=== PATIENT | male | born 1950 | race Caucasian/White ===

== ENCOUNTER 2020-03-06 17:38 | Emergency (ER) | payer OTHER ==
[2020-03-06] MEDS ORDERED: LIDOCAINE 1% MPF 5 ML VIAL ONE (18:28)
[2020-03-06] MEDS ORDERED: BUPIVACAINE 0.5% PF 10 ML VIAL ONE (18:29)
[2020-03-06] MEDS ORDERED: TETANUS & DIPHTHERIA TOX,ADULT 0.5 ML VIAL ONE (18:29)
--- NOTE | 2020-03-06 19:45 | RAD REPORT ---
EXAM DESCRIPTION: RAD - Hand Right 3 View - 03/06/2020 6:17 pm CLINICAL HISTORY: PAINlaceration, table saw injury right thumb COMPARISON: No comparisonsdelete select FINDINGS: No fractures confirmed. No acute right thumb bony abnormality identified. Elsewhere, no fracture seen. There is no dislocation or periosteal reaction noted. No foreign body o r significant soft tissue abnormality. IMPRESSION: No foreign body. No acute bone abnormality.
--- NOTE | 2020-03-06 19:56 | ER ---
Nurse's Notes [facility] Name: Matteo Hernandez Age: 69 yrs Sex: Male : 1950 Arrival Date: 03/06/2020 Time: 17:40 Bed 16 Private MD: Diagnosis: Laceration without foreign body of right thumb with damage to nail Presentation: 03/06 17:56 Chief complaint: Patient states: "I cut my right thumb with a table saw". Bleeding aa5 controlled by patient at this time. 17:56 Coronavirus screen: Proceed with normal triage. Ebola Screen: Patient negative for aa5 fever greater than or equal to 101.5 degrees Fahrenheit, and additional compatible Ebola Virus Disease symptoms. Complicating Factors: There are no complicating factors for this patient. Initial Sepsis Screen: Does the patient meet any 2 criteria? No. Patient's initial sepsis screen is negative. Does the patient have a suspected source of infection? No. Patient's initial sepsis screen is negative. Risk Assessment: Do you want to hurt yourself or someone else? Patient reports no desire to harm self or others. Onset of symptoms was March 06, 2020. 17:56 Acuity: JOHNNY 3 aa5 17:56 Method Of Arrival: Ambulatory aa5 Historical: - Allergies: 17:58 No Known Allergies; aa5 - PMHx: 17:58 Hypertension; aa5 - PSHx: 17:58 heart bypass; karl hip replacement; knee sx; Hernia repair; aa5 - Immunization history:: Last tetanus immunization: unknown. - Social history:: Smoking status: Patient reports the use of cigarette tobacco products, cigars. Screenin:00 Abuse screen: Denies threats or abuse. Nutritional screening: No deficits noted. rb1 Tuberculosis screening: No symptoms or risk factors identified. Fall Risk None identified. Assessment: 18:00 Reassessment: right thumb soaked in saline and iodine solution per MICROPALEONTOLOGIST . aa5 18:00 General: Appears in no apparent distress. Behavior is calm, cooperative. Pain: rb1 Complains of pain in palmar aspect of proximal phalanx of right thumb Pain currently is 4 out of 10 on a pain scale. Pain began 30 min ago. Neuro: Level of Consciousness is awake, alert, obeys commands, Oriented to person, place, time, situation. Cardiovascular: Capillary refill < 3 seconds. Respiratory: Airway is patent Respiratory effort is even, unlabored, Respiratory pattern is regular, symmetrical. GI: No signs and/or symptoms were reported involving the gastrointestinal system. : No signs and/or symptoms were reported regarding the genitourinary system. Derm: Skin is pink, warm \\T\\ dry. Musculoskeletal: Range of motion: intact in all extremities. Injury Description: Laceration sustained to palmar aspect of proximal phalanx of right thumb is contaminated, jagged, bleeding moderately. 18:55 Reassessment: Patient appears in no apparent distress at this time. Pt. is soaking his rb1 hand. 19:34 Reassessment: Provider at bedside performing sutures to right thumb. lp1 Vital Signs: 17:56 BP 114 / 72; Pulse 69; Resp 16 S; Temp 98.7(O); Pulse Ox 97% on R/A; Weight 83.01 kg aa5 (R); Height 5 ft. 10 in. (177.80 cm) (R); Pain 5/10; 20:07 BP 133 / 75; Pulse 67; Resp 16; Pulse Ox 97% ; ds4 17:56 Body Mass Index 26.26 (83.01 kg, 177.80 cm) aa5 ED Course: 17:40 Patient arrived in ED. as 17:44 Concepcion Deleon FNP-C is PHCP. kb 17:44 Phoenix Munoz MD is Attending Physician. kb 17:56 Arm band placed on Patient placed in an exam room, on a stretcher. aa5 18:00 Patient has correct armband on for positive identification. Bed in low position. Call rb1 light in reach. Side rails up X 1. Pulse ox on. NIBP on. 18:10 Triage completed. aa5 18:17 Gissel Richard, RN is Primary Nurse. rb1 18:18 Hand Right 3 View XRAY In Process Unspecified. EDMS 20:05 Dressings: Applied antibiotic ointment over sutures, covered with gauze and ds4 self-adherent dressing. 20:28 No provider procedures requiring assistance completed. Patient did not have IV access lp1 during this emergency room visit. Administered Medications: 18:45 Drug: Lidocaine (1 %) 1 vials Volume: 5 ml; Route: Infiltration; rb1 18:45 Drug: Bupivacaine (0.5 %) 1 vials Volume: 10 ml; Route: Infiltration; rb1 18:48 Drug: Tetanus-Diphtheria Toxoid Adult 0.5 ml {Production Grip: [employer]. Exp: rb1 11/29/2021. Lot #: [id number]. } Route: IM; Site: left deltoid; 19:30 Follow up: Response: No adverse reaction lp1 Outcome: 19:55 Discharge ordered by . jhoana 20:28 Discharged to home ambulatory. lp1 20:28 Condition: good 20:28 Discharge instructions given to patient, Instructed on discharge instructions, follow up and referral plans. wound care, Demonstrated understanding of instructions, follow-up care, wound care. 20:28 Patient left the ED. lp1 Signatures: Dispatcher [employer] EDMS Concepcion Deleon, INSPECTION MANAGER-C INSPECTION MANAGER-Cyn Al Audri, RN RN aa5 Amy Murray RN RN lp1 Mason Dominique ds4 Gissel Richard, RN RN rb1
--- NOTE | 2020-03-06 19:56 | EDPHYS ---
Physician Documentation [facility] Name: Matteo Hernandez Age: 69 yrs Sex: Male : 1950 Arrival Date: 03/06/2020 Time: 17:40 Bed 16 Private MD: ED Physician Phoenix Munoz HPI: 03/06 20:04 This 69 yrs old Male presents to ER via Ambulatory with complaints of kb Laceration. 20:04 The patient has a laceration related to: doing carpentry, from a power saw, occurred at home, and there are no complicating factors. The injury was accidental. The laceration(s) is(are) located on the palmar aspect of proximal phalanx of right thumb. Onset: The symptoms/episode began/occurred just prior to arrival. Associated signs and symptoms: The patient has no apparent associated signs or symptoms. The patient has not experienced similar symptoms in the past. The patient has not recently seen a physician. Pt cut his right thumb with saw just prior to arrival. Tissue flap noted. . Historical: - Allergies: 17:58 No Known Allergies; aa5 - PMHx: 17:58 Hypertension; aa5 - PSHx: 17:58 heart bypass; karl hip replacement; knee sx; Hernia repair; aa5 - Immunization history:: Last tetanus immunization: unknown. - Social history:: Smoking status: Patient reports the use of cigarette tobacco products, cigars. ROS: 20:02 Constitutional: Negative for fever, chills, and weight loss, Neck: Negative for injury, kb pain, and swelling, Cardiovascular: Negative for chest pain, palpitations, and edema, Respiratory: Negative for shortness of breath, cough, wheezing, and pleuritic chest pain, Abdomen/GI: Negative for abdominal pain, nausea, vomiting, diarrhea, and constipation, Back: Negative for injury and pain, MS/Extremity: Negative for injury and deformity, Neuro: Negative for headache, weakness, numbness, tingling, and seizure. 20:02 Skin: Positive for laceration(s), of the palmar aspect of proximal phalanx of right thumb. Exam: 20:02 Constitutional: This is a well developed, well nourished patient who is awake, alert, kb and in no acute distress. Head/Face: Normocephalic, atraumatic. Chest/axilla: Normal chest wall appearance and motion. Nontender with no deformity. No lesions are appreciated. Cardiovascular: Regular rate and rhythm with a normal S1 and S2. No gallops, murmurs, or rubs. Normal PMI, no JVD. No pulse deficits. Respiratory: Lungs have equal breath sounds bilaterally, clear to auscultation and percussion. No rales, rhonchi or wheezes noted. No increased work of breathing, no retractions or nasal flaring. Abdomen/GI: Soft, non-tender, with normal bowel sounds. No distension or tympany. No guarding or rebound. No evidence of tenderness throughout. MS/ Extremity: Pulses equal, no cyanosis. Neurovascular intact. Full, normal range of motion. Neuro: Awake and alert, GCS 15, oriented to person, place, time, and situation. Cranial nerves II-XII grossly intact. Motor strength 5/5 in all extremities. Sensory grossly intact. Cerebellar exam normal. Normal gait. 20:02 Skin: injury, laceration(s), the wound is approximately 4 cm(s), of the palmar aspect of proximal phalanx of right thumb, that can be described as clean, no foreign body, irregular, jagged, with mild bleeding. Vital Signs: 17:56 BP 114 / 72; Pulse 69; Resp 16 S; Temp 98.7(O); Pulse Ox 97% on R/A; Weight 83.01 kg aa5 (R); Height 5 ft. 10 in. (177.80 cm) (R); Pain 5/10; 20:07 BP 133 / 75; Pulse 67; Resp 16; Pulse Ox 97% ; ds4 17:56 Body Mass Index 26.26 (83.01 kg, 177.80 cm) aa5 Procedures: 18:38 Nerve block: (digital) of palmar aspect of proximal phalanx of right thumb Medication: kb Lidocaine 1% without epinephrine Marcaine 0.5%, Amount: 6 mls were injected, Effect: the patient has resolution of the pain, Set up for procedure. Performed by Concepcion HOUSTON Patient tolerated well. Laceration: 19:54 Wound Repair of 4cm ( 1.6in ) subcutaneous laceration to palmar aspect of proximal kb phalanx of right thumb. Irregularly shaped.. Skin/tissue flap noted.. Distal neuro/vascular/tendon intact. Anesthesia: Digital block administered with 1% lidocaine. Wound prep: Extensive cleansing with hibiclenz by me, Wound irrigation with saline by me. Skin closed with 14 5-0 Prolene using simple sutures and sterile technique. Patient tolerated well. MDM: 17:58 Patient medically screened. kb 20:02 Data reviewed: vital signs, nurses notes. Data interpreted: Pulse oximetry: on room air kb is 97 %. Interpretation: normal. Counseling: I had a detailed discussion with the patient and/or guardian regarding: the historical points, exam findings, and any diagnostic results supporting the discharge/admit diagnosis, radiology results, the need for outpatient follow up, a family practitioner, to return to the emergency department if symptoms worsen or persist or if there are any questions or concerns that arise at home. 03/06 18:01 Order name: Hand Right 3 View XRAY; Complete Time: 19:54 kb 03/06 18:01 Order name: Prolene, Sutures; Complete Time: 19:37 kb 03/06 18:01 Order name: Dressing - Wound; Complete Time: 20:05 kb 03/06 18:01 Order name: Gloves, Sterile; Complete Time: 18:51 kb 03/06 18:01 Order name: Setup Suture Tray; Complete Time: 18:51 kb Administered Medications: 18:45 Drug: Lidocaine (1 %) 1 vials Volume: 5 ml; Route: Infiltration; rb1 18:45 Drug: Bupivacaine (0.5 %) 1 vials Volume: 10 ml; Route: Infiltration; rb1 18:48 Drug: Tetanus-Diphtheria Toxoid Adult 0.5 ml {Organic Preparation Technician: [employer]. Exp: rb1 11/29/2021. Lot #: [id number]. } Route: IM; Site: left deltoid; 19:30 Follow up: Response: No adverse reaction lp1 Disposition: 03/06/20 19:55 Discharged to Home. Impression: Laceration without foreign body of right thumb with damage to nail. - Condition is Stable. - Discharge Instructions: Laceration Care, Adult, [id number]. - Medication Reconciliation Form, Thank You Letter, Antibiotic Education, Prescription Opioid Use form. - Follow up: Emergency Department; When: As needed; Reason: Worsening of condition. Follow up: Private Physician; When: 2 - 3 days; Reason: Recheck today's complaints, Continuance of care, Re-evaluation by your physician. Addendum: 03/10/2020 10:14 Co-signature as Attending Physician, Phoenix Munoz MD I agree with the assessment and k dr plan of care. Signatures: Dispatcher [employer] EDVA PanchoConcepcion, ROTATING FIELD ASSEMBLER-C ROTATING FIELD ASSEMBLER-Ckb Phoenix Munoz MD MD kdr Lucinda Bird RN RN aa5 Amy Murray RN RN lp1 Gissel Richard, RN RN rb1 Corrections: (The following items were deleted from the chart) 03/06 20:28 19:55 03/06/2020 19:55 Discharged to Home. Impression: Laceration without foreign body lp1 of right thumb with damage to nail. Condition is Stable. Forms are Medication Reconciliation Form, Thank You Letter, Antibiotic Education, Prescription Opioid Use. Follow up: Emergency Department; When: As needed; Reason: Worsening of condition. Follow up: Private Physician; When: 2 - 3 days; Reason: Recheck today's complaints, Continuance of care, Re-evaluation by your physician. kb
[2020-03-06 20:34] VITALS: TEMP 98.7; O2SAT 97
[2020-03-06 20:35] VITALS: BP 133/75
== END 2020-03-06 20:28 | disposition home or self-care (01) ==
LOC: ER 17:38
PROC: 0JQJ0ZZ Repair Right Hand Subcutaneous Tissue and Fascia, Open Approach (ICD-10-PCS; principal; 2020-03-06)
DX: S61.111A Laceration without foreign body of right thumb with damage to nail, initial encounter (principal); W31.2XXA Contact with powered woodworking and forming machines, initial encounter; Y93.89 Activity, other specified; Y92.009 Unspecified place in unspecified non-institutional (private) residence as the place of occurrence of the external cause; I10 Essential (primary) hypertension; Z72.0 Tobacco use; Z95.1 Presence of aortocoronary bypass graft
CPT/HCPCS: 64450; 90471; 90714; 99283

== ENCOUNTER 2021-03-30 09:03 | Emergency (ER) | payer OTHER, MEDICARE ==
--- OUTSIDE RECORDS SUMMARY | 2021-03-30 09:12 | XMS REPORT | Continuity of Care Document ---
:1950 Author Organization [facility] t Address [address] [place] [address] Dr. Price. [address] [place] [address] Care Team Providers Name Role Phone Barber Dodson MD Primary Care Physician Nato Smiley MD Attending Clinician Rachel TAYLOR Attending Clinician Roxana Forte MD Attending Clinician Sivakumar Mullins MD Attending Clinician Chiki Barber MD Attending Clinician Amilcar Pressley MD Attending Clinician RACHEL Attending Clinician Unavailable Shaggy Tai Attending Clinician Shaggy Tai Attending Clinician Unavailable Darwin Daily Attending Clinician SHERICE Admitting Clinician Unavailable Shaggy Tai Admitting Clinician Unavailable Darwin Daily Admitting Clinician Payers Payer Name Policy Type Policy Effective Date Expiration Date Sour ce Number [facility] MEDICAREUNITED [id number] 2019 [facility] 00:00:00 [facility] [id number] [facility] - [id number] 2019 NANDO Patel - MEDICARE [facility] CAREUNITED MEDICARE [id number] -Present Problems Condition Condition Condition Status Onset Resolution Last Treating Co mments Source Name Details Category Date Date Treatment Clinician Date Nondisplac Nondisplac Disease Active Overview : Williams ed ed 04-09 Formattin Methodi fracture fracture 00:00: g of this st of distal of distal 00 note phalanx of phalanx of might be right right different thumb, thumb, from the initial initial original. encounter encounter Added for open for open automatic fracture fracture ally from request for surgery [id number] Laceration Laceration Disease Active Overview : Williams of right of right 04-09 Formattin Met hodi thumb thumb 00:00: g of this st without without 00 note foreign foreign might be body with body with different damage to damage to from the nail nail original. Added automatic ally from request for surgery [id number] Screening Screening Disease Active [place] ston for colon for colon 02-06 Meth [place] cancer cancer 00:00: st 00 HIP Diagnosis Active 2016-10-18 Mem oria ARTHRITIS 08-05 14:26:00 l HIP 00:00: Kevin ARTHRITIS 00 Active 08/05/2016 [facility] [place] INFECTED Diagnosis Active 2016-02-05 M emoria HIP - 21:59:00 l INFECTED 00:00: Ernesto n HIP 00 Active 01/22/2016 [facility] Essential Problem 2018-11-01 Me moria (primary) 05:01:37 l hypertensi Ernesto n on Essential (primary) hypertensi on 11/01/2018 [facility] Arthritis Problem Active 2021-03-28 Me moria (disorder) 00:20:45 l [place] Arthritis (disorder) Active Problem 03/28/2021 [facility] Atheroscle Problem Active 2021-03-28 M emoria rosis of 00:20:45 l coronary Kevin artery Atheroscle (disorder) rosis of coronary artery (disorder) Active Problem 03/28/2021 [facility] Essential Problem Active 2021-03-28 Me moria hypertensi 00:20:45 l on Kevin (disorder) Essential hypertensi on (disorder) Active Problem 03/28/2021 [facility] Hyperchole Problem Active 2021-03-28 M emoria sterolemia 00:20:45 l (disorder) Ernesto n Hyperchole sterolemia (disorder) Active Problem 03/28/2021 [facility] Hyperlipid Problem Active 2021-03-28 M emoria emia 00:20:45 l (disorder) Ernesto n Hyperlipid emia (disorder) Active Problem 03/28/2021 [facility] Hypertensi Problem Active 2021-03-28 M emoria ve 00:20:45 l disorder, Kevin systemic Hypertensi arterial ve (disorder) disorder, systemic arterial (disorder) Active Problem 03/28/2021 [facility] Obesity Problem Active 2021-03-28 Jose jarrett (disorder) 00:20:45 l Obesity [place] (disorder) Active Problem 03/28/2021 [facility] Restless Problem Active 2021-03-28 Mem oria legs 00:20:45 l (disorder) Restless He rmann legs (disorder) Active Problem 03/28/2021 [facility] Benign Problem Active 2021-02-28 Memor ia hypertensi 04:10:52 l ve heart Benign Ernesto n disease hypertensi without ve heart congestive disease heart without failure congestive heart failure Active Problem 02/28/2021 eCW: [facility] Impaired Problem Active 2021-02-28 Mem oria fasting 04:10:52 l glucose Impaired Nara nn fasting glucose Active Problem 02/28/2021 eCW: [facility] Restless Problem Active 2021-02-28 Mem oria legs 04:10:52 l syndrome Restless Herm danita legs syndrome Active Problem 02/28/2021 eCW: [facility] Pure Problem Active 2021-02-28 Memor ia hyperchole 04:10:52 l sterolemia Pure Ernesto n hyperchole sterolemia Active Problem 02/28/2021 eCW: [facility] BMI Problem Active 2019-10-06 Memor ia 33.0-33.9, 05:10:18 l adult BMI Kevin 33.0-33.9, adult Active Problem 10/06/2019 eCW: [facility] Low back Problem Active 2021-02-28 Mem oria pain 04:10:52 l Low back Ernesto n pain Active Problem 02/28/2021 eCW: [facility] Coronary Problem Active 2021-02-28 Mem oria atheroscle 04:10:52 l rosis of Coronary Herm danita [place] atheroscle coronary rosis of artery [place] coronary artery Active Problem 02/28/2021 eCW: [facility] Tobacco Problem Active 2021-02-28 Jose jarrett use 04:10:52 l disorder Tobacco Nara nn use disorder Active Problem 02/28/2021 eCW: [facility] Disorder Problem Active 2021-02-28 Mem oria of 04:10:52 l prostate Disorder Herm danita of prostate Active Problem 02/28/2021 eCW: [facility] Dermatitis Diagnosis Active 2019-05-29 Memoria 04:12:11 l Kevin Dermatitis Active Diagnosis 05/29/2019 eCW: [facility] Encounter Diagnosis Active 2020-02-17 Memoria for 04:10:51 l screening, Ernesto n unspecifie Encounter d for screening, unspecifie d Active Diagnosis 02/17/2020 eCW: [facility] Encounter Diagnosis Active 2019-05-29 Memoria for 04:12:11 l general Kevin adult Encounter medical for examinatio general n with adult abnormal medical findings examinatio n with abnormal findings Active Diagnosis 05/29/2019 eCW: [facility] Hx of Problem Active 2021-02-28 Memor ia colonic 04:10:52 l polyps Hx of Kevin colonic polyps Active Problem 02/28/2021 eCW: [facility] Laceration Diagnosis Active 2020-04-04 Memoria of right 04:14:40 l thumb [place] without Laceration foreign of right body with thumb damage to without nail, foreign initial body with encounter damage to nail, initial encounter Active Diagnosis 04/04/2020 eCW: [facility] BMI Diagnosis Active 2020-03-22 Mem oria 28.0-28.9, 04:15:35 l adult BMI [place] 28.0-28.9, adult Active Diagnosis 03/22/2020 eCW: [facility] BMI Diagnosis Active 2020-02-17 Mem oria 27.0-27.9, 04:10:51 l adult BMI [place] 27.0-27.9, adult Active Diagnosis 02/17/2020 eCW: [facility] Screening Diagnosis Active 2020-02-17 Memoria for skin 04:10:51 l cancer [place] Screening for skin cancer Active Diagnosis 02/17/2020 eCW: [facility] Practice Screen for Diagnosis Active 2020-02-17 Memoria colon 04:10:51 l cancer Screen [place] for colon cancer Active Diagnosis 02/17/2020 eCW: [facility] INFECTION Diagnosis Active 2016-02-05 Memoria DUE TO 21:59:00 l OTHER [place] BARIATRIC INFECTION PROCEDU DUE TO OTHER BARIATRIC PROCEDU Active [facility] OSTEOARTHR Diagnosis Active 2016-10-18 Memoria ITIS OF 14:26:00 l HIP, [place] UNSPECIFIE OSTEOARTHR D ITIS OF HIP, UNSPECIFIE D Active [facility] Angina Problem Resolve 2021-03-28 2021-03-28 Memoria (disorder) d - 00:20:45 00:20:45 l Angina 00:00: Kevin (disorder) 00 Resolved 11/14/2004 Problem 03/28/2021 [facility] Myocardial Problem Resolve 2021-03-28 2021-03-28 Memoria infarction d 11-14 00:20:45 00:20:45 l (disorder) 00:00: Ernesto n Myocardial 00 infarction (disorder) Resolved 11/14/1993 Problem 03/28/2021 [facility] Allergies, Adverse Reactions, Alerts Allergy Allergy Status Severity Reaction(s) Onset Inactive Treating Comm ents Source Name Type Date Date Clinician Tramadol Propensi Active [facility] [place] ty to Intolerance 5-27 Metho di adverse 00:00: st reaction 00 s to drug tramadol tramadol Active stomach Memor ia upset 5-08 l 00:00: Kevin 00 cholmiac cholmiac Active swelling Jose jarrett in? ear in? ear 5-08 l drops drops 00:00: Kevin 00 Family History Family Member Diagnosis Comments Start Date Stop Date Source Natural mother Cancer [facility] Social History Social Habit Start Date Stop Date Quantity Comments Source History of tobacco Cigarette Smoker Williams use [facility] Tobacco Comment 2020-04-22 2020-04-22 cigar/day [facility] - 00:[facility]:00 00:00:00 [facility] Alcohol Comment 2020-04-22 2020-04-[address] [facility] - 00:00:00 00:00:00 [facility] Cigarettes smoked 2020-04-11 2020-04-11 Williams current (pack per 00:00:00 00:00:[address] day) - Reported Tobacco use and 2020-04-11 2020-04-11 Current user Williams exposure 00:00:00 00:00:00 [facility] Alcohol intake 2020-04-11 2020-04-11 Current drinker [place] 00:00:00 00:00:00 of alcohol [facility] (finding) Social History 2018-10-31 2018-10-31 [facility] ermann 05:59:59 05:59:59 Sex [birth year] Williams 00:00:00 00:00:00 [facility] Smoking Status Start Date Stop Date Source Current every day smoker 2020-04-11 00:00:00 [facility] Baker Medications Ordered Filled Start Stop Current Ordering Indication Dosage Frequency Signature Comments Components Source Medication Medication Date Date Medication? Clinician (SIG) Name Name ramipril Yes 10 mg = 1 M emoria mg oral 5-11 cap, PO, l capsule 19:22: Daily, # Ernesto n 00 30 cap, 0 Refill(s), Pharmacy: [facility] #[id number], 177.8, cm, 01/15/20 14:55:00 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, Height, 85.455, kg, 01/15/20 14:55:00 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, Weight ramipril Yes 10 mg = 1 M emoria mg oral 5-11 cap, PO, l capsule 19:22: Daily, # Ernesto n 00 30 cap, 0 Refill(s), Pharmacy: [facility] #[id number], 177.8, cm, 01/15/20 14:55:00 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, Height, 85.455, kg, 01/15/20 14:55:00 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, Weight ramipril 10 Yes 10 mg = 1 M emoria mg oral 5-11 cap, PO, l capsule 19:22: Daily, # Ernesto n 00 30 cap, 0 Refill(s), Pharmacy: [facility] #[id number], 177.8, cm, 01/15/20 14:55:00 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, Height, 85.455, kg, 01/15/20 14:55:00 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, Weight Gabapentin 0 Yes Iveth 2 TABS M emoria 4-17 [place] l 04:10: [place] 52 Gabapentin Yes Iveth 2 TABS M emoria 4-17 [place] l 04:10: [place] 52 Gabapentin Yes Iveth 2 TABS M emoria 4-17 [place]enni l 04:10: ascorbic 2020-0 Yes Take by [facility] (VITAMIN C 09:34: Medical ORAL) 57 Center b complex 2020-0 Yes 1{capsu QD Take [address] vitamins 6-12 le} capsule by [facility] - capsule 09:34: mouth Medical 57 daily. Center ubidecareno 2019-0 Yes Take by [facility] ne (COQ-10 6-12 [facility]. [facility] - ORAL) 09:34: Medical 57 Center docosahexae 2020-0 Yes Take by [facility] noic 6-12 [facility]. [facility] - acid/epa 09:34: Medical (FISH OIL 57 Center ORAL) furosemide 2020-0 Yes 20mg Q.5D Take [address] (LASIX) 20 6-12 by mouth 2 [facility] es - MG tablet 09:34: (two) Medical 57 times Center daily. gabapentin 2020-0 Yes 100mg Q.[id number] Take [address] (NEURONTIN) 6-12 [id number] mg by L ukes - 100 MG 09:34: 3D mouth 3 Medical capsule 57 (three) Center times daily. HYDROcodone 2020-0 Yes 1{tbl} Take [address] -acetaminop 6-12 tablet by Althea es - hen (NORCO 09:34: mouth Medica l 10-325) 57 every 6 Center 10-325 mg (six) per tablet hours as needed for Pain. multivitami 2020-0 Yes 1{capsu QD Take [address] n capsule 6-12 le} capsule by Luke s - 09:34: mouth Medical 57 daily. Center aspirin 325 2020-0 Yes 325mg QD Take [address] MG tablet 6-12 mg by [facility] - 09:34: mouth Medical 57 daily. Center atorvastati 2020-0 Yes 40mg QD Take [address] n (LIPITOR) 6-12 by mouth Luke s - 40 MG 09:34: daily. Medical tablet 57 Center bisoprolol 2020-0 Yes 10mg QD Take [address] (ZEBETA) 10 6-12 by mouth Luke s - MG tablet 09:34: daily. Medica l 57 Center ramipriL 2020-0 Yes 10mg QD Take [address] (ALTACE) 10 6-12 by mouth Luke s - MG capsule 09:34: daily. Medic al 57 Center rOPINIRole 2020-0 Yes 2mg QD Take [address] (REQUIP) 2 6-12 by mouth [facility] - MG tablet 09:34: nightly. Medi nicholas 57 Center aspirin 325 2020-0 Yes 325mg QD Take 325 [place] MG tablet 5-28 mg by Methodi 15:48: mouth st 50 daily. atorvastati 2020-0 Yes 40mg QD Take 40 mg Lin n (LIPITOR) 5-28 by mouth Meth enedina 40 MG 15:48: daily. st tablet 50 bisoprolol 2020-0 Yes 10mg QD Take 10 mg [place] (ZEBETA) 10 5-28 by mouth Meth enedina MG tablet 15:48: daily. st 50 rOPINIRole 2020-0 Yes 2mg QD Take 2 mg [place] (REQUIP) 2 5-28 by mouth Metho di MG tablet 15:48: nightly. st 50 ramipriL 2020-0 Yes 10mg QD Take 10 mg [place] [facility] (ALTACE) 10 5-28 by mouth Meth enedina MG capsule 15:48: daily. st 50 gabapentin 2020-0 Yes 100mg Q.[id number] Take 100 Lin (NEURONTIN) 5-28 [id number] mg by M ethodi 100 mg 15:48: 3D mouth 3 st capsule 50 (three) times a day. coenzyme 2020-0 Yes 10mg QD Take 10 mg [place] [facility] Q10 (Co -28 by mouth Methodi Q-10) 10 mg 15:48: daily. st capsule 50 ascorbic 2020-0 Yes Take by [place] acid - mouth. Methodi (VITAMIN C 15:48: st ORAL) 50 b complex 2020-0 Yes 1{capsu QD Take 1 [place] [facility] vitamins - le} capsule by Metho di capsule 15:48: mouth st 50 daily. MULTIVITAMI 2020-0 Yes Take by [place] [facility] N ORAL - mouth. Methodi 15:48: st 50 furosemide 2020-0 Yes 20mg Q.5D Take 20 mg [place] (LASIX) 20 - by mouth 2 Met hodi mg tablet 15:48: (two) st 50 times a day. docosahexae 2020-0 Yes Take by [place] [facility] noic 04-10 mouth. Methodi acid/epa 15:48: st (FISH OIL 50 ORAL) clindamycin 2020-0 2020- No 300mg Q.[id number] Take 1 Williams (CLEOCIN) 04-09 06-10 [id number] capsule Methodi 300 MG 00:00: 23:59 3D ([address] capsule 00 :00 total) by mouth 3 (three) times a day for 14 days. aspirin 2020-0 Yes Iveth 1 tab(s) Me moria 5-09 [place] l 04:15: 35 ropinirole 2020-0 Yes Iveth 1 tab(s) Memoria 5-09 Yenni l 04:15: 35 furosemide 2020-0 Yes Iveth 1 tab(s) Memoria 5-09 [place] l 04:15: 35 atorvastati 2020-0 Yes Iveth 1 tab(s) Memoria n 5-09 [place] l 04:15: 35 Vitamin C 2020-0 Yes Iveth 1 tab(s) Memoria 5-09 [place] l 04:15: 35 Fish Oil 2020-0 Yes Iveth 1 cap(s) M emoria 5-09 [place]i l 04:15: 35 Ramipril 2020-0 Yes Iveth TAKE 1 Mem oria 5- Yenni CAPSULE BY l 04:15: MOUTH Kevin 35 EVERY DAY gabapentin 2020-0 Yes Iveth 1 cap(s) Memoria 5-09 [place]enni l 04:15: [place] 35 aspirin 2020-0 Yes Iveth 1 tab(s) Me moria 5-09 [place] l 04:15: [place] 35 ropinirole 2020-0 Yes Iveth 1 tab(s) Memoria 5-09 Yenni l 04:15: Kevin 35 furosemide 2020-0 Yes Iveth 1 tab(s) Memoria 5-09 [place] l 04:15: [place] 35 atorvastati 2020-0 Yes Iveth 1 tab(s) Memoria n 5-09 [place]i l 04:15: [place] 35 Vitamin C 2020-0 Yes Iveth 1 tab(s) Memoria 5-09 [place] l 04:15: [place] 35 Fish Oil 2020-0 Yes Iveth 1 cap(s) M emoria 5-09 [place] l 04:15: Kevin 35 Ramipril 2020-0 Yes Iveth TAKE 1 Mem oria 5-09 [place] CAPSULE BY l 04:15: MOUTH Kevin 35 EVERY DAY gabapentin 2020-0 Yes Iveth 1 cap(s) Memoria 5-09 [place]i l 04:15: Kevin 35 aspirin 2020-0 Yes Iveth 1 tab(s) Me moria 5-09 [place]i l 04:15: Kevin 35 ropinirole 2020-0 Yes Iveth 1 tab(s) Memoria 5-09 [place]i l 04:15: 35 furosemide 2020-0 Yes Iveth 1 tab(s) Memoria 5-09 [place] l 04:15: [place] 35 atorvastati 2020-0 Yes Iveth 1 tab(s) Memoria n 5-09 [place] l 04:15: Kevin 35 Vitamin C 2020-0 Yes Iveth 1 tab(s) Memoria 5-09 [place] l 04:15: [place] 35 Fish Oil 2020-0 Yes Iveth 1 cap(s) M emoria 5-09 [place] l 04:15: [place] 35 Ramipril 2020-0 Yes Iveth TAKE 1 Mem oria 5-09 [place] CAPSULE BY l 04:15: MOUTH Kevin 35 EVERY DAY gabapentin 2020-0 Yes Iveth 1 cap(s) Memoria 5-09 [place] l 04:15: Kevin 35 amoxicillin 2020-0 Yes Iveth 1 tab(s) Memoria -clavulanat 5-08 Yenni l e 00:00: Kevin 00 amoxicillin 2020-0 Yes Iveth 1 tab(s) Memoria -clavulanat 5-08 Yenni l e 00:00: Kevin 00 amoxicillin 2020-0 Yes Iveth 1 tab(s) Memoria -clavulanat 5-08 Yenni l e 00:00: [place] 00 Ramipril 2020-0 Yes Iveth 1 cap(s) M emoria 4-05 Yenni once daily l 04:10: orally 90 [place] 51 days Ropinirole 2020-0 Yes Iveth 1 TAB(S) Memoria Hydrochlori 4-05 [place] 1-2 HRS l de 04:10: BEFORE Kevin 51 BEDTIME ORALLY 30 DAYS Gabapentin 2020-0 Yes Iveth TAKE 1 M emoria 4-05 [place] CAPSULE BY l 04:10: MOUTH Kevin 51 THREE TIMES DAILY NEEDED Ropinirole 2020-0 Yes Iveth 1 TAB(S) Memoria Hydrochlori 4-05 [place] 1-2 HRS l de 04:10: BEFORE [place] 51 BEDTIME ORALLY 30 DAYS Ramipril 2020-0 Yes Iveth 1 cap(s) M emoria 4-05 Yenni once daily l 04:10: orally 90 [place] 51 days Ropinirole 2020-0 Yes Iveth 1 TAB(S) Memoria Hydrochlori 4-05 Yenni 1-2 HRS l de 04:10: BEFORE Kevin 51 BEDTIME ORALLY 30 DAYS Gabapentin 2020-0 Yes Iveth TAKE 1 M emoria 4-05 [place]enn[place] CAPSULE BY l 04:10: MOUTH Kevin 51 THREE TIMES DAILY NEEDED Ropinirole 2020-0 Yes Iveth 1 TAB(S) Memoria Hydrochlori 4-05 Yenni 1-2 HRS l de 04:10: BEFORE [place] 51 BEDTIME ORALLY 30 DAYS Ramipril 2020-0 Yes Iveth 1 cap(s) M emoria 4-05 Yenn[place] once daily l 04:10: orally 90 [place] 51 days Ropinirole 2020-0 Yes Iveth 1 TAB(S) Memoria Hydrochlori 4-05 Yenni 1-2 HRS l de 04:10: BEFORE [place] 51 BEDTIME ORALLY 30 DAYS Gabapentin 2020-0 Yes Iveth TAKE 1 M emoria 4-05 Yenni CAPSULE BY l 04:10: MOUTH [place] 51 THREE TIMES DAILY NEEDED Ropinirole 2020-0 Yes Iveth 1 TAB(S) Memoria Hydrochlori 4-05 [place] 1-2 HRS l de 04:10: BEFORE Kevin 51 BEDTIME ORALLY 30 DAYS amLODIPine 2020-0 No 5 mg = 1 Mem oria 5 mg oral 3-03 tab, PO, l tablet 21:38: Daily, 0 Kevin 00 Refill(s) amLODIPine 2020-0 No 5 mg = 1 Mem oria 5 mg oral 3-03 tab, PO, l tablet 21:38: Daily, 0 Kevin 00 Refill(s) amLODIPine 2020-0 No 5 mg = 1 Mem oria 5 mg oral 3-03 tab, PO, l tablet 21:38: Daily, 0 Kevin 00 Refill(s) gabapentin 2020-0 Yes 100 mg = 1 M emoria 100 MG Oral 3-03 cap, PO, l Capsule 20:56: TID, 0 [place] 00 Refill(s) Fish Oil 2020-0 Yes = 1 cap, Memor ia oral 3-03 PO, Daily, l capsule 20:56: # 100 cap, Herm danita 00 0 Refill(s) gabapentin 2020-0 Yes 100 mg = 1 M emoria 100 MG Oral 3-03 cap, PO, l Capsule 20:56: TID, 0 [place] 00 Refill(s) Fish Oil 2020-0 Yes = 1 cap, Memor ia oral 3-03 PO, Daily, l capsule 20:56: # 100 cap, Herm danita 00 0 Refill(s) gabapentin 2020-0 Yes 100 mg = 1 M emoria 100 MG Oral 3-03 cap, PO, l Capsule 20:56: TID, 0 [place] 00 Refill(s) Fish Oil 2020-0 Yes = 1 cap, Memor ia oral 3-03 PO, Daily, l capsule 20:56: # 100 cap, Herm danita 00 0 Refill(s) HYDROcodone 2020-0 Yes 60{tbl} Q6H Take 60 Lin -acetaminop 3-03 tablets by Me cedric marrero (NORCO) 00:00: mouth st 10-325 mg 00 every 6 per tablet (six) hours as needed. Viagra 2019- Yes Iveth 1 tab(s) Mem oria 1-21 [place]enni l 00:00: Viagra 2019 Yes Iveth 1 tab(s) Mem oria 1-21 [place]enni l 00:00: Viagra 2019 Yes Iveth 1 tab(s) Mem oria 1-21 Yenni l 00:00: Ropinirole 2019-0 Yes Ryley 1 TAB(S) Mem oria Hydrochlori 7-16 [place] 1-2 HRS l de 04:12: BEFORE BEDTIME ORALLY 30 DAYS Ropinirole 2019-0 Yes Ryley 1 TAB(S) Mem oria Hydrochlori 7-16 [place] 1-2 HRS l de 04:12: BEFORE [place] 11 BEDTIME ORALLY 30 DAYS Ropinirole 2019-0 Yes Ryley 1 TAB(S) Mem oria Hydrochlori 7-16 [place] 1-2 HRS l de 04:12: BEFORE BEDTIME ORALLY 30 DAYS clobetasol 2019-0 Yes Iveth 1 reno Me moria topical 7-12 [place] 00:00: gabapentin 2019-0 Yes Ryley 1 cap(s) Mem oria 7-12 [place] l 00:00: clobetasol 2019-0 Yes Iveth 1 reno Me moria topical 7-12 [place] 00:00: gabapentin 2019-0 Yes Ryley 1 cap(s) Mem oria 7-12 [place] l 00:00: clobetasol 2019-0 Yes Iveth 1 reno Me moria topical 7-12 Yenni l 00:00: gabapentin 2019-0 Yes Ryley 1 cap(s) Mem oria 7-12 [place] l 00:00: Furosemide 2017-11 Yes 20 mg = 1 Me moria 20 MG Oral 2-18 tab, PO, l Tablet 00:51: Daily, PRN Nara nn 33 Edema, # 90 tab, 3 Refill(s), Pharmacy: [facility] [id number] Furosemide 2017-11 Yes 20 mg = 1 Me moria 20 MG Oral 2-18 tab, PO, l Tablet 00:51: Daily, PRN Nara nn 33 Edema, # 90 tab, 3 Refill(s), Pharmacy: [facility] [place] [id number] Furosemide 2017-11 Yes 20 mg = 1 Me moria 20 MG Oral 2-18 tab, PO, l Tablet 00:51: Daily, PRN Nara nn 33 Edema, # 90 tab, 3 Refill(s), Pharmacy: [facility] [place] [id number] bisoprolol 2017-11 Yes 10 mg = 1 Me moria 10 mg oral 2-18 tab, PO, l tablet 00:51: Daily, # Kevin 31 90 tab, 3 Refill(s), Pharmacy: [facility] [place] [id number] bisoprolol 2017-11 Yes 10 mg = 1 Me moria 10 mg oral 2-18 tab, PO, l tablet 00:51: Daily, # Kevin 31 90 tab, 3 Refill(s), Pharmacy: [facility] [place] [id number] bisoprolol 2017-11 Yes 10 mg = 1 Me moria 10 mg oral 2-18 tab, PO, l tablet 00:51: Daily, # Kevin 31 90 tab, 3 Refill(s), Pharmacy: [facility] [place] [id number] atorvastati 2017-11 Yes 40 mg = 1 M emoria n 40 mg 2-18 tab, PO, l oral tablet 00:51: Bedtime, # Gilman 26 90 tab, 3 Refill(s), Pharmacy: [facility] [place] [id number] atorvastati 2017-11 Yes 40 mg = 1 M emoria n 40 mg 2-18 tab, PO, l oral tablet 00:51: Bedtime, # Kevin 26 90 tab, 3 Refill(s), Pharmacy: [facility] [place] [id number] atorvastati 2017-11 Yes 40 mg = 1 M emoria n 40 mg 2-18 tab, PO, l oral tablet 00:51: Bedtime, # Kevin 26 90 tab, 3 Refill(s), Pharmacy: [facility] [place] [id number] ramipril 10 2017-11 Yes 10 mg = 1 M emoria mg oral 2-18 cap, PO, l capsule 00:51: Daily, # Ernesto n 00 90 cap, 3 Refill(s), Pharmacy: [facility] [place] [id number] ramipril 2017-11 Yes 10 mg = 1 M emoria mg oral 2-18 cap, PO, l capsule 00:51: Daily, # Ernesto n 00 90 cap, 3 Refill(s), Pharmacy: [facility] [place] [facility] [id number] ramipril 2017-11 Yes 10 mg = 1 M emoria mg oral 2-18 cap, PO, l capsule 00:51: Daily, # Ernesto n 00 90 cap, 3 Refill(s), Pharmacy: [facility] [id number] rOPINIRole 2017-11 Yes 2 mg = 1 Mem oria 2 mg oral 2-17 tab, PO, l tablet 21:51: Daily, 0 Kevin 00 Refill(s) rOPINIRole 2017-11 Yes 2 mg = 1 Mem oria 2 mg oral 2-17 tab, PO, l tablet 21:51: Daily, 0 Kevin 00 Refill(s) rOPINIRole 2017-11 Yes 2 mg = 1 Mem oria 2 mg oral 2-17 tab, PO, l tablet 21:51: Daily, 0 [place] 00 Refill(s) atorvastati 2017-11 No 40 mg = 1 M emoria n 40 mg 1-28 tab, PO, l oral tablet 14:43: Bedtime, # Gilman 22 90 tab, 0 Refill(s), Pharmacy: [facility] [id number] atorvastati 2017-11 No 40 mg = 1 M emoria n 40 mg 1-28 tab, PO, l oral tablet 14:43: Bedtime, # Kevin 22 90 tab, 0 Refill(s), Pharmacy: [facility] [place] [id number] atorvastati 2017-11 No 40 mg = 1 M emoria n 40 mg 1-28 tab, PO, l oral tablet 14:43: Bedtime, # [place] 22 90 tab, 0 Refill(s), Pharmacy: [facility] [place] [id number] triamcinolo Yes Ryley 1 reno Memor ia ne topical 5-22 [place] l 00:00: [place] triamcinolo Yes Ryley 1 reno Memor ia ne topical 5-22 [place] l 00:00: [place] 00 triamcinolo 2018-0 Yes Ryley 1 reno Memor ia ne topical 5-22 [place] l 00:00: Kevin 00 Acetaminoph 2015-11 Yes 1-2 tab, Me moria en 325 MG / 0-14 PO, Q4-6H, l Hydrocodone 15:08: PRN Pain, H ermann Bitartrate 00 X 5 day, # 7.5 MG Oral 42 tab, 0 Tablet Refill(s) [[place] 7.5/325] senna 8.6 2015-11 Yes 17.2 mg = Mem oria mg oral 0-14 2 tab, PO, l tablet 15:08: Bedtime, Gilman 00 PRN Constipati on, AVAILABLE OVER THE COUNTER WITHOUT PRESCRIPTI ON, X 10 day, # 20 tab, 0 Refill(s) Docusate 2015-11 Yes 100 mg = 1 Mem oria Sodium 100 0-14 cap, PO, l MG Oral 15:08: BID, Gilman Capsule 00 AVAILABLE OVER THE COUNTER WITHOUT PRESCRIPTI ON, # 60 cap, 0 Refill(s) Silver 2015-11 Yes 1 appl, Memoria Sulfadiazin 0-14 TOP, BID, l e 10 MG/ML 15:08: 0 Kevin Topical 00 Refill(s) Cream [Silvadene] Aspirin 81 2015-11 Yes 81 mg = 1 Me moria MG Chewable 0-14 tab, PO, l Tablet 15:08: BID, # 42 Ernesto n 00 tab, 0 Refill(s) Acetaminoph 2015-11 Yes 1-2 tab, Me moria en 325 MG / 0-14 PO, Q4-6H, l Hydrocodone 15:08: PRN Pain, H ermann Bitartrate 00 X 5 day, # 7.5 MG Oral 42 tab, 0 Tablet Refill(s) [[place] 7.5/325] senna 8.6 2015-11 Yes 17.2 mg = Mem oria mg oral 0-14 2 tab, PO, l tablet 15:08: Bedtime, Gilman 00 PRN Constipati on, AVAILABLE OVER THE COUNTER WITHOUT PRESCRIPTI ON, X 10 day, # 20 tab, 0 Refill(s) Docusate 2015-11 Yes 100 mg = 1 Mem oria Sodium 100 0-14 cap, PO, l MG Oral 15:08: BID, Gilman Capsule 00 AVAILABLE OVER THE COUNTER WITHOUT PRESCRIPTI ON, # 60 cap, 0 Refill(s) Silver 2015-11 Yes 1 appl, Memoria Sulfadiazin 0-14 TOP, BID, l e 10 MG/ML 15:08: 0 Gilman Topical 00 Refill(s) Cream [Silvadene] Aspirin 81 2015-11 Yes 81 mg = 1 Me moria MG Chewable 0-14 tab, PO, l Tablet 15:08: BID, # 42 Ernesto n 00 tab, 0 Refill(s) Acetaminoph 2015-11 Yes 1-2 tab, Me moria en 325 MG / 0-14 PO, Q4-6H, l Hydrocodone 15:08: PRN Pain, H ermann Bitartrate 00 X 5 day, # 7.5 MG Oral 42 tab, 0 Tablet Refill(s) [[place] 7.5/325] senna 8.6 2015-11 Yes 17.2 mg = Mem oria mg oral 0-14 2 tab, PO, l tablet 15:08: Bedtime, Kevin 00 PRN Constipati on, AVAILABLE OVER THE COUNTER WITHOUT PRESCRIPTI ON, X 10 day, # 20 tab, 0 Refill(s) Docusate 2015-11 Yes 100 mg = 1 Mem oria Sodium 100 0-14 cap, PO, l MG Oral 15:08: BID, Kevin Capsule 00 AVAILABLE OVER THE COUNTER WITHOUT PRESCRIPTI ON, # 60 cap, 0 Refill(s) Silver 2015-11 Yes 1 appl, Memoria Sulfadiazin 0-14 TOP, BID, l e 10 MG/ML 15:08: 0 Kevin Topical 00 Refill(s) Cream [Silvadene] Aspirin 81 2015-11 Yes 81 mg = 1 Me moria MG Chewable 0-14 tab, PO, l Tablet 15:08: BID, # 42 Ernesto n 00 tab, 0 Refill(s) Dexamethaso 2015-11 No Notes: Memoria ne 0-14 MEDICATION l 14:30: WASTE Kevin 00 Product Size: 10 mg Product Wasted: ___ mg Dexamethaso 2015-11 No Notes: Memoria ne 0-14 MEDICATION l 14:30: WASTE Kevin 00 Product Size: 10 mg Product Wasted: ___ mg Dexamethaso 2015-11 No Notes: Memoria ne 0-14 MEDICATION l 14:30: WASTE Product Size: 10 mg Product Wasted: ___ mg Neosporin 2015-11 No Notes: Memori a 0-14 Non-Formul l 14:00: jane Drug. Kevin 00 (Same As: Neosporin) Bisoprolol 2015-11 No Notes: Memor ia Fumarate 10 0-14 Non-Formul l MG / 14:00: jane Drug Gilman Hydrochloro (Same As: thiazide Ziac) 6.25 MG Oral Tablet Ramipril 2015-11 No Notes: Memoria 0-14 (Same l 14:00: as:Altace) Kevin 00 Neosporin 2015-11 No Notes: Memori a 0-14 Non-Formul l 14:00: jane Drug. (Same As: Neosporin) Bisoprolol 2015-11 No Notes: Memor ia Fumarate 10 0-14 Non-Formul l MG / 14:00: jane Drug [place]man Hydrochloro (Same As: thiazide Ziac) 6.25 MG Oral Tablet Ramipril 2015-11 No Notes: Memoria 0-14 (Same l 14:00: as:Altace) Gilman 00 Neosporin 2015-11 No Notes: Memori a 0-14 Non-Formul l 14:00: jane Drug. (Same As: Neosporin) Bisoprolol 2015-11 No Notes: Memor ia Fumarate 10 0-14 Non-Formul l MG / 14:00: jane Drug Kevin Hydrochloro (Same As: thiazide Ziac) 6.25 MG Oral Tablet Ramipril 2015-11 No Notes: Memoria 0-14 (Same l 14:00: as:Altace) Gilman 00 celecoxib 2015-11 Yes 200 mg = 1 Me moria 200 MG Oral 0-14 cap, PO, l Capsule 13:53: BID, # 28 Nara nn [Celebrex] 00 cap, 0 Refill(s), Pharmacy: [facility] [id number] celecoxib 2015-11 Yes 200 mg = 1 Me moria 200 MG Oral 0-14 cap, PO, l Capsule 13:53: BID, # 28 Nara nn [Celebrex] 00 cap, 0 Refill(s), Pharmacy: [facility] [id number] celecoxib 2015-11 Yes 200 mg = 1 Me moria 200 MG Oral 0-14 cap, PO, l Capsule 13:53: BID, # 28 Nara nn [Celebrex] 00 cap, 0 Refill(s), Pharmacy: [email or web address] [id number] Zofran 2015-11 No Notes: Memoria 0-14 (Same as: l 05:00: Zofran Kevin 00 ODT) Zofran 2015-11 No Notes: Memoria 0-14 (Same as: l 05:00: Zofran Gilman 00 ODT) Zofran 2015-11 No Notes: Memoria 0-14 (Same as: l 05:00: Zofran Gilman 00 ODT) ropinirole 2015-11 No Notes: Memor ia 0-14 (Same as: l 03:00: Requip) ropinirole 2015-11 No Notes: Memor ia 0-14 (Same as: l 03:00: Requip) ropinirole 2015-11 No Notes: Memor ia 0-14 (Same as: l 03:00: Requip) ropinirole 2015-11 No Notes: Memor ia 0-14 (Same as: l 02:00: Requip) atorvastati 2015-11 No Notes: Jose jarrett n 0-14 (Same as: l 02:00: Lipitor) ropinirole 2015-11 No Notes: Memor ia 0-14 (Same as: l 02:00: Requip) atorvastati 2015-11 No Notes: Jose jarrett n 0-14 (Same as: l 02:00: Lipitor) ropinirole 2015-11 No Notes: Memor ia 0-14 (Same as: l 02:00: Requip) atorvastati 2015-11 No Notes: Jose jarrett n 0-14 (Same as: l 02:00: Lipitor) Docusate 2015-11 No Notes: Memoria 0-13 (Same as: l 22:00: Colace) (Do Not Crush) Aspirin 81 2015-11 No Notes: Memor ia MG Chewable 0-13 Take with l Tablet 22:00: food. Docusate 2015-11 No Notes: Memoria 0-13 (Same as: l 22:00: Colace) Gilman 00 (Do Not Crush) Aspirin 81 2015-11 No Notes: Memor ia MG Chewable 0-13 Take with l Tablet 22:00: food. Docusate 2015-11 No Notes: Memoria 0-13 (Same as: l 22:00: Colace) Kevin 00 (Do Not Crush) Aspirin 81 2015-11 No Notes: Memor ia MG Chewable 0-13 Take with l Tablet 22:00: food. Tranexamic 2015-11 No Notes: Memor ia Acid 0-13 (Same as: l 20:30: Lysteda) Non-Formul jane Tranexamic 2015-11 No Notes: Memor ia Acid 0-13 (Same as: l 20:30: Lysteda) Non-Formul jane Tranexamic 2015-11 No Notes: Memor ia Acid 0-13 (Same as: l 20:30: Lysteda) Non-Formul jane ceFAZolin 2015-11 No Notes: Memori a (SCIP) + 0-13 (Same As: l sodium 19:00: Ancef, Kevin chloride 00 Kefzol) 0.9% INJ 100 mL MEDICATION WASTE Product Size: 1000 mg Product Wasted: ___ mg ceFAZolin 2015-11 No Notes: Memori a (SCIP) + 0-13 (Same As: l sodium 19:00: Ancef, Gilman chloride 00 Kefzol) 0.9% INJ 100 mL MEDICATION WASTE Product Size: 1000 mg Product Wasted: ___ mg ceFAZolin 2015-11 No Notes: Memori a (SCIP) + 0-13 (Same As: l sodium 19:00: Ancef, Gilman chloride 00 Kefzol) 0.9% INJ 100 mL MEDICATION WASTE Product Size: 1000 mg Product Wasted: ___ mg Silver 2015-11 No Notes: Memoria Sulfadiazin 0-13 (Same as: l e 10 MG/ML 17:00: Silvadene) H ermann Topical 00 WASTE: Cream F/P - [Silvadene] Black; E - Municipal Trash Bin Silver 2015-11 No Notes: Memoria Sulfadiazin 0-13 (Same as: l e 10 MG/ML 17:00: Silvadene) H ermann Topical 00 WASTE: Cream F/P - [Silvadene] Black; E - Municipal Trash Bin Silver 2015-11 No Notes: Memoria Sulfadiazin 0-13 (Same as: l e 10 MG/ML 17:00: Silvadene) H ermann Topical 00 WASTE: Cream F/P - [Silvadene] Black; E - Municipal Trash Bin Morphine 2015-11 No Notes: Memoria 0-13 (Same l 15:05: as:MORPhin Gilman 00 e Sulfate) Flumazenil 2015-11 No Notes: Memor ia 0-13 (Same as: l 15:05: Romazicon) Kevin 00 Naloxone 2015-11 No Notes: Memoria 0-13 Same as l 15:05: Narcan Kevin 00 Promethazin 2015-11 No Notes: Do M emoria e 0-13 not give l 15:05: IV push. Gilman 00 (Same as: Phenergan) Ondansetron 2015-11 No Notes: Jose jarrett 0-13 (Same as: l 15:05: Zofran) Kevin 00 MEDICATION WASTE Product Size: 4 mg Product Wasted: ___ mg Hydromorpho 2015-11 No Notes: Jose jarrett ne 0-13 Same as l 15:05: Dilaudid Kevin 00 Morphine 2015-11 No Notes: Memoria 0-13 (Same l 15:05: as:MORPhin Gilman 00 e Sulfate) Flumazenil 2015-11 No Notes: Memor ia 0-13 (Same as: l 15:05: Romazicon) Kevin 00 Naloxone 2015-11 No Notes: Memoria 0-13 Same as l 15:05: Narcan Kevin 00 Promethazin 2015-11 No Notes: Do M emoria e 0-13 not give l 15:05: IV push. Gilman 00 (Same as: Phenergan) Ondansetron 2015-11 No Notes: Jose jarrett 0-13 (Same as: l 15:05: Zofran) Gilman 00 MEDICATION WASTE Product Size: 4 mg Product Wasted: ___ mg Hydromorpho 2015-11 No Notes: Jose jarrtet ne 0-13 Same as l 15:05: Dilaudid Kevin 00 Morphine 2015-11 No Notes: Memoria 0-13 (Same l 15:05: as:MORPhin Gilman 00 e Sulfate) Flumazenil 2015-11 No Notes: Memor ia 0-13 (Same as: l 15:05: Romazicon) Kevin 00 Naloxone 2015-11 No Notes: Memoria 0-13 Same as l 15:05: Narcan Gilman 00 Promethazin 2015-11 No Notes: Do M emoria e 0-13 not give l 15:05: IV push. Kevin (Same as: Phenergan) Ondansetron 2015-11 No Notes: Jose jarrett 0-13 (Same as: l 15:05: Zofran) Kevin 00 MEDICATION WASTE Product Size: 4 mg Product Wasted: ___ mg Hydromorpho 2015-11 No Notes: Jose jarrett ne 0-13 Same as l 15:05: Dilaudid Gilman 00 celecoxib 2015-11 No Notes: Memori a 0-13 NSAID. l 15:00: Please Gilman 00 check indication . Not for seizure. (Same As: CeleBREX) celecoxib 2015-11 No Notes: Memori a 0-13 NSAID. l 15:00: Please Gilman 00 check indication . Not for seizure. (Same As: CeleBREX) celecoxib 2015-11 No Notes: Memori a 0-13 NSAID. l 15:00: Please Kevin 00 check indication . Not for seizure. (Same As: CeleBREX) Acetaminoph 2015-11 No Notes: Do M emoria en 325 MG / 0-13 not exceed l Hydrocodone 14:30: 4gm/day of Gilman Bitartrate 00 acetaminop 10 MG Oral hen. Tablet (Same as: [place] 325/10) Oxycodone 2015-11 No Notes: Memori a Hydrochlori 0-13 (Same as: l de 5 MG 14:30: Roxicodone Herm danita Oral Tablet 00 ) Phenergan 2015-11 No Notes: Memori a 0-13 (Same as: l 14:30: Phenergan) Kevin 00 Tylenol 2015-11 No Notes: Do Memor ia 0-13 not exceed l 14:30: 4 gm/day. 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 2015-11 No Notes: Memoria hydroxide/M 0-13 (aluminum l g 14:30: hydroxide- Kevin hydroxide/s 00 magnesium imethicone hyd- 200 mg-200 simethicon mg-20 mg/5 e mL oral 400-400-40 suspension mg/5ml 30 ml ud CL) Bisacodyl 2015-11 No Notes: Memori a 0-13 (Same As: l 14:30: Dulcolax, Kevin 00 Bisco-Lax) Ondansetron 2015-11 No Notes: Jose jarrett 0-13 (Same as: l 14:30: Zofran) Gilman 00 MEDICATION WASTE Product Size: 4 mg Product Wasted: ___ mg Morphine 2015-11 No Notes: Memoria 0-13 (Same l 14:30: as:MORPhin [place]man 00 e Sulfate) POLYETHYLEN 2015-11 No Notes: Jose jarrett E GLYCOL 0-13 Dissolve l 3350 14:30: in 8 oz of Kevin 00 water or juice. (Same as: Miralax) Acetaminoph 2015-11 No Notes: Do M emoria en 325 MG / 0-13 not exceed l Hydrocodone 14:30: 4gm/day of Kevin Bitartrate 00 acetaminop 10 MG Oral hen. Tablet (Same as: [place] 325/10) Oxycodone 2015-11 No Notes: Memori a Hydrochlori 0-13 (Same as: l de 5 MG 14:30: Roxicodone Herm danita Oral Tablet 00 ) Phenergan 2015-11 No Notes: Memori a 0-13 (Same as: l 14:30: Phenergan) Kevin 00 Tylenol 2015-11 No Notes: Do Memor ia 0-13 not exceed l 14:30: 4 gm/day. 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 2015-11 No Notes: Memoria hydroxide/M 0-13 (aluminum l g 14:30: hydroxide- Gilman hydroxide/s 00 magnesium imethicone hyd- 200 mg-200 simethicon mg-20 mg/5 e mL oral 400-400-40 suspension mg/5ml 30 ml ud CL) Bisacodyl 2015-11 No Notes: Memori a 0-13 (Same As: l 14:30: Dulcolax, Gilman 00 Bisco-Lax) Ondansetron 2015-11 No Notes: Jose jarrett 0-13 (Same as: l 14:30: Zofran) Gilman 00 MEDICATION WASTE Product Size: 4 mg Product Wasted: ___ mg Morphine 2015-11 No Notes: Memoria 0-13 (Same l 14:30: as:MORPhin [place]man 00 e Sulfate) POLYETHYLEN 2015-11 No Notes: Jose jarrett E GLYCOL 0-13 Dissolve l 3350 14:30: in 8 oz of Gilman 00 water or juice. (Same as: Miralax) Acetaminoph 2015-11 No Notes: Do M emoria en 325 MG / 0-13 not exceed l Hydrocodone 14:30: 4gm/day of Gilman Bitartrate 00 acetaminop 10 MG Oral hen. Tablet (Same as: [place] 325/10) Oxycodone 2015-11 No Notes: Memori a Hydrochlori 0-13 (Same as: l de 5 MG 14:30: Roxicodone Herm danita Oral Tablet 00 ) Phenergan 2015-11 No Notes: Memori a 0-13 (Same as: l 14:30: Phenergan) Gilman 00 Tylenol 2015-11 No Notes: Do Memor ia 0-13 not exceed l 14:30: 4 gm/day. Gilman 00 (Same as: Tylenol) Famotidine 2015-11 No Notes: Memor ia 0-13 (Same as: l 14:30: Pepcid) Gilman 00 sodium 2015-11 No 1,000 mL, Memori a chloride 0-13 Rate: 85 l 0.9% 1000 14:30: ml/hr, Ernesto n ml INJ 00 Infuse 1,000 mL over: 11.8 hr, Route: IV, Dosing Weight 96.818 kg, Total Volume: 1,000, Start date: 08/26/16 9:30:00 CDT, Duration: 30 day, Stop date: 09/25/16 9:29:00 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 Al 2015-11 No Notes: Memoria hydroxide/M 0-13 (aluminum l g 14:30: hydroxide- Gilman hydroxide/s 00 magnesium imethicone hyd- 200 mg-200 simethicon mg-20 mg/5 e mL oral 400-400-40 suspension mg/5ml 30 ml ud CL) Bisacodyl 2015-11 No Notes: Memori a 0-13 (Same As: l 14:30: Dulcolax, Gilman 00 Bisco-Lax) Ondansetron 2015-11 No Notes: Jose jarrett 0-13 (Same as: l 14:30: Zofran) Gilman 00 MEDICATION WASTE Product Size: 4 mg Product Wasted: ___ mg Morphine 2015-11 No Notes: Memoria 0-13 (Same l 14:30: as:MORPhin [place]man 00 e Sulfate) POLYETHYLEN 2015-11 No Notes: Jose jarrett E GLYCOL 0-13 Dissolve l 3350 14:30: in 8 oz of Gilman 00 water or juice. (Same as: Miralax) Ancef 2015-11 No Notes: Memoria 0-13 Same as l 12:00: Ancef Kevin 00 Zofran 2015-11 No Notes: Memoria 0-13 (Same as: l 12:00: Zofran) Kevin 00 MEDICATION WASTE Product Size: 4 mg Product Wasted: ___ mg Dexamethaso 2015-11 No Notes: Memoria ne 0-13 MEDICATION l 12:00: WASTE Gilman 00 Product Size: 10 mg Product Wasted: ___ mg Celebrex 2015-11 No Notes: Memoria 0-13 NSAID. l 12:00: Please Kevin 00 check indication . Not for seizure. (Same As: CeleBREX) Tranexamic 2015-11 No Notes: Memor ia Acid 0-13 (Same as: l 12:00: Lysteda) Gilman 00 Non-Formul jane polymyxin B 2015-11 No Notes: Jose jarrett sulfate + 0-13 (Same as: l sodium 12:00: Polymyxin Ernesto n chloride 00 B Sulfate) 0.9% INJ 250 mL vancomycin 2015-11 No Notes: Memor ia + sodium 0-13 TIME l chloride 12:00: CRITICAL Nara nn 0.9% INJ 00 MEDICATION 250 mL (Same As: Vancocin) ropivacaine 2015-11 No Notes: Memoria 0-13 NOT FOR IV l 12:00: use Ropivacain e 5 mg/mL (49.25 mL) Epinephrin e 1 mg/mL (0.5 mL) Clonidine 0.1 mg/mL (0.8 mL) Ketorolac 30 mg/mL (1 mL) Normal Saline 48.45 mL Ancef 2015-11 No Notes: Memoria 0-13 Same as l 12:00: Ancef Gilman 00 Zofran 2015-11 No Notes: Memoria 0-13 (Same as: l 12:00: Zofran) MEDICATION WASTE Product Size: 4 mg Product Wasted: ___ mg Dexamethaso 2015-11 No Notes: Memoria ne 0-13 MEDICATION l 12:00: WASTE Product Size: 10 mg Product Wasted: ___ mg Celebrex 2015-11 No Notes: Memoria 0-13 NSAID. l 12:00: Please Kevin 00 check indication . Not for seizure. (Same As: CeleBREX) Tranexamic 2015-11 No Notes: Memor ia Acid 0-13 (Same as: l 12:00: Lysteda) Kevin Non-Formul jane polymyxin B 2015-11 No Notes: Jose jarrett sulfate + 0-13 (Same as: l sodium 12:00: Polymyxin Ernesto n chloride 00 B Sulfate) 0.9% INJ 250 mL vancomycin 2015-11 No Notes: Memor ia + sodium 0-13 TIME l chloride 12:00: CRITICAL Nara nn 0.9% INJ 00 MEDICATION 250 mL (Same As: Vancocin) ropivacaine 2015-11 No Notes: Memoria 0-13 NOT FOR IV l 12:00: use Gilman 00 Ropivacain e 5 mg/mL (49.25 mL) Epinephrin e 1 mg/mL (0.5 mL) Clonidine 0.1 mg/mL (0.8 mL) Ketorolac 30 mg/mL (1 mL) Normal Saline 48.45 mL Ancef 2015-11 No Notes: Memoria 0-13 Same as l 12:00: Ancef Gilman 00 Zofran 2015-11 No Notes: Memoria 0-13 (Same as: l 12:00: Zofran) Kevin 00 MEDICATION WASTE Product Size: 4 mg Product Wasted: ___ mg Dexamethaso 2015-11 No Notes: Memoria ne 0-13 MEDICATION l 12:00: WASTE Kevin 00 Product Size: 10 mg Product Wasted: ___ mg Celebrex 2015-11 No Notes: Memoria 0-13 NSAID. l 12:00: Please Kevin 00 check indication . Not for seizure. (Same As: CeleBREX) Tranexamic 2015-11 No Notes: Memor ia Acid 0-13 (Same as: l 12:00: Lysteda) Kevin 00 Non-Formul jane polymyxin B 2015-11 No Notes: Jose jarrett sulfate + 0-13 (Same as: l sodium 12:00: Polymyxin Ernesto n chloride 00 B Sulfate) 0.9% INJ 250 mL vancomycin 2016-1 No Notes: Memor ia + sodium 0-13 TIME l chloride 12:00: CRITICAL Nara nn 0.9% INJ 00 MEDICATION 250 mL (Same As: Vancocin) ropivacaine 2015-11 No Notes: Memoria 0-13 NOT FOR IV l 12:00: use Gilman 00 Ropivacain e 5 mg/mL (49.25 mL) Epinephrin e 1 mg/mL (0.5 mL) Clonidine 0.1 mg/mL (0.8 mL) Ketorolac 30 mg/mL (1 mL) Normal Saline 48.45 mL Lactated 2015-11 No 1,000 mL, Jose jarrett Ringers 0-13 Rate: 500 l 1,000 mL 11:36: ml/hr, Kevin 00 Infuse over: 2 hr, Route: IV, Dosing Weight 96.818 kg, Total Volume: 1,000, Start date: 08/26/16 6:36:00 CDT, Duration: 30 day, Stop date: 09/25/16 6:35:00 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 Lactated 2015-11 No 1,000 mL, Jose jarrett Ringers 0-13 Rate: 500 l 1,000 mL 11:36: ml/hr, Gilman 00 Infuse over: 2 hr, Route: IV, Dosing Weight 96.818 kg, Total Volume: 1,000, Start date: 08/26/16 6:36:00 CDT, Duration: 30 day, Stop date: 09/25/16 6:35:00 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 Lactated 2015-11 No 1,000 mL, Jose jarrett Ringers 0-13 Rate: 500 l 1,000 mL 11:36: ml/hr, Gilman 00 Infuse over: 2 hr, Route: IV, Dosing Weight 96.818 kg, Total Volume: 1,000, Start date: 08/26/16 6:36:00 CDT, Duration: 30 day, Stop date: 09/25/16 6:35:00 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 Co-Q10 200 2015-11 Yes 200 mg = 1 M emoria mg oral 0-04 tab, PO, l tablet 15:03: Daily, 0 Kevin 00 Refill(s) Co-Q10 200 2015-11 Yes 200 mg = 1 M emoria mg oral 0-04 tab, PO, l tablet 15:03: Daily, 0 Gilman 00 Refill(s) Co-Q10 200 2015-11 Yes 200 mg = 1 M emoria mg oral 0-04 tab, PO, l tablet 15:03: Daily, 0 Gilman 00 Refill(s) ibuprofen 2015-11 No 400 mg = 2 Me moria 200 mg oral 0-04 tab, PO, l tablet 15:02: PRN, PRN Gilman 00 Pain, # 120 tab, 0 Refill(s) ibuprofen 2015-11 No 400 mg = 2 Me moria 200 mg oral 0-04 tab, PO, l tablet 15:02: PRN, PRN Kevin 00 Pain, # 120 tab, 0 Refill(s) ibuprofen 2015-11 No 400 mg = 2 Me moria 200 mg oral 0-04 tab, PO, l tablet 15:02: PRN, PRN Kevin 00 Pain, # 120 tab, 0 Refill(s) bisoprolol- 2015-11 Yes Iveth 1 tab(s) Memoria hydrochloro 0-03 [place] l thiazide 00:00: bisoprolol- 2015-11 Yes Iveth 1 tab(s) Memoria hydrochloro 0-03 [place] l thiazide 00:00: bisoprolol- 2015-11 Yes Iveth 1 tab(s) Memoria hydrochloro 0-03 Yenni l thiazide 00:00: Kevin 00 Chantix Yes Ryley 1 tab(s) Memori a 06-22 [place] l 00:00: Ciprodex Yes Ryley 4 gtt Memoria 06-22 [place] l 00:00: Gilman 00 Chantix Yes Ryley 1 tab(s) Memori a 06-22 [place] l 00:00: Kevin 00 Ciprodex Yes Ryley 4 gtt Memoria 06-22 Vanderz[place] l 00:00: Kevin 00 Chantix Yes Ryley 1 tab(s) Memori a 8 [place] l 00:00: Gilman 00 Ciprodex Yes Ryley 4 gtt Memoria 06-22 [place] l 00:00: Stendra Yes Iveth 1 tab(s) Me moria 4-01 [place] l 00:00: Kevin 00 Stendra Yes Iveth 1 tab(s) Me moria 4- Yenni l 00:00: Stendra Yes Iveth 1 tab(s) Me moria 4- [place] l 00:00: Bisoprolol Yes 1 tab, PO, M emoria Fumarate 10 3-16 Daily, 0 l MG / 18:30: Refill(s) Hydrochloro thiazide 6.25 MG Oral Tablet Bisoprolol Yes 1 tab, PO, M emoria Fumarate 10 3-16 Daily, 0 l MG / 18:30: Refill(s) Hydrochloro thiazide 6.25 MG Oral Tablet Bisoprolol Yes 1 tab, PO, M emoria Fumarate 10 3-16 Daily, 0 l MG / 18:30: Refill(s) Hydrochloro thiazide 6.25 MG Oral Tablet Aspirin 81 No 81 mg, Memor ia MG Chewable 316 Route: PO, l Tablet 14:00: Drug form: Nara nn 00 CHEWTAB, BID, Dosing Weight 100, kg, Start date: 01/28/16 9:00:00, Duration: 30 day, Stop date: 02/26/16 17:00:00 Sulfamethox No Notes: One Memoria azole 800 3-16 DS tablet l MG / 14:00: = Kevin Trimethopri trimethopr m 160 MG im 160mg + Oral Tablet sulfametho [Bactrim] xazole 800 mg Dose based on trimethopr im component On empty stomach with a glass of water. 1 hr before meals (Same As: Bactrim DS, Septra DS) Aspirin 81 No 81 mg, Memor ia MG Chewable 3-16 Route: PO, l Tablet 14:00: Drug form: Nara nn 00 CHEWTAB, BID, Dosing Weight 100, kg, Start date: 01/28/16 9:00:00, Duration: 30 day, Stop date: 02/26/16 17:00:00 Sulfamethox 0 No Notes: One Memoria azole 800 3-16 DS tablet l MG / 14:00: = Kevin Trimethopri 00 trimethopr m 160 MG im 160mg + Oral Tablet sulfametho [Bactrim] xazole 800 mg Dose based on trimethopr im component On empty stomach with a glass of water. 1 hr before meals (Same As: Bactrim DS, Septra DS) Aspirin 81 2016- No 81 mg, Memor ia MG Chewable 3-16 Route: PO, l Tablet 14:00: Drug form: Nara nn 00 CHEWTAB, BID, Dosing Weight 100, kg, Start date: 01/28/16 9:00:00, Duration: 30 day, Stop date: 02/26/16 17:00:00 Sulfamethox 2016-0 No Notes: One Memoria azole 800 3-16 DS tablet l MG / 14:00: = Gilman Trimethopri 00 trimethopr m 160 MG im 160mg + Oral Tablet sulfametho [Bactrim] xazole 800 mg Dose based on trimethopr im component On empty stomach with a glass of water. 1 hr before meals (Same As: Bactrim DS, Septra DS) Sulfamethox 2016-0 Yes 1 tab, PO, Memoria azole 800 3-16 BID, X 30 l MG / 13:50: day, # 60 Gilman Trimethopri 00 tab, 0 m 160 MG Refill(s) Oral Tablet [Bactrim] Aspirin 81 2016 Yes 81 mg = 1 Me moria MG Chewable 3-16 tab, PO, l Tablet 13:50: BID, # 36 Ernesto n 00 tab, 0 Refill(s) Sulfamethox 2016-0 Yes 1 tab, PO, Memoria azole 800 3-16 BID, X 30 l MG / 13:50: day, # 60 Kevin Trimethopri 00 tab, 0 m 160 MG Refill(s) Oral Tablet [Bactrim] Aspirin 81 [id number] Yes 81 mg = 1 Me moria MG Chewable 3-16 tab, PO, l Tablet 13:50: BID, # 36 Ernesto n 00 tab, 0 Refill(s) Sulfamethox 2016-0 Yes 1 tab, PO, Memoria azole 800 3-16 BID, X 30 l MG / 13:50: day, # 60 Gilman Trimethopri 00 tab, 0 m 160 MG Refill(s) Oral Tablet [Bactrim] Aspirin 81 2016-0 Yes 81 mg = 1 Me moria MG Chewable 3-16 tab, PO, l Tablet 13:50: BID, # 36 Ernesto n 00 tab, 0 Refill(s) Dexamethaso No Notes: Jose jarrett ne 3-15 Concentrat l 23:58: ion: Gilman 00 4mg/ml Dexamethaso No Notes: Jose jarrett ne 3-15 Concentrat l 23:58: ion: Kevin 00 4mg/ml Dexamethaso No Notes: Jose jarrett ne 3-15 Concentrat l 23:58: ion: Gilman 00 4mg/ml Insulin No 60 Memoria regular 3-15 units) l 21:23: WASTE: F/P Gilman 00 - Black; E - Municipal Trash Bin Stable for 28 days at room temperatur e Expires in days from ____Date Dextrose No 25 gm, 50 Jose jarrett 50% Syringe 3-15 mL, Route: l 21:23: IVP, Drug Kevin 00 Form: INJ, Dosing Weight 100, kg, PRN, PRN Blood Glucose Results, Start date: 01/27/16 16:23:00, Duration: 30 day, Stop date: 02/26/16 16:22:00 Glucagon No 1 mg, Memoria 3-15 Route: IM, l 21:23: Drug form: Kevin 00 PDR/INJ, PRN, Dosing Weight 100, kg, PRN Blood Glucose Results, Start date: 01/27/16 16:23:00, Duration: 30 day, Stop date: 02/26/16 16:22:00 Insulin 0 No 60 Memoria regular 3-15 units) l 21:23: WASTE: F/P Kevin 00 - Black; E - Municipal Trash Bin Stable for 28 days at room temperatur e Expires in days from ____Date Dextrose 0 No 25 gm, 50 Jose jarrett 50% Syringe 3-15 mL, Route: l 21:23: IVP, Drug Gilman 00 Form: INJ, Dosing Weight 100, kg, PRN, PRN Blood Glucose Results, Start date: 01/27/16 16:23:00, Duration: 30 day, Stop date: 02/26/16 16:22:00 Glucagon No 1 mg, Memoria 3-15 Route: IM, l 21:23: Drug form: Kevin 00 PDR/INJ, PRN, Dosing Weight 100, kg, PRN Blood Glucose Results, Start date: 01/27/16 16:23:00, Duration: 30 day, Stop date: 02/26/16 16:22:00 Insulin No 60 Memoria regular 3-15 units) l 21:23: WASTE: F/P Gilman - Black; E - Cnekt Trash Bin Stable for 28 days at room temperatur e Expires in days from ____Date Dextrose No 25 gm, 50 Jose jarrett 50% Syringe 3-15 mL, Route: l 21:23: IVP, Drug Kevin 00 Form: INJ, Dosing Weight 100, kg, PRN, PRN Blood Glucose Results, Start date: 01/27/16 16:23:00, Duration: 30 day, Stop date: 02/26/16 16:22:00 Glucagon No 1 mg, Memoria 3-15 Route: IM, l 21:23: Drug form: Kevin 00 PDR/INJ, PRN, Dosing Weight 100, kg, PRN Blood Glucose Results, Start date: 01/27/16 16:23:00, Duration: 30 day, Stop date: 02/26/16 16:22:00 Bisoprolol No Notes: Memor ia Fumarate 10 3-15 Non-Formul l MG / 14:00: jane Drug [place] Hydrochloro 00 (Same As: thiazide Ziac) 6.25 MG Oral Tablet Docusate No Notes: Memoria 3-15 (Same as: l 14:00: Colace) Kevin 00 (Do Not Crush) Aspirin 325 No Notes: (Do Memoria MG Enteric 3-15 Not Crush) l Coated 14:00: Do not Kevin Tablet 00 crush or chew. Bisoprolol No Notes: Memor ia Fumarate 10 3-15 Non-Formul l MG / 14:00: jane Drug Kevin Hydrochloro 00 (Same As: thiazide Ziac) 6.25 MG Oral Tablet Docusate No Notes: Memoria 3-15 (Same as: l 14:00: Colace) Kevin 00 (Do Not Crush) Aspirin 325 No Notes: (Do Memoria MG Enteric 3-15 Not Crush) l Coated 14:00: Do not Gilman Tablet 00 crush or chew. Bisoprolol No Notes: Memor ia Fumarate 10 3-15 Non-Formul l MG / 14:00: jane Drug [place] Hydrochloro 00 (Same As: thiazide Ziac) 6.25 MG Oral Tablet Docusate No Notes: Memoria 3-15 (Same as: l 14:00: Colace) Gilman 00 (Do Not Crush) Aspirin 325 No Notes: (Do Memoria MG Enteric 3-15 Not Crush) l Coated 14:00: Do not Gilman Tablet 00 crush or chew. Zofran No Notes: Memoria 3-15 (Same as: l 13:00: Zofran) Gilman 00 MEDICATION WASTE Product Size: 4 mg Product Wasted: ___ mg Zofran No Notes: Memoria 3-15 (Same as: l 13:00: Zofran) Kevin 00 MEDICATION WASTE Product Size: 4 mg Product Wasted: ___ mg Zofran No Notes: Memoria 3-15 (Same as: l 13:00: Zofran) Gilman 00 MEDICATION WASTE Product Size: 4 mg Product Wasted: ___ mg Tranexamic No Notes: Memor ia Acid 3-15 (Same as: l 05:58: Lysteda) Gilman Non-Formul jane Tranexamic No Notes: Memor ia Acid 3-15 (Same as: l 05:58: Lysteda) Kevin Non-Formul jane Tranexamic No Notes: Memor ia Acid 3-15 (Same as: l 05:58: Lysteda) Kevin Non-Formul jane ceFAZolin No 1 gm, Memoria (SCIP) 3-15 Route: l 05:00: IVPB, Drug Gilman 00 form: INJ, Q6H, Dosing Weight 100, kg, Start date: 01/27/16 0:00:00, Duration: 3 doses or times, Stop date: 01/27/16 12:00:00 ceFAZolin 2015-0 No 1 gm, Memoria (SCIP) 3-15 Route: l 05:00: IVPB, Drug Gilman 00 form: INJ, Q6H, Dosing Weight 100, kg, Start date: 01/27/16 0:00:00, Duration: 3 doses or times, Stop date: 01/27/16 12:00:00 ceFAZolin 2015-0 No 1 gm, Memoria (SCIP) 3-15 Route: l 05:00: IVPB, Drug Kevin 00 form: INJ, Q6H, Dosing Weight 100, kg, Start date: 01/27/16 0:00:00, Duration: 3 doses or times, Stop date: 01/27/16 12:00:00 Aspirin No Notes: (Do Jose jarrett 3-15 Not Crush) l 04:00: Do not Gilman 00 crush or chew. Aspirin No Notes: (Do Jose jarrett 3-15 Not Crush) l 04:00: Do not Gilman 00 crush or chew. Aspirin No Notes: (Do Jose jarrett 3-15 Not Crush) l 04:00: Do not Kevin 00 crush or chew. atorvastati No Notes: Jose jarrett n 3-15 (Same as: l 02:00: Lipitor) Gilman Vancomycin No 2000 mg: Me moria 6.67 MG/ML 3-15 infuse l Injectable 02:00: over 2.5 Her nam Solution 00 hours MEDICATION WASTE Product Size: 1000 mg Product Wasted: ___ mg ropinirole No Notes: Memor ia 3-15 (Same as: l 02:00: Requip) Gilman atorvastati No Notes: Jose jarrett n 3-15 (Same as: l 02:00: Lipitor) Kevin Vancomycin No 2000 mg: Me moria 6.67 MG/ML 3-15 infuse l Injectable 02:00: over 2.5 Her nam Solution 00 hours MEDICATION WASTE Product Size: 1000 mg Product Wasted: ___ mg ropinirole No Notes: Memor ia 3-15 (Same as: l 02:00: Requip) atorvastati No Notes: Jose jarrett n 3-15 (Same as: l 02:00: Lipitor) Vancomycin No 2001 mg: Me moria 6.67 MG/ML 3-15 infuse l Injectable 02:00: over 2.5 Her nam Solution 00 hours MEDICATION WASTE Product Size: 1000 mg Product Wasted: ___ mg ropinirole No Notes: Memor ia 3-15 (Same as: l 02:00: Requip) Hydromorpho No Notes: Jose jarrett ne 3-15 Same as l 00:18: Dilaudid Morphine No Notes: Memoria 3-15 (Same l 00:18: as:MORPhin Kevin 00 e Sulfate) Flumazenil No Notes: Memor ia 3-15 (Same as: l 00:18: Romazicon) Naloxone No Notes: Memoria 3-15 Same as l 00:18: Narcan Ephedrine No Notes: Memori a 3-15 (Same as: l 00:18: ePHEDrine Sulfate) Oxycodone No Notes: Memori a 3-15 (Same as: l 00:18: Roxicodone ) Ondansetron No Notes: Jose jarrett 3-15 (Same as: l 00:18: Zofran) MEDICATION WASTE Product Size: 4 mg Product Wasted: ___ mg Hydromorpho No Notes: Jose jarrett ne 3-15 Same as l 00:18: Dilaudid Morphine No Notes: Memoria 3-15 (Same l 00:18: as:MORPhin Kevin e Sulfate) Flumazenil No Notes: Memor ia 3-15 (Same as: l 00:18: Romazicon) Gilman 00 Naloxone No Notes: Memoria 3-15 Same as l 00:18: Narcan Ephedrine No Notes: Memori a 3-15 (Same as: l 00:18: ePHEDrine Kevin 00 Sulfate) Oxycodone No Notes: Memori a 3-15 (Same as: l 00:18: Roxicodone ) Ondansetron No Notes: Jose jarrett 3-15 (Same as: l 00:18: Zofran) Kevin 00 MEDICATION WASTE Product Size: 4 mg Product Wasted: ___ mg Hydromorpho No Notes: Jose jarrett ne 3-15 Same as l 00:18: Dilaudid Morphine No Notes: Memoria 3-15 (Same l 00:18: as:MORPhin e Sulfate) Flumazenil No Notes: Memor ia 3-15 (Same as: l 00:18: Romazicon) Gilman 00 Naloxone No Notes: Memoria 3-15 Same as l 00:18: Narcan Ephedrine No Notes: Memori a 3-15 (Same as: l 00:18: ePHEDrine Sulfate) Oxycodone No Notes: Memori a 3-15 (Same as: l 00:18: Roxicodone ) Ondansetron No Notes: Jose jarrett 3-15 (Same as: l 00:18: Zofran) Gilman 00 MEDICATION WASTE Product Size: 4 mg Product Wasted: ___ mg celecoxib No Notes: Memori a 3-15 NSAID. l 00:00: Please Kevin 00 check indication . Not for seizure. (Same As: CeleBREX) celecoxib No Notes: Memori a 3-15 NSAID. l 00:00: Please Kevin 00 check indication . Not for seizure. (Same As: CeleBREX) celecoxib No Notes: Memori a 3-15 NSAID. l 00:00: Please Gilman 00 check indication . Not for seizure. (Same As: CeleBREX) Oxycodone No Notes: Memori a Hydrochlori 3-14 (Same as: l de 5 MG 23:58: Roxicodone Herm danita Oral Tablet ) Morphine No Notes: Memoria 3-14 (Same l 23:58: as:MORPhin [place]man e Sulfate) Ondansetron No Notes: Jose jarrett 3-14 (Same as: l 23:58: Zofran) MEDICATION WASTE Product Size: 4 mg Product Wasted: ___ mg Bisacodyl No Notes: Memori a 3-14 (Same As: l 23:58: Dulcolax, Kevin Bisco-Lax) POLYETHYLEN No Notes: Jose jarrett E GLYCOL 3-14 Dissolve l 3350 23:58: in 8 oz of Gilman 00 water or juice. (Same as: Miralax) Diphenhydra No Notes: Jose jarrett mine -14 (Same as: l 23:58: Benadryl) Acetaminoph No Notes: Do M emoria en 325 MG / 3-14 not exceed l Hydrocodone 23:58: 4gm/day of Kevin Bitartrate 00 acetaminop 10 MG Oral hen. Tablet (Same as: [place] 325/10) NS 1,000 mL No 1,000 mL, M emoria 3-14 Rate: 85 l 23:58: ml/hr, Infuse over: 11.8 hr, Route: IV, Dosing Weight 100 kg, Total Volume: 1,000, When PO intake adequate, okay to saline lock, Start date: 01/26/16 18:58:00, Duration: 30 day, Stop date: 02/25/16 18:57:00 Temazepam No Notes: Memori a 3-14 (Same As: l 23:58: Restoril) Famotidine No Notes: Memor ia 3-14 (Same as: l 23:58: Pepcid) zolpidem No 5 mg, Memoria 3-14 Route: PO, l 23:58: Drug form: Gilman 00 TAB, Bedtime, Dosing Weight 100, kg, PRN Insomnia, Start date: 01/26/16 18:58:00, Duration: 30 day, Stop date: 02/25/16 18:57:00 Tylenol No Notes: Do Memor ia 3-14 not exceed l 23:58: 4 gm/day. Gilman 00 (Same as: Tylenol) Phenergan No Notes: Memori a 3-14 (Same as: l 23:58: Phenergan) [place]man Oxycodone No Notes: Memori a Hydrochlori 3-14 (Same as: l de 5 MG 23:58: Roxicodone Herm danita Oral Tablet 00 ) Morphine No Notes: Memoria 3-14 (Same l 23:58: as:MORPhin [place] e Sulfate) Ondansetron No Notes: Jose jarrett 3-14 (Same as: l 23:58: Zofran) Gilman MEDICATION WASTE Product Size: 4 mg Product Wasted: ___ mg Bisacodyl No Notes: Memori a 3-14 (Same As: l 23:58: Dulcolax, Gilman 00 Bisco-Lax) POLYETHYLEN No Notes: Jose jarrett E GLYCOL 3-14 Dissolve l 3350 23:58: in 8 oz of Kevin 00 water or juice. (Same as: Miralax) Diphenhydra No Notes: Jose jarrett mine 3-14 (Same as: l 23:58: Benadryl) Kevin Acetaminoph No Notes: Do M emoria en 325 MG / 3-14 not exceed l Hydrocodone 23:58: 4gm/day of Gilman Bitartrate 00 acetaminop 10 MG Oral hen. Tablet (Same as: [place] 325/10) NS 1,000 mL No 1,000 mL, M emoria 3-14 Rate: 85 l 23:58: ml/hr, Kevin 00 Infuse over: 11.8 hr, Route: IV, Dosing Weight 100 kg, Total Volume: 1,000, When PO intake adequate, okay to saline lock, Start date: 01/26/16 18:58:00, Duration: 30 day, Stop date: 02/25/16 18:57:00 Temazepam No Notes: Memori a 3-14 (Same As: l 23:58: Restoril) Famotidine No Notes: Memor ia 3-14 (Same as: l 23:58: Pepcid) zolpidem No 5 mg, Memoria 3-14 Route: PO, l 23:58: Drug form: Gilman 00 TAB, Bedtime, Dosing Weight 100, kg, PRN Insomnia, Start date: 01/26/16 18:58:00, Duration: 30 day, Stop date: 02/25/16 18:57:00 Tylenol No Notes: Do Memor ia 3-14 not exceed l 23:58: 4 gm/day. Kevin (Same as: Tylenol) Phenergan No Notes: Memori a 3-14 (Same as: l 23:58: Phenergan) Oxycodone No Notes: Memori a Hydrochlori 3-14 (Same as: l de 5 MG 23:58: Roxicodone Herm danita Oral Tablet ) Morphine No Notes: Memoria 3-14 (Same l 23:58: as:MORPhin Kevin e Sulfate) Ondansetron No Notes: Jose jarrett 3-14 (Same as: l 23:58: Zofran) MEDICATION WASTE Product Size: 4 mg Product Wasted: ___ mg Bisacodyl No Notes: Memori a 3-14 (Same As: l 23:58: Dulcolax, Kevin Bisco-Lax) POLYETHYLEN No Notes: Jose jarrett E GLYCOL 3-14 Dissolve l 3350 23:58: in 8 oz of Gilman 00 water or juice. (Same as: Miralax) Diphenhydra No Notes: Jose jarrett mine 3-14 (Same as: l 23:58: Benadryl) [place]man Acetaminoph No Notes: Do M emoria en 325 MG / 3-14 not exceed l Hydrocodone 23:58: 4gm/day of Kevin Bitartrate 00 acetaminop 10 MG Oral hen. Tablet (Same as: [place] 325/10) NS 1,000 mL No 1,000 mL, M emoria 01-25 Rate: 85 l 23:58: ml/hr, Infuse over: 11.8 hr, Route: IV, Dosing Weight 100 kg, Total Volume: 1,000, When PO intake adequate, okay to saline lock, Start date: 01/26/16 18:58:00, Duration: 30 day, Stop date: 02/25/16 18:57:00 Temazepam No Notes: Memori a 3-14 (Same As: l 23:58: Restoril) Famotidine No Notes: Memor ia 3-14 (Same as: l 23:58: Pepcid) zolpidem No 5 mg, Memoria 314 Route: PO, l 23:58: Drug form: TAB, Bedtime, Dosing Weight 100, kg, PRN Insomnia, Start date: 01/26/16 18:58:00, Duration: 30 day, Stop date: 02/25/16 18:57:00 Tylenol No Notes: Do Memor ia 3-14 not exceed l 23:58: 4 gm/day. (Same as: Tylenol) Phenergan No Notes: Memori a 3-14 (Same as: l 23:58: Phenergan) Dexamethaso No 10 mg, Jose jarrett ne 3-14 Route: IV, l 15:34: ONCE, Dosing Weight 100.909, kg, Start date: 01/26/16 10:34:00, Stop date: 01/26/16 10:34:00 Tranexamic No 1,950 mg, Me moria Acid 314 Route: PO, l 15:34: ONCE, Dosing Weight 100.909, kg, Start date: 01/26/16 10:34:00, Stop date: 01/26/16 10:34:00 Dexamethaso No 10 mg, Jose jarrett ne 3-14 Route: IV, l 15:34: ONCE, Dosing Weight 100.909, kg, Start date: 01/26/16 10:34:00, Stop date: 01/26/16 10:34:00 Tranexamic 2016-0 No 1,950 mg, Me moria Acid 3-14 Route: PO, l 15:34: ONCE, Dosing Weight 100.909, kg, Start date: 01/26/16 10:34:00, Stop date: 01/26/16 10:34:00 Dexamethaso 2016-0 No 10 mg, Jsoe jarrett ne 3-14 Route: IV, l 15:34: ONCE, Dosing Weight 100.909, kg, Start date: 01/26/16 10:34:00, Stop date: 01/26/16 10:34:00 Tranexamic 2016-0 No 1,950 mg, Me moria Acid 3-14 Route: PO, l 15:34: ONCE, Dosing Weight 100.909, kg, Start date: 01/26/16 10:34:00, Stop date: 01/26/16 10:34:00 Celebrex 2016-0 No 400 mg, Memori a 3-14 Route: PO, l 15:33: ONCE, Dosing Weight 100.909, kg, Start date: 01/26/16 10:33:00, Stop date: 01/26/16 10:33:00 Zofran 2016-0 No 4 mg, Memoria 3-14 Route: IV, l 15:33: ONCE, Dosing Weight 100.909, kg, Start date: 01/26/16 10:33:00, Stop date: 01/26/16 10:33:00 Celebrex 2016-0 No 400 mg, Memori a 3-14 Route: PO, l 15:33: ONCE, Dosing Weight 100.909, kg, Start date: 01/26/16 10:33:00, Stop date: 01/26/16 10:33:00 Zofran 2016-0 No 4 mg, Memoria 3-14 Route: IV, l 15:33: ONCE, Dosing Weight 100.909, kg, Start date: 01/26/16 10:33:00, Stop date: 01/26/16 10:33:00 Celebrex 2016-0 No 400 mg, Memori a 3-14 Route: PO, l 15:33: ONCE, Dosing Weight 100.909, kg, Start date: 01/26/16 10:33:00, Stop date: 01/26/16 10:33:00 Zofran 2016-0 No 4 mg, Memoria 3-14 Route: IV, l 15:33: ONCE, Dosing Weight 100.909, kg, Start date: 01/26/16 10:33:00, Stop date: 01/26/16 10:33:00 ropivacaine 2016-0 No Notes: Memoria 3-14 NOT FOR IV l 14:13: use Gilman 00 Ropivacain e 5 mg/mL (49.25 mL) Epinephrin e 1 mg/mL (0.5 mL) Clonidine 0.1 mg/mL (0.8 mL) Ketorolac 30 mg/mL (1 mL) Normal Saline 48.45 mL ropivacaine 2016-0 No Notes: Memoria 3-14 NOT FOR IV l 14:13: use Gilman 00 Ropivacain e 5 mg/mL (49.25 mL) Epinephrin e 1 mg/mL (0.5 mL) Clonidine 0.1 mg/mL (0.8 mL) Ketorolac 30 mg/mL (1 mL) Normal Saline 48.45 mL ropivacaine 2016-0 No Notes: Memoria 3-14 NOT FOR IV l 14:13: use Gilman 00 Ropivacain e 5 mg/mL (49.25 mL) Epinephrin e 1 mg/mL (0.5 mL) Clonidine 0.1 mg/mL (0.8 mL) Ketorolac 30 mg/mL (1 mL) Normal Saline 48.45 mL rOPINIRole 2016-0 Yes 0.25 mg = Me moria 0.25 mg 3-11 1 tab, PO, l oral tablet 15:41: Bedtime, # Kevin 00 30 tab, 1 Refill(s) rOPINIRole 2016-0 Yes 0.25 mg = Me moria 0.25 mg 3-11 1 tab, PO, l oral tablet 15:41: Bedtime, # Kevin 00 30 tab, 1 Refill(s) rOPINIRole Yes 0.25 mg = Me moria 0.25 mg 3-11 1 tab, PO, l oral tablet 15:41: Bedtime, # Kevin 00 30 tab, 1 Refill(s) ropinirole Yes Iveth 1 tab(s) Memoria 9-26 [place] l 00:00: ropinirole 0 Yes Iveth 1 tab(s) Memoria 9-26 Yenni l 00:00: ropinirole Yes Iveth 1 tab(s) Memoria 9-26 [place] l 00:00: Lipitor Yes Ryley 1 tab(s) Memori a 05-16 [place] l 00:00: Lipitor Yes Ryley 1 tab(s) Memori a 05-16 [place] l 00:00: Lipitor Yes Ryley 1 tab(s) Memori a 03 [place] l 00:00: [place] 0 Yes Iveth 1 tab(s) Jose jarrett 6-14 Yenni l 00:00: [place] 0 Yes Iveth 1 tab(s) Jose jarrett 6-14 [place] l 00:00: [place] 0 Yes Iveth 1 tab(s) Jose jarrett 6-14 Yenni l 00:00: Vital Signs Vital Name Observation Time Observation Value Comments Source Systolic blood 2020-04-25 08:45:00 133 mm[Hg] [facility] Diastolic blood 2020-04-25 08:45:00 65 mm[Hg] [facility] Heart rate 2020-04-25 08:45:00 53 /min [facility] Respiratory rate 2020-04-25 08:45:00 18 /min [facility] Oxygen saturation in 2020-04-25 08:45:00 99 /min [facility] - Arterial blood by Medical Ce nter Pulse oximetry Body temperature 2020-04-25 08:16:00 36.39 Selina [facility] Body height 2020-04-25 07:23:00 177.8 cm [facility] Body weight 2020-04-25 07:23:00 83.008 kg [facility] BMI 2020-04-25 07:23:00 26.26 kg/m2 [facility] Systolic blood 2020-04-10 15:24:00 104 mm[Hg] [place] [facility] pressure Diastolic blood 2020-04-10 15:24:00 62 mm[Hg] [place] [facility] pressure Heart rate 2020-04-10 15:24:00 59 /min [facility] Body temperature 2020-04-10 15:24:00 36.67 Selina [place] [facility] Respiratory rate 2020-04-10 15:24:00 17 /min [place] [facility] Oxygen saturation in 2020-04-10 15:24:00 97 /min [facility] Arterial blood by Pulse oximetry Body height 2020-04-10 10:14:00 177.8 cm [facility] Body weight 2020-04-10 10:14:00 84.823 kg [facility] BMI 2020-04-10 10:14:00 26.83 kg/m2 [facility] Height 2020-03-21 14:45:00 [facility] Weight 2020-03-21 14:45:00 [facility] [place] Temperature Oral (F) 2020-03-21 14:45:00 97.5 F [facility] [place] Diastolic (mm Hg) 2020-03-21 14:45:00 Mem orial Kevin Systolic (mm Hg) 2020-03-21 14:45:00 Jose rial Kevin Systolic (mm Hg) 2020-01-15 20:55:00 Jose rial [place] Diastolic (mm Hg) 2020-01-15 20:55:00 Mem orial [place] Heart Rate 2020-01-15 20:55:00 [facility] Kevin Height 2020-01-15 20:55:00 177.8 cm [facility] [place] Weight 2020-01-15 20:55:00 [facility] [place] BMI Calculated 2020-01-15 20:55:00 Memori al [place] Height 2020-01-10 13:30:00 [facility] [place] Weight 2020-01-10 13:30:00 [facility] Kevin Temperature Oral (F) 2020-01-10 13:30:00 97.8 F [facility] [place] Diastolic (mm Hg) 2020-01-10 13:30:00 Mem orial [place] Systolic (mm Hg) 2020-01-10 13:30:00 Jose rial Kevin Height 2019-05-25 13:10:00 [facility] Kevin Weight 2019-05-25 13:10:00 [facility] [place] Temperature Oral (F) 2019-05-25 13:10:00 96.3 F [facility] Kevin Diastolic (mm Hg) 2019-05-25 13:10:00 Mem orial [place] Systolic (mm Hg) 2019-05-25 13:10:00 Jose rial [place] Weight 2018-10-30 21:49:00 [facility] [place] Height 2018-10-30 21:49:00 177.8 cm [facility] [place] BMI Calculated 2018-10-30 21:49:00 Memori al Kevin Systolic (mm Hg) 2018-10-30 21:49:00 Jose rial Kevin Diastolic (mm Hg) 2018-10-30 21:49:00 Mem orial [place] Heart Rate 2018-10-30 21:49:00 [facility] Kevin Heart Rate 2016-08-27 12:50:00 [facility] [place] Temperature Oral (F) 2016-08-27 12:50:00 97.6 F [facility] Kevin Systolic (mm Hg) 2016-08-27 12:50:00 Jose rial [place] Diastolic (mm Hg) 2016-08-27 12:50:00 Mem orial [place] Respitory Rate 2016-08-27 12:50:00 Memori al [place] Temperature Oral (F) 2016-08-27 09:10:00 97.9 F [facility] [place] Systolic (mm Hg) 2016-08-27 09:10:00 Jose rial Kevin Diastolic (mm Hg) 2016-08-27 09:10:00 Mem orial Kevin Respitory Rate 2016-08-27 09:10:00 Memori al Kevin Heart Rate 2016-08-27 09:10:00 [facility] Kevin Heart Rate 2016-08-27 04:55:00 [facility] [place] Temperature Oral (F) 2016-08-27 04:55:00 98.3 F [facility] Kevin Respitory Rate 2016-08-27 04:55:00 Memori al [place] Systolic (mm Hg) 2016-08-27 04:55:00 Jose rial [place] Diastolic (mm Hg) 2016-08-27 04:55:00 Mem orial [place] Height 2016-08-16 20:36:00 177.8 cm [facility] [place] BMI Calculated 2016-08-16 20:36:00 Memori al [place] Weight 2016-08-16 20:36:00 [facility] Kevin Temperature Oral (F) 2016-01-28 16:20:00 97.8 F [facility] Kevin Respitory Rate 2016-01-28 16:20:00 Memori al Kevin Systolic (mm Hg) 2016-01-28 16:20:00 Jose rial Kevin Diastolic (mm Hg) 2016-01-28 16:20:00 Mem orial [place] Heart Rate 2016-01-28 16:20:00 [facility] [place] Heart Rate 2016-01-28 12:20:00 [facility] [place] Temperature Oral (F) 2016-01-28 12:20:00 97.8 F [facility] [place] Respitory Rate 2016-01-28 12:20:00 Memori al [place] Systolic (mm Hg) 2016-01-28 12:20:00 Jose rial Kevin Diastolic (mm Hg) 2016-01-28 12:20:00 Mem orial Kevin Systolic (mm Hg) 2016-01-28 09:03:00 Jose rial Kevin Diastolic (mm Hg) 2016-01-28 09:03:00 Mem orial Kevin Respitory Rate 2016-01-28 09:03:00 Memori al [place] Heart Rate 2016-01-28 09:03:00 [facility] Kevin Temperature Oral (F) 2016-01-28 09:03:00 97.8 F [facility] Kevin Weight 2016-01-26 15:51:00 [facility] [place] BMI Calculated 2016-01-26 15:51:00 Memori al [place] Height 2016-01-23 15:21:00 177.8 cm [facility] [place] Procedures Procedure Date / Time Performing Clinician Source Performed COLONOSCOPY 2020-04-25 07:54:00 Gem Ramos [facility] SARS-COV2/RT-PCR ([facility] & 2020-04-22 10:33:00 RachelGem dorman [facility] - REF [facility] MO AN ELECTIVE 2020-04-10 14:04:39 Fany Fregoso [facility] SUPRAGLOTTIC AIRWAY AVULSION, NAIL PLATE 2020-04-10 13:21:00 Scar Smiley [facility] POC GLUCOSE 2020-04-10 10:37:00 Scar Smileyodist BASIC METABOLIC PANEL 2020-04-09 19:13:00 Chucho Mckeon [facility] HC COMPLETE BLD COUNT 2020-04-09 19:13:00 Chucho Mckeon [facility] W/AUTO DIFF ESTIMATED GFR 2020-04-09 19:13:00 Chucho Mckeon COVID-19 QUALITATIVE PCR 2020-04-09 17:10:00 Scar Smiley BASIC METABOLIC PANEL 2020-04-09 17:10:00 EmaBernice ashley [facility] ESTIMATED GFR 2020-04-09 17:10:00 Bernice Boo Met hodjodie ECG PRE/POST OP 2020-04-09 16:42:11 Bernice Boo Met hodist XR FINGER 2+ VW RIGHT 2020-04-09 16:05:28 Scar Smiley [facility] Primary repair of tendon 2011-11-14 00:00:00 [facility] orial [place] Fistulectomy of 2010-11-14 00:00:00 Consuelo nam rectum<sup>1</sup> Total hip replacement 2000-11-14 00:00:00 Lefty Hickman Coronary bypass graft 1999-11-14 00:00:00 Lefty Hickman angiography Stent placement 1993-11-14 00:00:00 Consuelo nam Arthroscopy of knee 1988-11-14 00:00:00 [facility] Cystectomy<sup>2</sup> [facility] Plan of Care Planned Activity Planned Date Details Comments Source Future Scheduled 2030-04-[address] [facility] - Test 00:00:00 malignant neoplasm of [facility] Center colon (procedure) [code = 255301742] Future Scheduled 2021-06-14 INFLUENZA VACCINE [place] [facility] Test 00:00:00 [code = INFLUENZA VACCINE] Future Scheduled 2020-07-15 INFLUENZA VACCINE (#1) [facility] - Test 00:00:00 [code = INFLUENZA Medical Ce nter VACCINE (#1)] Future Scheduled 2019-11-14 Medicare IPPE (WELCOME [facility] - Test 00:00:00 TO MEDICARE) [code = Medical Center Medicare IPPE (WELCOME TO MEDICARE)] Future Scheduled 2015 PNEUMOCOCCAL 65+ YRS [facility] - Test 00:00:00 (1 of 1 - Medical Center [id number]) [code = PNEUMOCOCCAL 65+ YRS (1 of 1 - [id number])] Future Scheduled 2000 COLONOSCOPY SCREENING [place] [facility] Test 00:00:00 [code = COLONOSCOPY SCREENING] Future Scheduled 2000 SHINGLES VACCINES (#1) [place] [facility] Test 00:00:00 [code = SHINGLES VACCINES (#1)] Future Scheduled 1968 Hepatitis C screening [place] [facility] Test 00:00:00 (procedure) [code = 768970251] Future Scheduled 1966 COVID-19 VACCINE (1) [place] [facility] [facility] Test 00:00:00 [code = COVID-19 VACCINE (1)] Future Scheduled 1956 65+ PNEUMOCOCCAL [facility] Test 00:00:00 VACCINE (1 of 2 - PPSV23) [code = 65+ PNEUMOCOCCAL VACCINE (1 of 2 - PPSV23)] Encounters Start End Encounter Admission Attending Care Care Encounter Source Date/Time Date/Time Type Type Clinicians Facility Department ID 2021-03-24 2021-03-25 Outpatient [facility] [id number] 12:26:34 23:59:59 03 2021-03-24 2021-03-25 [id number] 12:26:34 23:59:59 03 2021-03-24 2021-03-25 Outpatient [facility] [id number] 12:26:34 23:59:59 03 2021-02-26 2021-02-26 [place] [id number] Memoria 15:40:00 15:40:00 [facility] 2021-02-26 2021-02-26 [place] [id number] Memoria 15:40:00 15:40:00 [facility] 2021-02-26 2021-02-26 [place] [id number] [facility] 15:40:00 15:40:00 [facility] 2021-01-05 2021-01-05 [facility] [place] [id number] [facility] 16:31:00 16:31:00 [facility] 2021-01-05 2021-01-05 [facility] [place] [id number] [facility] 16:31:00 16:31:00 [facility] 2021-01-05 2021-01-05 [facility] [place] [id number] Mem[facility] 16:31:00 16:31:00 [facility] 2021-01-05 2021-01-05 [facility] [place] [id number] Mem[facility] 13:13:00 13:13:00 [facility] 2021-01-05 2021-01-05 [facility] [place] [id number] [facility] 13:13:00 13:13:00 [facility] 2021-01-05 2021-01-05 [facility] [place] [id number] Mem[facility] 13:13:00 13:13:00 [facility] 2020 2020 Outpatient [facility], [facility] [id number] [place] 00:00:00 00:00:00 [facility] [address] 2020-05-07 2020-05-07 [facility] [place] [id number] Memoria 15:28:00 15:28:00 [facility] 2020-05-07 2020-05-07 [facility] [place] [id number] [facility] 15:28:00 15:28:00 [facility] 2020-05-07 2020-05-07 [facility] [place] [id number] Mem[facility] 15:28:00 15:28:00 [facility] 2020-04-17 2020-04-17 Outpatient [facility], [facility] [id number] [place] 00:00:00 00:00:00 [facility] [address] 2020-04-10 2020-04-10 [facility] [place] [id number] Mem[facility] 14:01:00 14:01:00 [facility] 2020-04-10 2020-04-10 [facility] [place] [id number] [facility] 14:01:00 14:01:00 [facility] 2020-04-10 2020-04-10 [facility] [place] [id number] Mem[facility] 14:01:00 14:01:00 [facility] 2020-04-10 2020-04-10 Outpatient [facility], [facility] [id number] [place] 00:00:00 00:00:00 V[facility] [address] 2020-04-09 2020-04-09 Outpatient [facility], [facility] [id number] [place] 00:00:00 00:00:00 VINCENT [address] 2020-04-09 2020-04-09 Outpatient [facility], [facility] [id number] [place] 00:00:00 00:00:00 VINCENT [address] 2020-04-09 2020-04-09 Outpatient [facility], [facility] [id number] [place] 00:00:00 00:00:00 VINCENT [address] 2020-04-09 2020-04-09 Emergency KATHIA PRESSLEY [facility] [id number] [place] 00:00:00 00:00:[address] 2020-03-31 2020-03-31 [place] [place] [id number] [facility] 11:22:00 11:22:00 [facility] 2020-03-31 2020-03-31 [facility] [place] [id number] [facility] 11:22:00 11:22:00 [facility] 2020-03-31 2020-03-31 [facility] [place] [id number] [facility] 11:22:00 11:22:00 [facility] 2020-03-21 2020-03-21 [facility] [place] [id number] [facility] 09:45:00 09:45:00 [facility] 2020-03-21 2020-03-21 Out[facility] [place] [id number] [facility] 09:45:00 09:45:00 [facility] 2020-03-21 2020-03-21 Out[facility] [place] [id number] [facility] 09:45:00 09:45:00 [facility] 2020-03-19 2020-03-19 Out[facility] [place] [id number] [facility] 10:53:00 10:53:00 [facility] 2020-03-19 2020-03-19 Out[facility] [place] [id number] [facility] 10:53:00 10:53:00 [facility] 2020-03-19 2020-03-19 Outpatient [place] [id number] [facility] 10:53:00 10:53:00 [facility] 2020-02-07 2020-02-07 Outpatient [facility] [id number] [place] 00:00:00 00:00:00 ALI [address] 2020-01-29 2020-01-29 Out[facility] [place] [id number] [facility] 10:26:00 10:26:00 [facility] TV [facility] TV 2020-01-29 2020-01-29 Outpatient [place] [id number] [facility] 10:26:00 10:26:00 [facility] TV [facility] TV 2020-01-29 2020-01-29 Outpatient [place] [id number] [facility] 10:26:00 10:26:00 [facility] TV Herm dan[facility] TV 2020-01-29 2020-01-29 Outpatient [place] [id number] [facility] 10:16:00 10:16:00 [facility] 2020-01-29 2020-01-29 Out[facility] [place] [id number] [facility] 10:16:00 10:16:00 [facility] 2020-01-29 2020-01-29 Outpatient [place] [id number] [facility] 10:16:00 10:16:00 [facility] 2020-01-15 2020-01-15 Outpatient [place], [facility] [id number] 14:45:00 23:59:59 Hu Shaggy 2020-01-15 2020-01-15 Outpatient [facility] [id number] 14:45:00 23:59:59 Hu Shaggy 2020-01-15 2020-01-15 [id number] 14:45:00 23:59:59 Hu Shaggy 2020-01-15 2020-01-15 Out[facility] [place] [id number] [facility] 13:26:00 13:26:00 [facility] 2020-01-15 2020-01-15 Outpatient [place] [id number] [facility] 13:26:00 13:26:00 [facility] 2020-01-15 2020-01-15 Out[facility] [place] [id number] [facility] 13:26:00 13:26:00 [facility] 2020-01-10 2020-01-10 Out[facility] [place] [id number] [facility] 08:30:00 08:30:00 [facility] 2020-01-10 2020-01-10 Outpatient [place] [id number] [facility] 08:30:00 08:30:00 [facility] 2020-01-10 2020-01-10 Out[facility] [place] [id number] [facility] 08:30:00 08:30:00 [facility] 2020-01-10 2020-01-10 Out[facility] [place] [id number] [facility] 08:20:00 08:20:00 [facility] 2020-01-10 2020-01-10 Outpatient [place] [id number] [facility] 08:20:00 08:20:00 [facility] 2020-01-10 2020-01-10 Out[facility] [place] [id number] [facility] 08:20:00 08:20:00 [facility] 2019-10-04 2019-10-04 Out[facility] [place] [id number] [facility] 18:41:00 18:41:00 [facility] 2019-10-04 2019-10-04 [facility] [place] [id number] [facility] 18:41:00 18:41:00 [facility] 2019-10-04 2019-10-04 [facility] [place] [id number] [facility] 18:41:00 18:41:00 [facility] 2019-10-04 2019-10-04 Out[facility] [place] [id number] [facility] 13:55:00 13:55:00 [facility] 2019-10-04 2019-10-04 [facility] [place] [id number] [facility] 13:55:00 13:55:00 [facility] 2019-10-04 2019-10-04 Out[facility] [place] [id number] [facility] 13:55:00 13:55:00 [facility] 2019-10-01 2019-10-01 Outpatient [place] [id number] [facility] 10:21:00 10:21:00 [facility] 2019-10-01 2019-10-01 Outpatient [place] [id number] [facility] 10:21:00 10:21:00 [facility] 2019-10-01 2019-10-01 Outpatient [place] [id number] [facility] 10:21:00 10:21:00 [facility] 2019-09-25 2019-09-25 Outpatient [place] [id number] [facility] 18:26:00 18:26:00 [facility] 2019-09-25 2019-09-25 Outpatient [place] [id number] [facility] 18:26:00 18:26:00 [facility] 2019-09-25 2019-09-25 Outpatient [place] [id number] [facility] 18:26:00 18:26:00 [facility] 2019-05-25 2019-05-25 Out[facility] [place] [id number] [facility] 08:10:00 08:10:00 [facility] 2019-05-25 2019-05-25 [facility] [place] [id number] 2019-05-25 2019-05-25 [facility] [place] [id number]00 [facility] 2018-10-30 2018-10-30 Outpatient Abida, [id number] 16:35:50 23:59:59 Hu Coon 8 2018-10-30 2018-10-30 Outpatient Abida [id number] 16:35:50 23:59:59 Hu Coon 8 2018-10-30 2018-10-30 Outpatient Abida [id number] 16:35:50 23:59:59 Hu Coon 8 2018-10-30 2018-10-30 Outpatient Abida [facility] [id number] 15:45:00 23:59:59 Uh Shaggy 2018-10-30 2018-10-30 Outpatient Abida [facility] [id number] 15:45:00 23:59:59 Hu Shaggy 2018-10-30 2018-10-30 Outpatient Abida [facility] [id number] 15:45:00 23:59:59 Hu Shaggy 2016-08-26 2016-08-[address] [facility] [id number] 05:29:00 11:00:00 Gerald Ame Granados 2016-08-26 2016-08-[address] [facility] [id number] 05:29:00 11:00:00 Gerald 03 Darwin 2016-08-26 2016-08-[address] [facility] [id number] 05:29:00 11:00:00 Gerald Ame Granados 2016-01-26 2016-01-28 Outpatient Killian [facility] [id number] 09:51:00 15:07:00 Gerald King Granados 2016-01-26 2016-01-28 Outpatient Killian [facility] [id number] 09:51:00 15:07:00 Gerald 02 Darwin 2016-01-26 2016-01-28 Outpatient Killian [facility] [id number] 09:51:00 15:07:00 Gerald King Granados Results Test Description Test Time Test Comments Results Result Comments Source SARS-CoV2/RT-PCR (Asymptomatic ONLY) 2020-04-23 16:21:00 Test Item Value Reference Range Interpretation Comme nts SARS-COV2/RT-PCR (test code = 25505-7) Negative Not Detected, N egative SARS-COV-2 PERFORMING LAB (test code = 57030-5) [facility]2020-04-23 16:21:00 Test Item Value Reference Range Interpretation Comments SARS-COV2/RT-PCR (test code = Negative Not Detected, Negative [id number]) SARS-COV-2 PERFORMING LAB CPL (test code = 1987089) ECG Pre/Post [id number] 16:50:26 Test Item Value Reference Range Interpretation Comments Ventricular rate (test 54 code = 253) Atrial rate (test code 54 = 255) MO interval (test code 264 = 266) QRSD interval (test 110 code = 260) QT interval (test code 466 = 264) QTC interval (test code 441 = 265) P axis 1 (test code = 83 267) QRS axis 1 (test code = -44 268) T wave axis (test code 89 = 270) EKG impression (test Sinus bradycardia with code = 273) 1st degree AV block-Left axis deviation-RSR' or QR pattern in V1 suggests right ventricular conduction delay-Inferior infarct , age undetermined-Anterior infarct , age undetermined-Abnormal ECG-No previous ECGs available-Electronical ly Signed By Ptat Lyon MD ([id number]) on 04/10/2020 4:50:23 PM Riley RetimdnfjRpwxdk9506-60-15 14:04:39Fany Fregoso CRNA 04/10/2020 2:05 PMAirwayPerformed by: Fany Fregoso CRNAAuthorized by: Hunter Barber MD Location: ORUrgency: ElectiveResident/LINE APPLIANCE ASSEMBLER/AA: Fany Fregoso CRNAPreoxygenated with 100% O2: Yes Mask Ventilation: Not attemptedFinal Airway Type: Supraglottic airwayFinal LMA: I-GelLMA Size: 4Number of Attempts at Approach: 1 +ETCO2, continuous. Atraumatic placementWilliams Quaker AQJKGNRCVRBW5586-46-26 09:11:0011.4[facility] JskavpnMJDVNVOJBFDQ0858-44-99 09:11:0061[facility] FwelaflMWQUOSKNIZPA4752-96-41 09:11:008.4[facility] KUPNIRHRQPIX5343-38-31 09:11:33409Jcwqovqj RzjcmaoKYADGQTQDZUN5762-75-12 09:11:0023[facility] GhkzasvBBBJIHIPDKGG4771-47-64 09:11:86351Yrgkmmgw Kevin ZNXURGHCFDQJ1447-52-49 09:11:004.4[facility] LclyqpzBVSJRILLIFNJ0503-96-50 09:11:0028[facility] BugxcffXQEOLTLTDNMB8046-45-72 09:11:001.22[facility] NUILKFXXJLYE1651-04-51 09:11:59488Klqvxyqy XomvgtxIDMBVZUHGL0323-29-41 09:11:00 145[facility] OrnngxbZLYRJQCWWD3703-78-17 09:11:0013.5[facility] HermannHEMATOLOGY 2016-08-27 09:11:0018.4[facility] NdnogotLJCHAADWYY9142-26-69 09:11:004.66[facility] PggepipKQPYKGYNGL4751-39-38 09:11:0013.8[facility] OeisymsSDUPCDGDEF6132-62-29 09:11:0090.1[facility] McqgaqzYGJIVQNOQD9396-32-81 09:11:0042.0[facility] XUWTSUHLUH6313-18-27 09:11:009.5[facility] GwnvsnyVHYJOYUOTS3586-08-99 09:11:00 32.9[facility] NnobnokTNLFHZAMMT1641-03-48 09:11:00 Test Item Value Reference Range Interpretation Comments MCH (test code = MCH) 29.6 pg 27.0-31.0 [facility] QmwkrfbXGMGVDLGIIKW4105-33-71 09:11:0011.4[facility] HermannELECTROLYTES 2016-08-27 09:11:0061[facility] AwtlqqmFLFLOMTLHCVD8347-23-99 09:11:008.4[facility] SkagxujSKAQVPVIZRDF0597-79-94 09:11:05035Uxztglez TasbvsyLRVLVETNDTTM2104-22-37 09:11:0023[facility] NnbnwkuOTJBZQVEDQCR8139-45-65 09:11:14625Adqoxvls Kevin MNLDTBNEXMPM1195-55-84 09:11:004.4[facility] BvbizxdPTZXXQBDUPBD1518-37-05 09:11:0028[facility] SjhflxgTUNXUMKBAGMB3191-57-11 09:11:001.22[facility] Kevin XMYTYBGSJHEV6824-11-01 09:11:84927Hplbatec QwsooaoYCKFRZNJHK4576-71-75 09:11:00 145[facility] FmjdvsbDTVHRPFZFU1781-95-30 09:11:0013.5[facility] HermannHEMATOLOGY 2016-08-27 09:11:0018.4[facility] AyhimljAMFKZVIQIL8546-65-70 09:11:004.66[facility] ZgizrnmTXXKKDSEDA8296-25-33 09:11:0013.8[facility] WwbvluzMZTGVUIRSD6582-05-58 09:11:0090.1[facility] JbkmnnrWLWHXJNILA2900-32-56 09:11:0042.0[facility] NWFJHMVCPA4608-79-85 09:11:009.5[facility] AeqmhtuLWSMTMXRPD3823-66-88 09:11:00 32.9[facility] HfzfpokAZKGHRQTAW0279-77-63 09:11:00 Test Item Value Reference Range Interpretation Comments MCH (test code = MCH) 29.6 pg 27.0-31.0 [facility] HzhjzciTLTNMDABXQUM8876-69-80 09:11:0011.4[facility] HermannELECTROLYTES 2016-08-27 09:11:0061[facility] VbtgbvoOQDRMMCOUTCN8294-82-96 09:11:008.4[facility] WjalixdLVVVXBXHHFRB8539-91-63 09:11:73461Stpduxol GrpuhohMOVODFTSILDA8328-38-54 09:11:0023[facility] TewwxtmTNRHWZEUZSHM8810-56-05 09:11:31115Xqjwdzms [facility] ILTPYEABIMIS1366-83-10 09:11:004.4[facility] CvucbjzQOBOUSCSIZQU1875-20-22 09:11:0028[facility] ChrzlqzRYULMGFZOVSM4677-12-71 09:11:001.22[facility] ZZTHZYOGOSTN9130-21-70 09:11:30188Kyeijhzs YzmjdgoOTRQTRIMXU3384-46-49 09:11:00 145[facility] VkpbeccXLDUOGFVNL0880-62-86 09:11:0013.5[facility] HermannHEMATOLOGY 2016-08-27 09:11:0018.4[facility] JoezptiQZIHWBLMLV0213-01-01 09:11:004.66[facility] RqzqptiKZGWRNNNCU7741-14-07 09:11:0013.8[facility] KteppewQCCEBSJEUX3817-56-99 09:11:0090.1[facility] TfygyjtPOMYEIGLSX4233-41-09 09:11:0042.0[facility] GNUAAXGMAJ1450-60-76 09:11:009.5[facility] QanubzkJPHFWQAGQN4764-19-64 09:11:00 32.9[facility] PynbhlrFPLAZLZTRI3856-83-20 09:11:00 Test Item Value Reference Range Interpretation Comments MCH (test code = MCH) 29.6 pg 27.0-31.0 [facility] XRLNNNG4890-34-83 15:05:00Negative (08/17/16 10:05 AM) [facility]annCHEM MIKFZ8733-96-61 15:05:0057[facility] HermannCHEM PANEL 2016-08-17 15:05:0099[facility] HermannCHEM SRCIU7787-23-27 15:05:001.3[facility] HermannCHEM ZJKWC9397-24-77 15:05:12334Mrdndxpl HermannCHEM MUXKT2534-75-59 15:05:0016[facility] HermannCHEM DGDBR4435-61-14 15:05:003.8[facility] HermannCHEM QBFRX6856-75-52 15:05:0023[facility] HermannCHEM YTIRS0591-68-34 15:05:001.30 [facility]annCHEM SLTZD1112-61-38 15:05:0033[facility] HermannCHEM PANEL 2016-08-17 15:05:42895Zdkbvrkw HermannCHEM YVGNO0987-26-25 15:05:0030[facility] HermannCHEM FOSOC3696-83-33 15:05:46147Gowfwycq HermannCHEM JQNUC8075-40-04 15:05:004.8[facility] HermannCHEM DCGSL3474-13-97 15:05:006.9[facility] HermannCHEM AOVSM5630-45-59 15:05:009.5[facility] HermannCHEM AWQDR9852-04-02 15:05:003.1 [facility]annCHEM JXLFN9925-69-23 15:05:0012[facility] HermannCHEM PANEL 2016-08-17 15:05:0011.8[facility] HermannCHEM VXTET4138-98-99 15:05:001.2[facility] MaqewmiRJNXZBXCSQ9997-73-15 15:05:009.5[facility] PpdjlarPHDSLLASNS0713-96-12 15:05:0013.7[facility] VkuutomXAMGKRUCMV2306-31-74 15:05:58129Jqazuvrj Kevin KZZOXJXRAE4351-10-61 15:05:009.6[facility] ApjhavgYABPAXIFQU9678-51-14 15:05:00 5.73[facility] YojurhlISUJIIOPAR7784-65-41 15:05:0017.6[facility] HermannHEMATOLOGY 2016-08-17 15:05:0034.1[facility] JkqrjzzKNWICONIMO5277-98-24 15:05:00 Test Item Value Reference Range Interpretation Comments MCH (test code = MCH) 30.8 pg 27.0-31.0 [facility] JplbphgMGAXFXZLSE5337-09-65 15:05:0051.7[facility] HermannHEMATOLOGY 2016-08-17 15:05:0090.3[facility] YwoovtwBRBZMVBTFT5663-22-17 15:05:000.1[facility] ZoyqmlwWTBOSYNKLN4538-06-52 15:05:001.7[facility] UglbqtgPLOAZHHJYV2462-32-81 15:05:000.4[facility] QamzyqaTCOHOYKKSP9140-72-96 15:05:000.1[facility] Kevin ALNCMMECQQ0909-20-87 15:05:000.6[facility] KdvyklqWZMGCHEKHE5952-39-00 15:05:004.3 [facility] XqhsejzKYGZCSCDVB9172-37-21 15:05:001.3[facility] HermannHEMATOLOGY 2016-08-17 15:05:0017.4[facility] QblyzioNKYSCJROKJ3157-08-46 15:05:0076.4[facility] WllxouaENGSKOKFTT4790-12-55 15:05:007.4[facility] MpxzxsgNBAKAUCBQE2113-00-73 15:05:00 Test Item Value Reference Range Interpretation Comments aPTT (test code = aPTT) 34.2 s 22.9-35.8 [facility] FomdsolFWDDAFOVLN5234-96-18 15:05:00 Test Item Value Reference Range Interpretation Comments PROTIME (test code = PROTIME) 13.6 s 12.0-14.7 [facility] AqjontfDPUJPMZWTM2034-36-63 15:05:001.02[facility]annURINE AND STOOL 2016-08-17 15:05:00Negative (08/17/16 10:05 AM)[facility] 2016-08-17 15:05:00None Seen (08/17/16 10:05 AM)[facility] 2016-08-17 15:05:000.2[facility] AND PJEKT5532-10-96 15:05:00Negative (08/17/16 10:05 AM)[facility] KPKCQ9940-05-56 15:05:00Negative *NA*(08/17/16 10:05 AM)[facility] OFWHM4938-83-24 15:05:00Small *ABN*(08/17/16 10:05 AM)[facility] JWYPK6144-36-89 15:05:00 Negative (08/17/16 10:05 AM)[facility] FUBDI7669-69-97 15:05:00 Negative (08/17/16 10:05 AM)[facility] LTHJC2014-92-11 15:05:00 Test Item Value Reference Range Interpretation Comments UA Spec Grav (test code = UA Spec 1.015 1 Grav) [facility] PSXXK5455-15-29 15:05:00Yellow *NA*(08/17/16 10:05 AM) [facility] MIRKU9601-42-73 15:05:00Negative *NA*(08/17/16 10:05 AM)[facility] KYUSG1447-99-20 15:05:00 Test Item Value Reference Range Interpretation Comments UA pH (test code = UA pH) 6.0 1 5.0-8.0 [facility] TISSK9950-58-33 15:05:00Clear (08/17/16 10:05 AM) [facility] XEIVMAD9228-92-65 15:05:00Negative (08/17/16 10:05 AM) [facility]annCHEM RCNMA6259-51-55 15:05:0057[facility] HermannCHEM PANEL 2016-08-17 15:05:0099[facility] HermannCHEM BGKBG4367-88-82 15:05:001.3[facility] HermannCHEM DBVYZ9867-08-56 15:05:92174Ijevvcjw HermannCHEM KPVJV9030-79-68 15:05:0016[facility] HermannCHEM KQGYT0780-68-59 15:05:003.8[facility] HermannCHEM QHDKU8976-32-78 15:05:0023[facility] HermannCHEM ICYOX2446-55-31 15:05:001.30 [facility]annCHEM RQQGS7447-77-35 15:05:0033[facility] HermannCHEM PANEL 2016-08-17 15:05:71675Lyexnwro HermannCHEM QYVLP2501-72-11 15:05:0030[facility] HermannCHEM SLBSR8000-14-23 15:05:00389Dsgrscza HermannCHEM XBOSU9857-53-40 15:05:004.8[facility] HermannCHEM AJLZU2520-52-03 15:05:006.9[facility] HermannCHEM HHYYV0989-25-27 15:05:009.5[facility] HermannCHEM JSGTN9366-59-22 15:05:003.1 [facility]annCHEM XBMXA9721-44-24 15:05:0012[facility] HermannCHEM PANEL 2016-08-17 15:05:0011.8[facility] HermannCHEM PJDAA7121-23-52 15:05:001.2[facility] CrlugnjMHKJKOGNBC9101-70-17 15:05:009.5[facility] NudcnujSLVFGCGKVF8395-41-25 15:05:0013.7[facility] NbwswehEDZJDFTDGC6763-86-29 15:05:73668Smwfjvul Kevin DNKKRZJTKC4891-35-22 15:05:009.6[facility] ZfqyjarUZHLLKLWEI7403-58-45 15:05:00 5.73[facility] OyipitoUFCHUIOVCD2636-80-64 15:05:0017.6[facility] HermannHEMATOLOGY 2016-08-17 15:05:0034.1[facility] XgtwcypVNACSWKHOX3569-50-88 15:05:00 Test Item Value Reference Range Interpretation Comments MCH (test code = MCH) 30.8 pg 27.0-31.0 [facility] PmilkupDNCFSEQKGW6124-36-59 15:05:0051.7[facility] HermannHEMATOLOGY 2016-08-17 15:05:0090.3[facility] ArimlmuIPXJBMABDV5485-62-76 15:05:000.1[facility] RvpkrbjXSYGNJHIMW8657-39-49 15:05:001.7[facility] WvbguhuQOPFDRUTPE6704-92-98 15:05:000.4[facility] RajqfwwYXQPBWTSBH6084-23-74 15:05:000.1[facility] LWTDATHSTS8228-78-22 15:05:000.6[facility] TymfjcnPNOAQACVEG0267-71-61 15:05:004.3 [facility] NerhsvmBSTDDCXDMP8117-52-33 15:05:001.3[facility] HermannHEMATOLOGY 2016-08-17 15:05:0017.4[facility] YkpqchyUVAHKWXNYK6104-92-23 15:05:0076.4[facility] YkvpxynOWUDMGUIFG4439-28-18 15:05:007.4[facility] AccqmivYJTXFOVQEU1690-49-39 15:05:00 Test Item Value Reference Range Interpretation Comments aPTT (test code = aPTT) 34.2 s 22.9-35.8 [facility] OlcccnmJKBWMUPGMO6377-54-79 15:05:00 Test Item Value Reference Range Interpretation Comments PROTIME (test code = PROTIME) 13.6 s 12.0-14.7 [facility] PdjsgadZJUQFAKJRA1662-89-71 15:05:001.02[facility]annURINE AND STOOL 2016-08-17 15:05:00Negative (08/17/16 10:05 AM)[facility] 2016-08-17 15:05:00None Seen (08/17/16 10:05 AM)[facility] 2016-08-17 15:05:000.2[facility]UR[facility] AND YLOXA8461-41-37 15:05:00Negative (08/17/16 10:05 AM)[facility] PKBRG5510-89-26 15:05:00Negative *NA*(08/17/16 10:05 AM)[facility] VNBEL8975-37-76 15:05:00Small *ABN*(08/17/16 10:05 AM)[facility] BGNEU4750-93-15 15:05:00 Negative (08/17/16 10:05 AM)[facility] WIBFI6718-81-79 15:05:00 Negative (08/17/16 10:05 AM)[facility] TZCKG7944-70-02 15:05:00 Test Item Value Reference Range Interpretation Comments UA Spec Grav (test code = UA Spec 1.015 1 Grav) [facility] SGZLQ1283-50-27 15:05:00Yellow *NA*(08/17/16 10:05 AM) [facility] YQDOK0228-30-43 15:05:00Negative *NA*(08/17/16 10:05 AM)[facility] NDLAG9595-42-54 15:05:00 Test Item Value Reference Range Interpretation Comments UA pH (test code = UA pH) 6.0 1 5.0-8.0 [facility] IQIFR1236-21-36 15:05:00Clear (08/17/16 10:05 AM) [facility] FIOFNJR5079-30-96 15:05:00Negative (08/17/16 10:05 AM) [facility]annCHEM QPOBC6538-08-99 15:05:0057[facility] HermannCHEM PANEL 2016-08-17 15:05:0099[facility] HermannCHEM THVIU6225-26-80 15:05:001.3[facility] HermannCHEM OMXGD5396-77-69 15:05:04620Nfwnmzla HermannCHEM TOJPH1655-67-41 15:05:0016[facility] HermannCHEM JQPXG7356-73-47 15:05:003.8[facility] HermannCHEM WRUTD8247-05-86 15:05:0023[facility] HermannCHEM ULHOD4494-42-11 15:05:001.30 [facility]annCHEM KIUZT5237-72-40 15:05:0033[facility] HermannCHEM PANEL 2016-08-17 15:05:21331Sitnajpw HermannCHEM JOIZW4981-04-16 15:05:0030[facility] HermannCHEM LLANI7806-00-66 15:05:31051Cdbvzkcx HermannCHEM GQRBF2198-14-59 15:05:004.8[facility] HermannCHEM DUQCB9365-88-61 15:05:006.9[facility] HermannCHEM YGCXI6997-06-97 15:05:009.5[facility] HermannCHEM QLWWO5419-06-07 15:05:003.1 [facility]annCHEM YJNYK2734-34-98 15:05:0012[facility] HermannCHEM PANEL 2016-08-17 15:05:0011.8[facility] HermannCHEM UVJNY1064-12-12 15:05:001.2[facility] GdrptgqKPCRGEFFQH4593-91-81 15:05:009.5[facility] KqgwzhiZOAWMTAMYR5282-20-75 15:05:0013.7[facility] JpxacgnABXEFVPTXB5757-06-60 15:05:56623Zajchfxq Kevin TAVKYDJWUX0131-97-99 15:05:009.6[facility] CrbjlttMEYOKRSTIQ1751-33-84 15:05:00 5.73[facility] PtyqbffQCDBUTUUNF7722-80-74 15:05:0017.6[facility] HermannHEMATOLOGY 2016-08-17 15:05:0034.1[facility] YdxlnosXXTQFLPSKJ8780-37-85 15:05:00 Test Item Value Reference Range Interpretation Comments MCH (test code = MCH) 30.8 pg 27.0-31.0 [facility] VkqwboyTIDVTDDYJA2801-15-85 15:05:0051.7[facility]annHEMATOLOGY 2016-08-17 15:05:0090.3[facility] MexiqynNBSAMAETGU8182-92-02 15:05:000.1[facility] NlflnnmAMOHIEZAQP2607-48-93 15:05:001.7[facility] FajwbjjDEWRLMYTQX9899-16-80 15:05:000.4[facility] UqjuuenWUCMESFNLD9845-22-89 15:05:000.1[facility] TUFJGWWMET0805-03-79 15:05:000.6[facility] RtbgewtVJRSFVNCFV5296-29-93 15:05:004.3 [facility] TldcaexQEDSTOHXRH0378-52-10 15:05:001.3[facility]annHEMATOLOGY 2016-08-17 15:05:0017.4[facility] PvubobnVPIDAGCQNP3686-51-15 15:05:0076.4[facility] AeqotcqSJNRXNVHEF0909-88-44 15:05:007.4[facility] IfkgazyARYKUOAMVQ6586-66-00 15:05:00 Test Item Value Reference Range Interpretation Comments aPTT (test code = aPTT) 34.2 s 22.9-35.8 [facility] VeyncrcPCRMUBMYNL9060-08-79 15:05:00 Test Item Value Reference Range Interpretation Comments PROTIME (test code = PROTIME) 13.6 s 12.0-14.7 [facility] ZbholeiGJHESYRRGJ0913-36-96 15:05:001.02[facility]annURINE AND STOOL 2016-08-17 15:05:00Negative (08/17/16 10:05 AM)[facility] STOOL 2016-08-17 15:05:00None Seen (08/17/16 10:05 AM)[facility] STOOL 2016-08-17 15:05:000.2[facility] AND LQJJQ4686-68-30 15:05:00Negative (08/17/16 10:05 AM)[facility] XOJXC3293-75-44 15:05:00Negative *NA*(08/17/16 10:05 AM)[facility] PRRAD7182-12-65 15:05:00Small *ABN*(08/17/16 10:05 AM)[facility] XMBMI6009-44-40 15:05:00 Negative (08/17/16 10:05 AM)[facility] VLNAA4550-43-01 15:05:00 Negative (08/17/16 10:05 AM)[facility] TFHMX9100-80-27 15:05:00 Test Item Value Reference Range Interpretation Comments UA Spec Grav (test code = UA Spec 1.015 1 Grav) [facility] ANGXB6296-04-42 15:05:00Yellow *NA*(08/17/16 10:05 AM) [facility] VJBPW4343-03-24 15:05:00Negative *NA*(08/17/16 10:05 AM)[facility] RSGEN3709-01-31 15:05:00 Test Item Value Reference Range Interpretation Comments UA pH (test code = UA pH) 6.0 1 5.0-8.0 [facility] BDVLF6641-44-93 15:05:00Clear (08/17/16 10:05 AM) [facility] HtwzoxnPBAVTGZRTV7941-28-29 08:46:0014.1[facility]annHEMATOLOGY 2016-01-28 08:46:0043.5[facility] HermannSPECIAL CZWFZNDEK0483-13-72 08:46:006.0 [facility] InqcehdMMVPNIVTTF6790-76-22 08:46:0014.1[facility]annHEMATOLOGY 2016-01-28 08:46:0043.5[facility]annSPECIAL LYYNJRPWS2490-44-66 08:46:006.0 [facility] RnasnhxGUUYWMOBSO0803-99-44 08:46:0014.1[facility]annHEMATOLOGY 2016-01-28 08:46:0043.5[facility] HermannSPECIAL DVTQMTFUP3149-44-47 08:46:006.0 [facility] HermannCHEM YKCLD2606-85-56 08:41:0057[facility] HermannCHEM PANEL 2016-01-27 08:41:001.31[facility]annCHEM TVFFL7494-83-65 08:41:20437Pfnmsvsl HermannCHEM VFIGD2498-38-09 08:41:004.1[facility]annCHEM FDYQT5936-49-01 08:41:96517Zzvniane HermannCHEM SERLR3242-65-72 08:41:0024[facility]annCHEM CYYXD0761-27-57 08:41:93922Vfbuckqu HermannCHEM KHMWP6860-51-74 08:41:0028 [facility]CHE[facility] INHQF8606-14-14 08:41:008.5[facility]annCHEM PANEL 2016-01-27 08:41:0012.1[facility] ZjjltjdOWSABZRCFQ4183-39-06 08:41:0044.5[facility] XptsumuWIIMPKAHPB9436-92-05 08:41:0014.4[facility]annCHEM DFCTS2280-40-74 08:41:0057[facility]annCHEM FMMHH5467-37-73 08:41:001.31[facility]annCHEM CXJPZ5112-86-05 08:41:48472Xbtesxyz HermannCHEM WVUNP1027-97-97 08:41:004.1 [facility]CHE[facility] LIREH2534-99-39 08:41:67781Oirvjvtb HermannCHEM PANEL 2016-01-27 08:41:0024[facility]annCHEM PDXFJ2770-13-42 08:41:13114Qwqnvsum HermannCHEM FOVUI8782-26-94 08:41:0028[facility]annCHEM HMQHS4552-01-29 08:41:008.5[facility]annCHE[facility] DZDWQ1857-30-16 08:41:0012.1[facility] VYEHOAKERU7743-31-92 08:41:0044.5[facility] EyrisakOQXWHJDETJ6824-86-82 08:41:00 14.4[facility]annCHEM NSBJT5261-19-55 08:41:0057[facility]annCHEM PANEL 2016-01-27 08:41:001.31[facility]annCHEM JIAMZ4148-06-21 08:41:35544Bmifhyom HermannCHEM XTQJR4658-61-67 08:41:004.1[facility]annCHEM ROYRH0207-72-31 08:41:36402Nquyyeaf HermannCHEM GGKYL8261-19-99 08:41:0024[facility]annCHEM UDCIH5815-57-49 08:41:86704Fcnhjonl HermannCHEM KFKKE9435-64-85 08:41:0028 [facility]CHE[facility] QVHSO5260-24-46 08:41:008.5[facility]annCHEM PANEL 2016-01-27 08:41:0012.1[facility] EydrauzYFZRPQVHSN0438-13-24 08:41:0044.5[facility] VkhgdniOMGLNTDHFL3944-11-19 08:41:0014.4[facility] HermannBLOOD BANK RESULTS 2016-01-23 15:57:00Negative (01/23/16 9:57 AM)[facility]annCHEM PANEL 2016-01-23 15:57:003.6[facility]annCHEM GHMTQ4826-26-24 15:57:0015[facility]annCHEM WBVMO4698-26-82 15:57:000.9[facility]annCHEM MZGRU0028-76-79 15:57:0010.7[facility]annCHEM PYUMV3301-70-92 15:57:0068[facility]annCHE[facility] HFJPQ7868-28-23 15:57:006.7[facility]annCHEM VAZLO3567-23-86 15:57:92488 [facility]annCHE[facility] EMSYF2201-24-07 15:57:0031[facility]annCHEM PANEL 2016-01-23 15:57:009.0[facility]annCHE[facility] GMSPE1451-36-66 15:57:0044[facility]annCHEM RDVKG0665-59-98 15:57:003.1[facility]annCHEM DMPVF5920-17-00 15:57:0025[facility]annCHEM ADCVP3020-44-50 15:57:000.6[facility]annCHEM RGDRR7887-00-28 15:57:16924Kitpchnk HermannCHEM SIFWN8867-67-67 15:57:0017 [facility]CHE[facility] ONOJA5434-69-71 15:57:07486Owenzqnh HermannCHEM PANEL 2016-01-23 15:57:001.13[facility]annCHEM VLBGW8928-35-08 15:57:05424Hvvrjbwc HermannCHEM HJONR5900-24-07 15:57:004.7[facility] DhxygvwKAJSAIIRBV5308-60-56 15:57:00 Test Item Value Reference Range Interpretation Comments aPTT (test code = aPTT) 33.8 s 22.9-35.8 [facility] JcdumspAYSGHZYABH8962-35-37 15:57:00 Test Item Value Reference Range Interpretation Comments PROTIME (test code = PROTIME) 13.8 s 12.0-14.7 [facility] FfzfohzXDPZUXJPEG4918-15-65 15:57:001.03[facility] HermannHEMATOLOGY 2016-01-23 15:57:0015[facility] CupfsflGXRKSVJSQO7560-82-45 15:57:0049.4[facility]URINE AND XXOCT9566-18-93 15:57:00None Seen (01/23/16 9:57 AM)[facility] YXNPF9723-36-04 15:57:00Clear (01/23/16 9:57 AM)[facility]INE AND ZXPHR9624-51-17 15:57:00Yellow *NA*(01/23/16 9:57 AM)[facility] URINE AND FUOUC3495-35-76 15:57:00Negative (01/23/16 9:57 AM)[facility] URINE AND VSDVV2271-27-12 15:57:00 Test Item Value Reference Range Interpretation Comments UA pH (test code = UA pH) 5.5 1 5.0-8.0 [facility] [id number] 15:57:00 Test Item Value Reference Range Interpretation Comments UA Spec Grav (test code = UA Spec 1.015 1 Grav) [facility] CBLJO2406-63-79 15:57:00Negative *NA*(01/23/16 9:57 AM) [facility] YGJEG1672-02-65 15:57:00Negative *NA*(01/23/16 9:57 AM) [facility] [id number] 15:57:00Negative (01/23/16 9:57 AM) [facility] YLIUE5516-77-66 15:57:00Negative (01/23/16 9:57 AM) [facility] NBPYF4749-77-05 15:57:00Negative (01/23/16 9:57 AM) [facility] WHJQZ7254-32-46 15:57:000.2[facility] KTEOS1560-08-05 15:57:00Small *ABN*(01/23/16 9:57 AM)[facility]annBLOOD BANK GFZSZZX6786-30-70 15:57:00Negative (01/23/16 9:57 AM)[facility]annCHEM PANEL 2016-01-23 15:57:003.6[facility]annCHEM XFIOU3394-69-17 15:57:0015[facility]annCHEM XJHAM1126-15-79 15:57:000.9[facility]annCHEM YGQZV2245-99-32 15:57:0010.7[facility]annCHEM BRJDI1288-32-83 15:57:0068[facility]annCHEM YLYGT2591-35-62 15:57:006.7[facility]annCHEM IGJFM2358-70-22 15:57:18184 [facility]CHE[facility] HTYID6462-53-24 15:57:0031[facility]annCHEM PANEL 2016-01-23 15:57:009.0[facility]annCHEM HXNGD1791-93-48 15:57:0044[facility]annCHEM QGUDA7172-13-78 15:57:003.1[facility]annCHEM QPNCS9078-26-52 15:57:0025[facility]annCHEM EFHEQ6994-82-25 15:57:000.6[facility]annCHEM JYEEA4026-17-68 15:57:06115Avkqkifa HermannCHEM RLLLJ5141-93-30 15:57:0017 [facility]CHE[facility] EKJGD8589-02-51 15:57:76580Ghsecpnb HermannCHEM PANEL 2016-01-23 15:57:001.13[facility]annCHEM CDKST2249-33-28 15:57:68693Aadpkhnb HermannCHEM AGSTX1290-15-48 15:57:004.7[facility] RsrdejjGGXSCJBTDV0667-31-12 15:57:00 Test Item Value Reference Range Interpretation Comments aPTT (test code = aPTT) 33.8 s 22.9-35.8 [facility] LlhlbtkLSUXFDMEEG0281-86-96 15:57:00 Test Item Value Reference Range Interpretation Comments PROTIME (test code = PROTIME) 13.8 s 12.0-14.7 [facility] SgtjkhzAUVHDEJXTZ6492-32-90 15:57:001.03[facility] HermannHEMATOLOGY 2016-01-23 15:57:0015[facility] AuaoywyIUDTJOCKOE4438-58-12 15:57:0049.4[facility] AND DMBIE9364-82-65 15:57:00None Seen (01/23/16 9:57 AM)[facility] GRDVV9210-40-37 15:57:00Clear (01/23/16 9:57 AM)[facility] AND KGQQC8935-90-78 15:57:00Yellow *NA*(01/23/16 9:57 AM)[facility]INE AND [id number] 15:57:00Negative (01/23/16 9:57 AM)[facility]INE AND [id number] 15:57:00 Test Item Value Reference Range Interpretation Comments UA pH (test code = UA pH) 5.5 1 5.0-8.0 [facility] [id number] 15:57:00 Test Item Value Reference Range Interpretation Comments UA Spec Grav (test code = UA Spec 1.015 1 Grav) [facility] RXEPW0517-61-24 15:57:00Negative *NA*(01/23/16 9:57 AM) [facility] MKTZQ8387-76-50 15:57:00Negative *NA*(01/23/16 9:57 AM) [facility] [id number] 15:57:00Negative (01/23/16 9:57 AM) [facility] DIGCC2557-06-86 15:57:00Negative (01/23/16 9:57 AM) [facility] GEKLJ0997-60-10 15:57:00Negative (01/23/16 9:57 AM) [facility] YJACV6244-78-95 15:57:000.2[facility] KENGG3700-31-78 15:57:00Small *ABN*(01/23/16 9:57 AM)[facility]annBLOOD BANK FVGPFCO0164-00-45 15:57:00Negative (01/23/16 9:57 AM)[facility]annCHEM PANEL 2016-01-23 15:57:003.6[facility]annCHEM OXRZV7409-51-35 15:57:0015[facility]annCHEM GZMRK7250-49-35 15:57:000.9[facility]annCHEM VNVMS1979-59-48 15:57:0010.7[facility]annCHEM IGYPF9773-54-76 15:57:0068[facility]annCHEM QGSKC8772-92-41 15:57:006.7[facility]annCHEM TUHZN6326-67-22 15:57:23509 [facility]CHE[facility] FSDSK0165-86-61 15:57:0031[facility]annCHEM PANEL 2016-01-23 15:57:009.0[facility]annCHEM YBCDZ9781-93-99 15:57:0044[facility]annCHEM JYSPW1303-54-03 15:57:003.1[facility]annCHEM EUQMW5773-23-61 15:57:0025[facility]annCHEM WBNYV7492-64-56 15:57:000.6[facility]annCHEM LJQQF5321-73-29 15:57:66981Cocdovct HermannCHEM POUDZ8822-16-60 15:57:0017 [facility]annCHE[facility] USXAP9944-33-13 15:57:70019Texwtoyr HermannCHEM PANEL 2016-01-23 15:57:001.13[facility]annCHEM CSNGV9179-46-12 15:57:07562Hmdzozau HermannCHEM TCPVY1936-28-57 15:57:004.7[facility] OyyorwqTGEJVJZRTG6685-88-14 15:57:00 Test Item Value Reference Range Interpretation Comments aPTT (test code = aPTT) 33.8 s 22.9-35.8 [facility] IlluotkCWUDAKKLJM1388-08-15 15:57:00 Test Item Value Reference Range Interpretation Comments PROTIME (test code = PROTIME) 13.8 s 12.0-14.7 [facility] BnwlxpfOSHSGTGMIL9741-34-15 15:57:001.03[facility] HermannHEMATOLOGY 2016-01-23 15:57:0015[facility] BxbjwvqQVKNYNNGST8475-42-96 15:57:0049.4[facility] AND CTGDW4060-42-67 15:57:00None Seen (01/23/16 9:57 AM)[facility] IRAQH0780-24-92 15:57:00Clear (01/23/16 9:57 AM)[facility] JYEUO1692-29-13 15:57:00Yellow *NA*(01/23/16 9:57 AM)[facility]INE AND AGTRE1567-18-59 15:57:00Negative (01/23/16 9:57 AM)[facility]INE AND [id number] 15:57:00 Test Item Value Reference Range Interpretation Comments UA pH (test code = UA pH) 5.5 1 5.0-8.0 [facility] [id number] 15:57:00 Test Item Value Reference Range Interpretation Comments UA Spec Grav (test code = UA Spec 1.015 1 Grav) [facility] [id number] 15:57:00Negative *NA*(01/23/16 9:57 AM) [facility] YYXQB9994-74-68 15:57:00Negative *NA*(01/23/16 9:57 AM) [facility] TNFOO8738-89-89 15:57:00Negative (01/23/16 9:57 AM) [facility] NJYFN8886-86-06 15:57:00Negative (01/23/16 9:57 AM) [facility] LKKCD5023-94-36 15:57:00Negative (01/23/16 9:57 AM) [facility] TWSWG7439-07-50 15:57:000.2[facility] QOXHD9036-28-96 15:57:00Small *ABN*(01/23/16 9:57 AM)[facility]
--- NOTE | 2021-03-30 10:27 | RAD REPORT ---
EXAM DESCRIPTION: USExtremity Venous Uni Ltd03/30/2021 10:19 am CLINICAL HISTORY: Right leg pain and swelling. COMPARISON: None. FINDINGS: Right common femoral, superficial femoral, popliteal and right posterior tibial veins are compressible and demonstrate augmentation. Doppler demonstrates good flow. IMPRESSION: No evidence of deep venous thrombosis involving the right lower extremity.
[2021-03-30] MEDS ORDERED: SMZ./TMP. 800/160 MG TABLET ONE (11:09)
[2021-03-30] MEDS ORDERED: CEPHALEXIN 250 MG CAP ONE (11:09)
[2021-03-30 11:14] LABS: Absolute Lymphocytes (CBC) 1.4 K/uL (0.7-4.9); Basophils % 0.5 % (0-1.3); Hematocrit 52.1 % (39.6-49.0); Lymphocytes % 10.2 % (15.3-44.8); MPV 9.5 fL (7.6-11.3); RBC Red Blood Cell Count 5.65 M/uL (4.33-5.43)
[2021-03-30 11:16] LABS: Potassium 3.8 mmol/L (3.5-5.1)
--- NOTE | 2021-03-30 11:35 | EDPHYS ---
Physician Documentation [facility] Name: Matteo Hernandez Age: 70 yrs Sex: Male : 1950 Arrival Date: 03/30/2021 Time: 09:10 Bed 2 Private MD: ED Physician Trevon Good HPI: 03/30 11:33 This 70 yrs old Male presents to ER via Ambulatory with complaints of Leg kb Pain. 11:33 The patient presents with cellulitis of the right lower leg. Description: erythematous, kb swollen, warm. Onset: The symptoms/episode began/occurred 7 day(s) ago. Possible cause(s): unknown. Associated signs and symptoms: Pertinent positives: erythema, swelling, Pertinent negatives: discharge, drainage, foreign body sensation, fever, headache, nausea, shortness of breath, vomiting. Modifying factors: the symptoms are alleviated by nothing, the symptoms are aggravated by nothing. Severity of symptoms: At their worst the symptoms were moderate, in the emergency department the symptoms are unchanged. The patient has experienced a previous episode. The patient has not recently seen a physician. Pt reports redness, swelling and warmth to right lower leg for 7 days. States he had some chills last night so that prompted him to come to the ER. Historical: - Allergies: 09:16 No Known Allergies; sv - PMHx: 09:16 Hypertension; sv - PSHx: 09:16 Hernia repair; heart bypass; karl hip replacement; knee sx; sv - Immunization history:: Client reports receiving the 2nd dose of the Covid vaccine, Client reports receiving the 1st dose of the Covid vaccine. - Social history:: Smoking status: Patient reports the use of cigarette tobacco products, cigars. ROS: 11:31 MS/Extremity: Negative for injury and deformity. kb 11:31 Constitutional: Positive for chills. 11:31 Skin: Positive for cellulitis, of the right lower leg. 11:32 All other systems are negative. kb Exam: 11:32 Constitutional: This is a well developed, well nourished patient who is awake, alert, kb and in no acute distress. ENT: Moist Mucous membranes Cardiovascular: Regular rate and rhythm with a normal S1 and S2. No gallops, murmurs, or rubs. No pulse deficits. Respiratory: Respirations even and unlabored. No increased work of breathing, no retractions or nasal flaring. Abdomen/GI: Soft, non-tender. No distention MS/ Extremity: Pulses equal, no cyanosis. Neurovascular intact. Full, normal range of motion. Neuro: Awake and alert, GCS 15, oriented to person, place, time, and situation. Moves all extremities. Normal gait. Psych: Awake, alert, with orientation to person, place and time. Behavior, mood, and affect are within normal limits. 11:32 Skin: cellulitis, that is moderate, on the right lower leg. Vital Signs: 09:16 BP 119 / 63; Pulse 76; Resp 20; Temp 97.8; Pulse Ox 97% ; Weight 89.81 kg; Height 5 ft. sv 10 in. (177.80 cm); Pain 4/10; 10:55 BP 114 / 56; Pulse 75; Resp 17; Pulse Ox 97% ; jl7 09:16 Body Mass Index 28.41 (89.81 kg, 177.80 cm) sv MDM: 09:54 Patient medically screened. kb 11:28 Data reviewed: vital signs, nurses notes. Data reviewed: lab test result(s), radiologic kb studies. Data interpreted: Pulse oximetry: on room air is 97 %. Interpretation: normal. Counseling: I had a detailed discussion with the patient and/or guardian regarding: the historical points, exam findings, and any diagnostic results supporting the discharge/admit diagnosis, lab results, radiology results, the need for outpatient follow up, a family practitioner, to return to the emergency department if symptoms worsen or persist or if there are any questions or concerns that arise at home. 03/30 10: Order name: CBC with Diff; Complete Time: 11:28 kb 03/30 10:29 Order name: Basic Metabolic Panel; Complete Time: 11:28 kb 03/30 09:32 Order name: US Extremity Venous Unilateral Ltd; Complete Time: 10:29 kb 03/30 10:29 Order name: Blood Culture Adult (2) kb Administered Medications: 10:54 Drug: Bactrim (trimethoprim-sulfamethoxazole) (160 mg-800 mg (DS) 1 tablet Route: PO; jl7 11:42 Follow up: Response: No adverse reaction jl7 10:55 Drug: KeFLEX (cephalexin) 500 mg Route: PO; jl7 11:42 Follow up: Response: No adverse reaction jl7 Disposition: 18:40 Co-signature as Attending Physician, Trevon Good MD. ma2 Disposition: 03/30/21 11:34 Discharged to Home. Impression: Cellulitis of right lower limb. - Condition is Stable. - Discharge Instructions: Cellulitis, Adult, Oevp-gv-Zsfl. - Prescriptions for Keflex 500 mg Oral Capsule - take 1 capsule by ORAL route every 8 hours for 10 days; 30 capsule. Bactrim DS 800- 160 mg Oral Tablet - take 1 tablet by ORAL route every 12 hours for 10 days; 20 tablet. - Medication Reconciliation Form, Thank You Letter, Antibiotic Education, Prescription Opioid Use form. - Follow up: Emergency Department; When: As needed; Reason: Worsening of condition. Follow up: Private Physician; When: 2 - 3 days; Reason: Recheck today's complaints, Continuance of care, Re-evaluation by your physician. Signatures: Dispatcher [employer] EDME Concepcion Deleon, CELSO ZULETA-Inna Darnell RN RN sv Leal, Jahala, RN RN jl7 Trevon Good MD MD de2 Corrections: (The following items were deleted from the chart) 11:42 11:34 03/30/2021 11:34 Discharged to Home. Impression: Cellulitis of right lower limb. jl7 Condition is Stable. Forms are Medication Reconciliation Form, Thank You Letter, Antibiotic Education, Prescription Opioid Use. Follow up: Emergency Department; When: As needed; Reason: Worsening of condition. Follow up: Private Physician; When: 2 - 3 days; Reason: Recheck today's complaints, Continuance of care, Re-evaluation by your physician. kb
--- NOTE | 2021-03-30 11:35 | ER ---
Nurse's Notes [facility] Name: Matteo Hernandez Age: 70 yrs Sex: Male : 1950 Arrival Date: 03/30/2021 Time: 09:10 Bed 2 Private MD: Diagnosis: Cellulitis of right lower limb Presentation: 03/30 09:14 Chief complaint: Patient states: RLE swelling, redness, tenderness, nausea since last sv night. Reports he thought he got bit by a snake last Tuesday but has no punture blackmon. Unknown type. 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 Coronavirus screen: Client denies travel out of the [place] in the last 14 days. Ebola Screen: No symptoms or risks identified at this time. Risk Assessment: Do you want to hurt yourself or someone else? Patient reports no desire to harm self or others. Onset of symptoms was March 24, 2021. 09:14 Method Of Arrival: Ambulatory sv 09:14 Acuity: JOHNNY 3 sv 09:16 Initial Sepsis Screen: Does the patient meet any 2 criteria? No. Patient's initial sv sepsis screen is negative. Does the patient have a suspected source of infection? No. Patient's initial sepsis screen is negative. Triage Assessment: 09:14 General: Appears in no apparent distress. uncomfortable, Behavior is calm, cooperative, sv appropriate for age. Pain: Complains of pain in right leg Pain currently is 4 out of 10 on a pain scale. Neuro: Level of Consciousness is awake, alert, obeys commands, Oriented to person, place, time, situation, Gait is steady. Respiratory: Respiratory effort is even, unlabored. Historical: - Allergies: 09:16 No Known Allergies; sv - PMHx: 09:16 Hypertension; sv - PSHx: 09:16 Hernia repair; heart bypass; karl hip replacement; knee sx; sv - Immunization history:: Client reports receiving the 2nd dose of the Covid vaccine, Client reports receiving the 1st dose of the Covid vaccine. - Social history:: Smoking status: Patient reports the use of cigarette tobacco products, cigars. Screenin:55 Abuse screen: Denies threats or abuse. Denies injuries from another. Nutritional jl7 screening: No deficits noted. Tuberculosis screening: No symptoms or risk factors identified. Fall Risk IV access (20 points). Total Figueroa Fall Scale indicates No Risk (0-24 pts). Assessment: 09:55 Reassessment: Pt currently in US. sv 10:55 General: Appears in no apparent distress. uncomfortable, Behavior is calm, cooperative, jl7 appropriate for age. Pain: Complains of pain in right leg Pain currently is 4 out of 10 on a pain scale. Neuro: Level of Consciousness is awake, alert, obeys commands, Oriented to person, place, time, situation. Cardiovascular: Patient's skin is warm and dry. Respiratory: Airway is patent Respiratory effort is even, unlabored, Respiratory pattern is regular, symmetrical. Derm: Skin is pink, warm \T\ dry. Right lower extremity noted to be red, minor swelling and warm. 11:32 Reassessment: ERP at bedside discussing results and POC. jl7 Vital Signs: 09:16 BP 119 / 63; Pulse 76; Resp 20; Temp 97.8; Pulse Ox 97% ; Weight 89.81 kg; Height 5 ft. sv 10 in. (177.80 cm); Pain 4/10; 10:55 BP 114 / 56; Pulse 75; Resp 17; Pulse Ox 97% ; jl7 09:16 Body Mass Index 28.41 (89.81 kg, 177.80 cm) sv ED Course: 09:10 Patient arrived in ED. mr 09:14 Arm band placed on. sv 09:16 Triage completed. sv 09:32 Concepcion Deleon FNP-C is PHCP. kb 09:32 Trevon Good MD is Attending Physician. kb 10:00 Amaya Adams RN is Primary Nurse. jl7 10:19 US Extremity Venous Unilateral Ltd In Process Unspecified. EDMS 10:40 Initial lab(s) drawn, by wi, sent to lab. Inserted saline lock: 20 gauge in right em1 forearm, using aseptic technique. Blood collected. 10:40 First set of blood cultures drawn. em1 10:55 Patient has correct armband on for positive identification. Placed in gown. Bed in low jl7 position. Call light in reach. Side rails up X 1. Pulse ox on. NIBP on. 11:10 Second set of blood cultures drawn. em1 11:41 No provider procedures requiring assistance completed. IV discontinued, intact, jl7 bleeding controlled, No redness/swelling at site. Pressure dressing applied. Administered Medications: 10:54 Drug: Bactrim (trimethoprim-sulfamethoxazole) (160 mg-800 mg (DS) 1 tablet Route: PO; jl7 11:42 Follow up: Response: No adverse reaction jl7 10:55 Drug: KeFLEX (cephalexin) 500 mg Route: PO; jl7 11:42 Follow up: Response: No adverse reaction jl7 Outcome: 11:34 Discharge ordered by . jhoana 11:41 Discharged to home ambulatory. jl7 11:41 Condition: stable 11:41 Discharge instructions given to patient, Instructed on discharge instructions, follow up and referral plans. medication usage, Demonstrated understanding of instructions, follow-up care, medications, Prescriptions given X 2. 11:42 Patient left the ED. jl7 Signatures: Dispatcher [employer] EDMS Concepcion Deleon, MERLYN-C PROOFER PREPRESS-Inna Darnell, RN RN Hood, Shilpa mr Wilmer, Mark em1 Amaya Adams, RN RN jl7 Corrections: (The following items were deleted from the chart) 09:19 09:14 Chief complaint: Patient states: RLE swelling, redness, tenderness, nausea since sv last night. Reports he thought he got bit by a snake last Tuesday but has no punture blackmon. Unknown type sv
[2021-03-30 11:50] VITALS: TEMP 97.8; O2SAT 97
[2021-03-30 11:51] VITALS: BP 114/56
== END 2021-03-30 11:42 | disposition home or self-care (01) ==
LOC: ER 09:03
DX: L03.115 Cellulitis of right lower limb (principal); F17.210 Nicotine dependence, cigarettes, uncomplicated; I10 Essential (primary) hypertension; Z95.1 Presence of aortocoronary bypass graft; Z96.643 Presence of artificial hip joint, bilateral
CPT/HCPCS: 36415; 80048; 85025; 87040; 87205; 93971; 99284

== ENCOUNTER 2022-11-19 21:14 | Inpatient (IN) | payer OTHER, MEDICARE ==
--- OUTSIDE RECORDS SUMMARY | 2022-11-19 21:20 | XMS REPORT | Continuity of Care Document ---
:1950 Author Organization [facility] t Address [facility] [place] [address] Care Team Providers Name Role Phone Ryley Dodson MD Primary Care Physician ELLIOTT JC Attending Clinician Unavailable Patt Dawn Attending Clinician Unavailable Ryley Dodson Attending Clinician TOR MARRERO Attending Clinician Unavailable ANGELLA SMILEY Attending Clinician Unavailable MD ANGELLA SMILEY Attending Clinician Unavailable KATHIA PRESSLEY Attending Clinician Unavailable ELLIOTT JC Attending Clinician Unavailable Hu Driver Attending Clinician Unavailable ELLIOTT JC Admitting Clinician Unavailable Ryley Dodson Admitting Clinician Unavailable Ryley Dodson Admitting Clinician ANGELLA SMILEY Admitting Clinician Unavailable MD ANGELLA SMILEY Admitting Clinician Unavailable Hu Driver Admitting Clinician Unavailable Payers Payer Name Policy Type Policy Number Effective Date Expiration Date S uriel UNITED MEDICARE [id number] 2019 O 00:00:00 Problems Condition Condition Condition Status Onset Resolution Last Treating Co mments Source Name Details Category Date Date Treatment Clinician Date Nondisplac Nondisplac Disease Active Overview : Methodi ed ed 5-[address] fracture fracture 00:00: g of this Hos leslie of distal of distal 00 note l phalanx of phalanx of might be right right different thumb, thumb, from the initial initial original. encounter encounter Added for open for open automatic fracture fracture ally from request for surgery [id number] Laceration Laceration Disease Active Overview : Methodi of right of right 5-[address] thumb thumb 00:00: g of this Hospita without without 00 note l foreign foreign might be body with body with different damage to damage to from the nail nail original. Added automatic ally from request for surgery [id number] Screening Screening Disease Active Met hodi for colon for colon 3-26 st cancer cancer 00:00: Hospita 00 l Benign Benign Problem Active 2021-02-28 Jose jarrett hypertensi hypertensi 04:10:52 l ve heart ve heart Ernesto n disease disease without without congestive congestive heart heart failure failure Active Problem 02/28/2021 eCW: [facility] Practice Benign Benign Problem Active 2021-02-28 Jose jarrett hypertensi hypertensi 04:10:52 l ve heart ve heart Ernesto n disease disease without without congestive congestive heart heart failure failure Active Problem 02/28/2021 eCW: [facility] Practice Benign Benign Problem Active 2021-02-28 Jose jarrett hypertensi hypertensi 04:10:52 l ve heart ve heart Ernesto n disease disease without without congestive congestive heart heart failure failure Active Problem 02/28/2021 eCW: [facility] Practice Impaired Impaired Problem Active 2021-02-28 Memoria fasting fasting 04:10:52 l glucose glucose [place] Active Problem 02/28/2021 eCW: [facility] Practice Impaired Impaired Problem Active 2021-02-28 Memoria fasting fasting 04:10:52 l glucose glucose Kevin Active Problem 02/28/2021 eCW: [facility] Practice Impaired Impaired Problem Active 2021-02-28 Memoria fasting fasting 04:10:52 l glucose glucose [place] Active Problem 02/28/2021 eCW: [facility] Practice Restless Restless Problem Active 2021-02-28 Memoria legs legs 04:10:52 l syndrome syndrome Ernesto n Active Problem 02/28/2021 eCW: [facility] Practice Restless Restless Problem Active 2021-02-28 Memoria legs legs 04:10:52 l syndrome syndrome Ernesto n Active Problem 02/28/2021 eCW: [facility] Restless Restless Problem Active 2021-02-28 Memoria legs legs 04:10:52 l syndrome syndrome Ernesto n Active Problem 02/28/2021 eCW: [facility] Pure Pure Problem Active 2021-02-28 Memor ia hyperchole hyperchole 04:10:52 l sterolemia sterolemia He rmann Active Problem 02/28/2021 eCW: [facility] Pure Pure Problem Active 2021-02-28 Memor ia hyperchole hyperchole 04:10:52 l sterolemia sterolemia He rmann Active Problem 02/28/2021 eCW: [facility] Pure Pure Problem Active 2021-02-28 Memor ia hyperchole hyperchole 04:10:52 l sterolemia sterolemia He rmann Active Problem 02/28/2021 eCW: [facility] Hx of Hx of Problem Active 2021-02-28 Memor ia colonic colonic 04:10:52 l polyps polyps Kevin Active Problem 02/28/2021 eCW: [facility] Hx of Hx of Problem Active 2021-02-28 Memor ia colonic colonic 04:10:52 l polyps polyps [place] Active Problem 02/28/2021 eCW: [facility] Hx of Hx of Problem Active 2021-02-28 Memor ia colonic colonic 04:10:52 l polyps polyps [place] Active Problem 02/28/2021 eCW: [facility] Low back Low back Problem Active 2021-02-28 Memoria pain pain 04:10:52 l Active [place] Problem 02/28/2021 eCW: [facility] Low back Low back Problem Active 2021-02-28 Memoria pain pain 04:10:52 l Active Kevin Problem 02/28/2021 eCW: [facility] Low back Low back Problem Active 2021-02-28 Memoria pain pain 04:10:52 l Active [place] Problem 02/28/2021 eCW: [facility] Coronary Coronary Problem Active 2021-02-28 Memoria atheroscle atheroscle 04:10:52 l rosis of rosis of Ernesto n [place]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 artery Active Problem 02/28/2021 eCW: [facility] Coronary Coronary Problem Active 2021-02-28 Memoria atheroscle atheroscle 04:10:52 l rosis of rosis of Ernesto n [place]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 artery Active Problem 02/28/2021 eCW: [facility] Practice Coronary Coronary Problem Active 2021-02-28 Memoria atheroscle atheroscle 04:10:52 l rosis of rosis of Ernesto n [place]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 artery Active Problem 02/28/2021 eCW: [facility] Practice Tobacco Tobacco Problem Active 2021-02-28 Me moria use use 04:10:52 l disorder disorder Ernesto n Active Problem 02/28/2021 eCW: [facility] Tobacco Tobacco Problem Active 2021-02-28 Me moria use use 04:10:52 l disorder disorder Ernesto n Active Problem 02/28/2021 eCW: [facility] Practice Tobacco Tobacco Problem Active 2021-02-28 Me moria use use 04:10:52 l disorder disorder Ernesto n Active Problem 02/28/2021 eCW: [facility] Disorder Disorder Problem Active 2021-02-28 Memoria of of 04:10:52 l prostate prostate Ernesto n Active Problem 02/28/2021 eCW: [facility] Disorder Disorder Problem Active 2021-02-28 Memoria of of 04:10:52 l prostate prostate Ernesto n Active Problem 02/28/2021 eCW: [facility] Disorder Disorder Problem Active 2021-02-28 Memoria of of 04:10:52 l prostate prostate Ernesto n Active Problem 02/28/2021 eCW: [facility] BMI BMI Diagnosis Active 2020-02-17 Mem oria 27.0-27.9, 27.0-27.9, 04:10:51 l adult adult [place] Active Diagnosis 02/17/2020 eCW: [facility] BMI BMI Diagnosis Active 2020-02-17 Mem oria 27.0-27.9, 27.0-27.9, 04:10:51 l adult adult [place] Active Diagnosis 02/17/2020 eCW: [facility] BMI BMI Diagnosis Active 2020-02-17 Mem oria 27.0-27.9, 27.0-27.9, 04:10:51 l adult adult [place] Active Diagnosis 02/17/2020 eCW: [facility] Screening Screening Diagnosis Active 2020-02-17 Memoria for skin for skin 04:10:51 l cancer cancer Kevin Active Diagnosis 02/17/2020 eCW: [facility] Screening Screening Diagnosis Active 2020-02-17 Memoria for skin for skin 04:10:51 l cancer cancer Kevin Active Diagnosis 02/17/2020 eCW: [facility] Screening Screening Diagnosis Active 2020-02-17 Memoria for skin for skin 04:10:51 l cancer cancer [place] Active Diagnosis 02/17/2020 eCW: [facility] Encounter Encounter Diagnosis Active 2020-02-17 Memoria for for 04:10:51 l screening, screening, He rmann unspecifie unspecifie d d Active Diagnosis 02/17/2020 eCW: [facility] Encounter Diagnosis Active 2020-02-17 Memoria for Encounter 04:10:51 l screening, for Ernesto n unspecifie screening, d unspecifie d Active Diagnosis 02/17/2020 eCW: [facility] Encounter Encounter Diagnosis Active 2020-02-17 Memoria for for 04:10:51 l screening, screening, He rmann unspecifie unspecifie d d Active Diagnosis 02/17/2020 eCW: [facility] Screen for Screen Diagnosis Active 2020-02-17 Memoria colon for colon 04:10:51 l cancer cancer [place] Active Diagnosis 02/17/2020 eCW: [facility] Screen for Screen Diagnosis Active 2020-02-17 Memoria colon for colon 04:10:51 l cancer cancer Kevin Active Diagnosis 02/17/2020 eCW: [facility] Screen for Screen Diagnosis Active 2020-02-17 Memoria colon for colon 04:10:51 l cancer cancer Kevin Active Diagnosis 02/17/2020 eCW: [facility] BMI BMI Problem Active 2019-10-06 Memor ia 33.0-33.9, 33.0-33.9, 05:10:18 l adult adult Kevin Active Problem 10/06/2019 eCW: [facility] BMI BMI Problem Active 2019-10-06 Memor ia 33.0-33.9, 33.0-33.9, 05:10:18 l adult adult Kevin Active Problem 10/06/2019 eCW: [facility] BMI BMI Problem Active 2019-10-06 Memor ia 33.0-33.9, 33.0-33.9, 05:10:18 l adult adult Kevin Active Problem 10/06/2019 eCW: [facility] BMI BMI Diagnosis Active 2020-03-22 Mem oria 28.0-28.9, 28.0-28.9, 04:15:35 l adult adult [place] Active Diagnosis 03/22/2020 eCW: [facility] BMI BMI Diagnosis Active 2020-03-22 Mem oria 28.0-28.9, 28.0-28.9, 04:15:35 l adult adult Kevin Active Diagnosis 03/22/2020 eCW: [facility] BMI BMI Diagnosis Active 2020-03-22 Mem oria 28.0-28.9, 28.0-28.9, 04:15:35 l adult adult Kevin Active Diagnosis 03/22/2020 eCW: [facility] Laceration Laceratio Diagnosis Active 2020-04-04 Memoria of right n of right 04:14:40 l thumb thumb Kevin without without foreign foreign body with body with damage to damage to nail, nail, initial initial encounter encounter Active Diagnosis 04/04/2020 eCW: [facility] Laceration Laceratio Diagnosis Active 2020-04-04 Memoria of right n of right 04:14:40 l thumb thumb Kevin without without foreign foreign body with body with damage to damage to nail, nail, initial initial encounter encounter Active Diagnosis 04/04/2020 eCW: [facility] Laceration Laceratio Diagnosis Active 2020-04-04 Memoria of right n of right 04:14:40 l thumb thumb Kevin without without foreign foreign body with body with damage to damage to nail, nail, initial initial encounter encounter Active Diagnosis 04/04/2020 eCW: [facility] Dermatitis Dermatiti Diagnosis Active 2019-05-29 Memoria s Active 04:12:11 l Diagnosis [place] 05/29/2019 eCW: [facility] Dermatitis Dermatiti Diagnosis Active 2019-05-29 Memoria s Active 04:12:11 l Diagnosis [place] 05/29/2019 eCW: [facility] Dermatitis Diagnosis Active 2019-05-29 Memoria Dermatitis 04:12:11 l Active [place] Diagnosis 05/29/2019 eCW: [facility] Encounter Encounter Diagnosis Active 2019-05-29 Memoria for for 04:12:11 l general [facility] adult adult medical medical examinatio examinatio n with n with abnormal abnormal findings findings Active Diagnosis 05/29/2019 eCW: [facility] Encounter Encounter Diagnosis Active 2019-05-29 Memoria for for 04:12:11 l general [facility] adult adult medical medical examinatio examinatio n with n with abnormal abnormal findings findings Active Diagnosis 05/29/2019 eCW: [facility] Encounter Encounter Diagnosis Active 2019-05-29 Memoria for for 04:12:11 l general [facility] adult adult medical medical examinatio examinatio n with n with abnormal abnormal findings findings Active Diagnosis 05/29/2019 eCW: [facility] Essential Essential Problem 2018-11-01 Memoria (primary) (primary) 05:01:37 l hypertensi hypertensi He rmann on on 11/01/2018 [facility] Pleural Pleural Problem 2022-11-12 Me moria effusion, effusion, 08:04:27 l not not [place] elsewhere elsewhere classified classified 11/12/2022 [facility] Allergies, Adverse Reactions, Alerts Allergy Allergy Status Severity Reaction(s) Onset Inactive Treating Comm ents Source Name Type Date Date Clinician TRAMADOL Allergy Active N\T\V 2020-[address] [facility] Tramadol Propensi Active GI 2020-0 Method i ty to Intolerance 04-09 st adverse 00:00: Hospita reaction 00 l s to drug tramadol tramadol Active stomach 2020-0 Memor ia upset 5-08 l 00:00: tramadol tramadol Active stomach 2020-0 Memor ia upset 5-08 l 00:00: cholmiac cholmiac Active swelling 2020-0 Jose jarrett in? ear in? ear 5-08 l drops drops 00:00: cholmiac cholmiac Active swelling 2020-0 Jose jarrett in? ear in? ear 5-08 l drops drops 00:00: NO KNOWN Allergy Active [facility] Family History Family Member Diagnosis Comments Start Date Stop Date Source Natural mother Cancer [facility] Social History Social Habit Start Date Stop Date Quantity Comments Source History of tobacco Cigar Smoker Meth odist use Hospital History SDOH [facility] Alcohol Frequency Medical Center History SDOH [facility] Alcohol Std Drinks [facility] History SDOH [facility] Alcohol Binge Medical [facility] Alcohol intake 2020-04-25 2020-04-25 Current drinker NANDO [facility]leman [facility] (finding) Alcohol Comment 2020-04-22 2020-04-[address] [facility] 00:[facility]00 00:00:00 [facility] Center Tobacco use and 2020-04-22 2020-04-[address] [facility] exposure 00:00:00 00:00:00 [facility] Center Tobacco Comment 2020-04-22 2020-04-22 cigar/day [facility] 00:[facility]00 00:00:00 [facility] Cigarettes smoked 2020-04-09 2020-04-[address] current (pack per 00:00:00 00[facility]00:[facility] - Reported Cigarette 2020-04-09 2020-04-09 [facility] pack-years 00:00:00 00:00:00 [facility] [birth year] [facility] Center Smoking Status Start Date Stop Date Source Current every day smoker 2020-04-22 00:00:00 [facility] Medications Ordered Filled Start Stop Current Ordering Indication Dosage Frequency Signature Comments Components Source Medication Medication Date Date Medication? Clinician (SIG) Name Name Gabapentin Yes Iveth 2 TABS M emoria 4-17 Yenni l 04:10: Kevin 52 Gabapentin Yes Iveth 2 TABS M emoria 4-17 Yenni l 04:10: [place] [address] Gabapentin Yes Iveth 2 TABS M emoria 4-17 Yenni l 04:10: [place] [address] ubidecareno Yes Take by [facility] ne (COQ-10 6-12 mouth. [facility] ORAL) 09:34: Medical [address] [place] [address] docosahexae Yes Take by [facility] St noic 6-12 mouth. [facility] acid/epa 09:34: Medical (FISH OIL 57 Center ORAL) furosemide Yes 20mg Q.5D Take [address] (LASIX) 20 6-12 by mouth 2 Althea es MG tablet 09:34: (two) Medical 57 times Center daily. gabapentin 2020-0 Yes 100mg Q.[id number] Take [address] (NEURONTIN) 6-12 [id number] mg by L ukes 100 MG 09:34: 3D mouth 3 Medical capsule 57 (three) Center times daily. HYDROcodone 2020-0 Yes 1{tbl} Take [address] -acetaminop 6-12 tablet by Althea es hen (NORCO 09:34: mouth Medica l 10-325) 57 every 6 Center 10-325 mg (six) per tablet hours as needed for Pain. multivitami 2020-0 Yes 1{capsu QD Take [address] n capsule 6-12 le} capsule by Luke s 09:34: mouth Medical 57 daily. [place] aspirin 325 2020-0 Yes 325mg QD Take [address] MG tablet 6-12 mg by [facility] 09:34: mouth Medical 57 daily. [place] atorvastati 2020-0 Yes 40mg QD Take [address] n (LIPITOR) 6-12 by mouth Luke s 40 MG 09:34: daily. Medical tablet 57 Center bisoprolol 2020-0 Yes 10mg QD Take [address] (ZEBETA) 10 6-12 by mouth Luke s MG tablet 09:34: daily. Medica l 57 Center ramipriL 2020-0 Yes 10mg QD Take [address] (ALTACE) 10 6-12 by mouth Luke s MG capsule 09:34: daily. Medic al 57 Center rOPINIRole 2020-0 Yes 2mg QD Take [address] (REQUIP) 2 6-12 by mouth [facility]ukes MG tablet 09:34: nightly. Medi nicholas 57 Center ascorbic 2020-0 Yes Take by [facility] acid 6-12 mouth. [facility] (VITAMIN C 09:34: Medical ORAL) 57 Center b complex 2020-0 Yes 1{capsu QD Take [address] vitamins 6-12 le} capsule by [facility] capsule 09:34: mouth Medical 57 daily. [place] ubidecareno 2020-0 Yes Take by [facility] ne (COQ-10 6-12 mouth. [facility] ORAL) 09:34: Medical 57 Center docosahexae 2020-0 Yes Take by [facility] noic 6-12 mouth. [facility] acid/epa 09:34: Medical (FISH OIL 57 Center ORAL) furosemide 2020-0 Yes 20mg Q.5D Take [address] (LASIX) 20 6-12 by mouth 2 Althea es MG tablet 09:34: (two) Medical 57 times Center daily. gabapentin 2020-0 Yes 100mg Q.[id number] Take [address] (NEURONTIN) 6-12 [id number] mg by L ukes 100 MG 09:34: 3D mouth 3 Medical capsule 57 (three) Center times daily. HYDROcodone 2020-0 Yes 1{tbl} Take [address] -acetaminop 6-12 tablet by Althea es hen (NORCO 09:34: mouth Medica l 10-325) 57 every 6 Center 10-325 mg (six) per tablet hours as needed for Pain. multivitami 2020-0 Yes 1{capsu QD Take [address] n capsule 6-12 le} capsule by Luke s 09:34: mouth Medical 57 daily. [place] aspirin 325 2020-0 Yes 325mg QD Take [address] MG tablet 6-12 mg by [facility] 09:34: mouth Medical 57 daily. [place] atorvastati 2020-0 Yes 40mg QD Take [address] n (LIPITOR) 6-12 by mouth Luke s 40 MG 09:34: daily. Medical tablet 57 Center bisoprolol 2020-0 Yes 10mg QD Take [address] (ZEBETA) 10 6-12 by mouth Luke s MG tablet 09:34: daily. Medica l 57 Center ramipriL 2020-0 Yes 10mg QD Take [address] (ALTACE) 10 6-12 by mouth Luke s MG capsule 09:34: daily. Medic al 57 Center rOPINIRole 2020-0 Yes 2mg QD Take [address] (REQUIP) 2 6-12 by mouth [facility]ukes MG tablet 09:34: nightly. Medi nicholas 57 Center ascorbic 2020-0 Yes Take by [facility] acid 6-12 mouth. [facility] (VITAMIN C 09:34: Medical ORAL) 57 Center b complex 2020-0 Yes 1{capsu QD Take [address] vitamins 6-12 le} capsule by [facility] capsule 09:34: mouth Medical 57 daily. [place] ubidecareno 2020-0 Yes Take by [facility] ne (COQ-10 6-12 mouth. [facility] ORAL) 09:34: Medical 57 Center docosahexae 2020-0 Yes Take by [facility] noic 6-12 mouth. [facility] acid/epa 09:34: Medical (FISH OIL 57 Center ORAL) furosemide 2020-0 Yes 20mg Q.5D Take [address] (LASIX) 20 6-12 by mouth 2 Althea es MG tablet 09:34: (two) Medical 57 times Center daily. gabapentin 2020-0 Yes 100mg Q.[id number] Take [address] (NEURONTIN) 6-12 [id number] mg by L ukes 100 MG 09:34: 3D mouth 3 Medical capsule 57 (three) Center times daily. HYDROcodone 2020-0 Yes 1{tbl} Take [address] -acetaminop 6-12 tablet by Althea es hen (NORCO 09:34: mouth Medica l 10-325) 57 every 6 Center 10-325 mg (six) per tablet hours as needed for Pain. multivitami 2020-0 Yes 1{capsu QD Take [address] n capsule 6-12 le} capsule by Luke s 09:34: mouth Medical 57 daily. [place] aspirin 325 2020-0 Yes 325mg QD Take [address] MG tablet 6-12 mg by [facility] 09:34: mouth Medical 57 daily. [place] atorvastati 2020-0 Yes 40mg QD Take [address] n (LIPITOR) 6-12 by mouth Luke s 40 MG 09:34: daily. Medical tablet 57 Center bisoprolol 2020-0 Yes 10mg QD Take [address] (ZEBETA) 10 6-12 by mouth Luke s MG tablet 09:34: daily. Medica l 57 Center ramipriL 2020-0 Yes 10mg QD Take [address] (ALTACE) 10 6-12 by mouth Luke s MG capsule 09:34: daily. Medic al 57 Center rOPINIRole 2020-0 Yes 2mg QD Take [address] (REQUIP) 2 6-12 by mouth [facility] MG tablet 09:34: nightly. Medi nicholas 57 Center ascorbic 2020-0 Yes Take by [facility] acid 6-12 mouth. [facility] (VITAMIN C 09:34: Medical ORAL) 57 Center b complex 2020-0 Yes 1{capsu QD Take [address] vitamins 6-12 le} capsule by [facility] capsule 09:34: mouth Medical 57 daily. [place] aspirin 325 2020-0 Yes 325mg QD Take 325 M ethodi MG tablet 5-[address] 15:48: mouth Hospita 50 daily. l atorvastati 2020-0 Yes 40mg QD Take 40 mg Methodi n (LIPITOR) 5-[address] 40 MG 15:48: daily. Hospita tablet 50 l bisoprolol 2020-0 Yes 10mg QD Take 10 mg M ethodi (ZEBETA) 10 -[address] MG tablet 15:48: daily. Hospit a 50 l rOPINIRole 2020-0 Yes 2mg QD Take 2 mg Me thodi (REQUIP) 2 -[address] MG tablet 15:48: nightly. Hosp michael 50 l ramipriL 2020-0 Yes 10mg QD Take 10 mg Met hodi (ALTACE) 10 - by mouth st MG capsule 15:48: daily. Hospi ta 50 l gabapentin 2020-0 Yes 100mg Q.[id number] Take 100 Methodi (NEURONTIN) - [id number] mg by s t 100 mg 15:48: 3D mouth 3 Hospita capsule 50 (three) l times a day. coenzyme 2020-0 Yes 10mg QD Take 10 mg Met hodi Q10 (Co - by mouth st Q-10) 10 mg 15:48: daily. Hosp michael capsule 50 l ascorbic 2020-0 Yes Take by Method i acid - mouth. st (VITAMIN C 15:48: Hospita ORAL) 50 l b complex 2020-0 Yes 1{capsu QD Take 1 Met hodi vitamins -28 le} capsule by st capsule 15:48: mouth Hospita 50 daily. l MULTIVITAMI 2020-0 Yes Take by Met hodi N ORAL -[address] 15:48: Hospita 50 l furosemide 2020-0 Yes 20mg Q.5D Take 20 mg M ethodi (LASIX) 20 -[address] mg tablet 15:48: (two) Hospita 50 times a l day. docosahexae 2020-0 Yes Take by Met hodi noic -[address] acid/epa 15:48: Hospita (FISH OIL 50 l ORAL) aspirin 325 2020-0 Yes 325mg QD Take 325 M ethodi MG tablet 5-[address] 15:48: mouth Hospita 50 daily. l atorvastati 2020-0 Yes 40mg QD Take 40 mg Methodi n (LIPITOR) 5-[address] 40 MG 15:48: daily. Hospita tablet 50 l bisoprolol 2020-0 Yes 10mg QD Take 10 mg M ethodi (ZEBETA) 10 -[address] MG tablet 15:48: daily. Hospit a 50 l rOPINIRole 2020-0 Yes 2mg QD Take 2 mg Me thodi (REQUIP) 2 -[address] MG tablet 15:48: nightly. Hosp michael 50 l ramipriL 2020-0 Yes 10mg QD Take 10 mg Met hodi (ALTACE) 10 -[address] MG capsule 15:48: daily. Hospi ta 50 l gabapentin 2020-0 Yes 100mg Q.[id number] Take 100 Methodi (NEURONTIN) - [id number] mg by s t 100 mg 15:48: 3D mouth 3 Hospita capsule 50 (three) l times a day. coenzyme 2020-0 Yes 10mg QD Take 10 mg Met hodi Q10 (Co - by mouth st Q-10) 10 mg 15:48: daily. Hosp michael capsule 50 l ascorbic 2020-0 Yes Take by Method i acid -[address] (VITAMIN C 15:48: Hospita ORAL) 50 l b complex 2020-0 Yes 1{capsu QD Take 1 Met hodi vitamins -28 le} capsule by st capsule 15:48: mouth Hospita 50 daily. l MULTIVITAMI 2020-0 Yes Take by Met hodi N ORAL -[address] 15:48: Hospita 50 l furosemide 2020-0 Yes 20mg Q.5D Take 20 mg M ethodi (LASIX) 20 - by mouth 2 st mg tablet 15:48: (two) Hospita 50 times a l day. docosahexae 2020-0 Yes Take by Met hodi noic 5-[address] acid/epa 15:48: Hospita (FISH OIL 50 l ORAL) aspirin 325 2020-0 Yes 325mg QD Take 325 M ethodi MG tablet 5-[address] 15:48: mouth Hospita 50 daily. l atorvastati 2020-0 Yes 40mg QD Take 40 mg Methodi n (LIPITOR) 5-[address] 40 MG 15:48: daily. Hospita tablet 50 l bisoprolol 2020-0 Yes 10mg QD Take 10 mg M ethodi (ZEBETA) 10 5-[address] MG tablet 15:48: daily. Hospit a 50 l rOPINIRole 2020-0 Yes 2mg QD Take 2 mg Me thodi (REQUIP) 2 5-[address] MG tablet 15:48: nightly. Hosp michael 50 l ramipriL 2020-0 Yes 10mg QD Take 10 mg Met hodi (ALTACE) 10 5-[address] MG capsule 15:48: daily. Hospi ta 50 l gabapentin 2020-0 Yes 100mg Q.[id number] Take 100 Methodi (NEURONTIN) 5-28 [id number] mg by s t 100 mg 15:48: 3D mouth 3 Hospita capsule 50 (three) l times a day. coenzyme 2020-0 Yes 10mg QD Take 10 mg Met hodi Q10 (Co 5-[address] Q-10) 10 mg 15:48: daily. Hosp michael capsule 50 l aspirin 325 2020-0 Yes 325mg QD Take 325 M ethodi MG tablet 5-[address] 15:48: mouth Hospita 50 daily. l atorvastati 2020-0 Yes 40mg QD Take 40 mg [facility] (LIPITOR) 5-[address] 40 MG 15:48: daily. Hospita tablet 50 l bisoprolol 2020-0 Yes 10mg QD Take 10 mg M ethodi (ZEBETA) 10 5-[address] MG tablet 15:48: daily. Hospit a 50 l rOPINIRole 2020-0 Yes 2mg QD Take 2 mg Me thodi (REQUIP) 2 5-[address] MG tablet 15:48: nightly. [facility] 50 l ramipriL 2020-0 Yes 10mg QD Take 10 mg Met hodi (ALTACE) 10 5-[address] MG capsule 15:48: daily. Hospi ta 50 l gabapentin 2020-0 Yes 100mg [id number] Take 100 [facility] (NEURONTIN) 5-28 [id number] mg by s t 100 mg 15:48: 3D mouth 3 Hospita capsule 50 (three) l times a day. coenzyme 2020-0 Yes 10mg QD Take 10 mg Met hodi Q10 (Co 5-[address] Q-10) 10 mg 15:48: daily. [facility] capsule 50 l ascorbic 2020-0 Yes Take by [facility] i acid 5-[address] (VITAMIN C 15:48: Hospita ORAL) 50 l b complex 2020-0 Yes 1{capsu QD Take 1 Met hodi vitamins 5-28 le} capsule by st capsule 15:48: mouth Hospita 50 daily. l MULTIVITAMI 2020-0 Yes Take by Met hodi N ORAL 5-[address] 15:48: Hospita 50 l furosemide 2020-0 Yes 20mg Q.5D Take 20 mg M ethodi (LASIX) 20 5-[address] mg tablet 15:48: (two) Hospita 50 times a l day. docosahexae 2020-0 Yes Take by Met hodi noic 5-[address] acid/epa 15:48: Hospita (FISH OIL 50 l ORAL) ascorbic 2020-0 Yes Take by Method i acid 5-[address] (VITAMIN C 15:48: Hospita ORAL) 50 l b complex 2020-0 Yes 1{capsu QD Take 1 Met hodi vitamins 5-28 le} capsule by st capsule 15:48: mouth Hospita 50 daily. l MULTIVITAMI 2020-0 Yes Take by Met hodi N ORAL 5-[address] 15:48: Hospita 50 l furosemide 2020-0 Yes 20mg Q.5D Take 20 mg M ethodi (LASIX) 20 5-[address] mg tablet 15:48: (two) Hospita 50 times a l day. docosahexae 2020-0 Yes Take by Met hodi noic 5-[address] acid/epa 15:48: Hospita (FISH OIL 50 l ORAL) gabapentin 2020-0 Yes Iveth 1 cap(s) Memoria 5-09 Yenni l 04:15: 35 gabapentin 2020-0 Yes Iveth 1 cap(s) [facility] 5-09 [place] 04:15: 35 gabapentin 2020-0 Yes Iveth 1 cap(s) Memoria 5-09 Yenni l 04:15: 35 aspirin 2020-0 Yes Iveth 1 tab(s) Me moria 5-09 Yenni l 04:15: 35 aspirin 2020-0 Yes Iveth 1 tab(s) Me moria 5-09 [place] 04:15: 35 aspirin 2020-0 Yes Iveth 1 tab(s) Me moria 5-09 [place] 04:15: 35 atorvastati 2020-0 Yes Iveth 1 tab(s) Memoria n 5-09 Yenni l 04:15: 35 atorvastati 2020-0 Yes Iveth 1 tab(s) Memoria n 5-09 Yenni l 04:15: 35 atorvastati 2020-0 Yes Iveth 1 tab(s) Memoria n 5-09 [place] 04:15: 35 furosemide 2020-0 Yes Iveth 1 tab(s) Memoria 5-09 Yenni l 04:15: 35 furosemide 2020-0 Yes Iveth 1 tab(s) Memoria 5-09 Yenni l 04:15: 35 furosemide 2020-0 Yes Iveth 1 tab(s) Memoria 5-09 Yenni l 04:15: ropinirole 2020-0 Yes Iveth 1 tab(s) Memoria 5-09 [place] 04:15: 35 ropinirole 2020-0 Yes Iveth 1 tab(s) [facility]oria 5-09 [place] 04:15: 35 ropinirole 2020-0 Yes Iveth 1 tab(s) [facility]oria 5-09 [place] 04:15: 35 Vitamin C 2020-0 Yes Iveth 1 tab(s) Memoria 5-09 Yenni l 04:15: 35 Vitamin C 2020-0 Yes Iveth 1 tab(s) Memoria 5-09 Yenni l 04:15: 35 Vitamin C 2020-0 Yes Iveth 1 tab(s) Memoria 5-09 Yenni l 04:15: 35 Fish Oil 2020-0 Yes Iveth 1 cap(s) M emoria 5-09 Yenni l 04:15: 35 Fish Oil 2020-0 Yes Iveth 1 cap(s) M emoria 5-09 [place] 04:15: 35 Fish Oil 2020-0 Yes Iveth 1 cap(s) M emoria 5-09 [place] 04:15: 35 Ramipril 2020-0 Yes Iveth TAKE 1 Mem oria 5-09 Yenni CAPSULE BY l 04:15: MOUTH [place] 35 EVERY DAY Ramipril 2020-0 Yes Iveth TAKE 1 Mem oria 5-09 Yenni CAPSULE BY l 04:15: MOUTH [place] 35 EVERY DAY Ramipril 2020-0 Yes Iveth TAKE 1 Mem oria 5-09 [place] CAPSULE BY l 04:15: MOUTH Kevin 35 EVERY DAY amoxicillin 2020-0 Yes Iveth 1 tab(s) Memoria -clavulanat 5-08 Yenni l e 00:00: [place] 00 amoxicillin 2020-0 Yes Iveth 1 tab(s) Memoria -clavulanat 5-08 [place] e 00:00: [place] 00 amoxicillin 2020-0 Yes Iveth 1 tab(s) Memoria -clavulanat 5-08 [place] e 00:00: Kevin 00 Ropinirole 2020-0 Yes Iveth 1 TAB(S) [facility]oria Hydrochlori 4-05 [place] 1-2 HRS l de 04:10: BEFORE Kevin 51 BEDTIME ORALLY 30 DAYS Ropinirole 2020-0 Yes Iveth 1 TAB(S) [facility]oria Hydrochlori 4-05 Yenni 1-2 HRS l de 04:10: BEFORE [place] 51 BEDTIME ORALLY 30 DAYS Ropinirole 2020-0 Yes Iveth 1 TAB(S) [facility]oria Hydrochlori 4-05 [place] 1-2 HRS l de 04:10: BEFORE [place] 51 BEDTIME ORALLY 30 DAYS Gabapentin 2020-0 Yes Iveth TAKE 1 M emoria 4-05 Yenni CAPSULE BY l 04:10: MOUTH [place] 51 THREE TIMES DAILY NEEDED Gabapentin 2020-0 Yes Iveth TAKE 1 M emoria 4-05 [place] CAPSULE BY l 04:10: MOUTH Kevin 51 THREE TIMES DAILY NEEDED Gabapentin 2020-0 Yes Iveth TAKE 1 M emoria 4-05 Yenni CAPSULE BY l 04:10: MOUTH Kevin 51 THREE TIMES DAILY NEEDED Ropinirole 2020-0 Yes Iveth 1 TAB(S) Memoria Hydrochlori 4-05 Yenni 1-2 HRS l de 04:10: BEFORE [place] 51 BEDTIME ORALLY 30 DAYS Ropinirole 2020-0 Yes Iveth 1 TAB(S) [facility]oria Hydrochlori 4-05 [place] 1-2 HRS l de 04:10: BEFORE [place] 51 BEDTIME ORALLY 30 DAYS Ropinirole 2020-0 Yes Iveth 1 TAB(S) [facility]oria Hydrochlori 4-05 Yenni 1-2 HRS l de 04:10: BEFORE [place] 51 BEDTIME ORALLY 30 DAYS Ramipril 2020-0 Yes Iveth 1 cap(s) M emoria 4-05 [place] once daily l 04:10: orally 90 Kevin 51 days Ramipril 2020-0 Yes Iveth 1 cap(s) M emoria 4-05 Yenni once daily l 04:10: orally 90 [place] 51 days Ramipril 2020-0 Yes Iveth 1 cap(s) M emoria 4-05 [place] once daily l 04:10: orally 90 Kevin 51 days HYDROcodone 2020-0 Yes 60{tbl} Q6H Take 60 [facility] -acetaminop 3-[address] [facility] (Adwanted) 00:00: mouth Hospi ta 10-325 mg 00 every 6 l per tablet (six) hours as needed. HYDROcodone 2020-0 Yes 60{tbl} Q6H Take 60 [facility] -acetaminop 3-[address] hen (Adwanted) 00:00: mouth Hospi ta 10-325 mg 00 every 6 l per tablet (six) hours as needed. HYDROcodone 2020-0 Yes 60{tbl} Q6H Take 60 [facility] -acetaminop 3-[address] hen (Adwanted) 00:00: mouth Hospi ta 10-325 mg 00 every 6 l per tablet (six) hours as needed. HYDROcodone 2020-0 Yes 60{tbl} Q6H Take 60 [facility] -acetaminop 3-[address] hen (Adwanted) 00:00: mouth Hospi ta 10-325 mg 00 every 6 l per tablet (six) hours as needed. Viagra 2019 Yes Iveth 1 tab(s) Mem oria 1-21 Yenni l 00:00: Kevin Viagra 2018-11 Yes Iveth 1 tab(s) Mem oria 1-21 Yenni l 00:00: Kevin Viagra 2018-11 Yes Iveth 1 tab(s) Mem oria 1-21 [place] 00:00: Ropinirole 2019-0 Yes Ryley 1 TAB(S) Mem oria Hydrochlori 7-16 Vanderzyl 1-2 HRS l de 04:12: BEFORE 11 BEDTIME ORALLY 30 DAYS Ropinirole 2019-0 Yes Ryley 1 TAB(S) Mem oria Hydrochlori 7-16 Vanderzyl 1-2 HRS l de 04:12: BEFORE Kevin 11 BEDTIME ORALLY 30 DAYS Ropinirole 2019-0 Yes Ryley 1 TAB(S) [facility]ria Hydrochlori 7-16 Vanderzyl 1-2 HRS l de 04:12: BEFORE 11 BEDTIME ORALLY 30 DAYS clobetasol 2019-0 Yes Iveth 1 reno Me moria topical 7-12 Yenni l 00:00: clobetasol 2019-0 Yes Iveth 1 reno Me moria topical 7-12 [place] l 00:00: clobetasol 2019-0 Yes Iveth 1 reno Me moria topical 7-12 [place] l 00:00: gabapentin 2019-0 Yes Ryley 1 cap(s) Mem oria 7-12 [place] l 00:00: gabapentin 2019-0 Yes Ryley 1 cap(s) Mem oria 7-12 [place] l 00:00: gabapentin 2019-0 Yes Ryley 1 cap(s) Mem oria 7-12 [place] l 00:00: triamcinolo 2018-0 Yes Ryley 1 reno Memor ia ne topical 5-22 [place] l 00:00: triamcinolo 2018-0 Yes Ryley 1 reno Memor ia ne topical 5-22 [place] l 00:00: triamcinolo 2018-0 Yes Ryley 1 reno Memor ia ne topical 5-22 [place] l 00:00: bisoprolol- 2015-11 Yes Iveth 1 tab(s) [facility] hydrochloro 0-03 [place] thiazide 00:00: bisoprolol- 2015-11 Yes Iveth 1 tab(s) [facility] hydrochloro 0-03 [place] thiazide 00:00: bisoprolol- 2015-11 Yes Iveth 1 tab(s) Memoria hydrochloro 0-03 Yenni l thiazide 00:00: [place] 00 Chantix 2016-0 Yes Ryley 1 tab(s) Memori a 8 [place] l 00:00: [place] 00 Chantix 2016-0 Yes Ryley 1 tab(s) Memori a 8- [place] l 00:00: [place] 00 Chantix 2016-0 Yes Ryley 1 tab(s) Memori a 8 [place]yl l 00:00: Kevin 00 Ciprodex 2016-0 Yes Ryley 4 gtt Memoria 8 [place] l 00:00: [place] 00 Ciprodex 2016-0 Yes Ryley 4 gtt Memoria 8 [place] l 00:00: [place] 00 Ciprodex 2016-0 Yes Ryley 4 gtt Memoria 8 [place] l 00:00: Kevin 00 Stendra 2016-0 Yes Iveth 1 tab(s) Me moria 4-01 Yenni l 00:00: Kevin 00 Stendra 2016-0 Yes Iveth 1 tab(s) Me moria 4-01 Yenni l 00:00: Kevin 00 Stendra 2016-0 Yes Iveth 1 tab(s) Me moria 4-01 [place] 00:00: [place] 00 ropinirole 2014-0 Yes Iveth 1 tab(s) Memoria 9-26 [place] l 00:00: Kevin 00 ropinirole 2014-0 Yes Iveth 1 tab(s) Memoria 9-26 Yenni l 00:00: [place] 00 ropinirole 2014-0 Yes Iveth 1 tab(s) Memoria 9-26 Yenni l 00:00: Kevin 00 Lipitor 2014-0 Yes Ryley 1 tab(s) Memori a 7-03 [place] l 00:00: [place] 00 Lipitor 2014-0 Yes Ryley 1 tab(s) Memori a 7- [place] l 00:00: [place] 00 Lipitor 2014-0 Yes Ryley 1 tab(s) Memori a 7-03 [place] l 00:00: Kevin 00 Adona 2012-0 Yes Iveth 1 tab(s) Jose jarrett 6-14 Yenni l 00:00: Kevin 00 Adona 2013-0 Yes Iveth 1 tab(s) Jose jarrett 6-14 Yenni l 00:00: [place] 00 Adona 2012-0 Yes Iveth 1 tab(s) Jose jarrett 6-14 Yenni l 00:00: [place] 00 Vital Signs Vital Name Observation Time Observation Value Comments Source HEIGHT 2020-04-17 00:00:00 177.8 cm WEIGHT 2020-04-17 00:00:00 83.008 kg HEIGHT 2020-04-17 00:00:00 177.8 cm WEIGHT 2020-04-17 00:00:00 83.008 kg Height 2020-03-21 14:45:00 [facility] Height 2020-03-21 14:45:00 [facility] [place] Weight 2020-03-21 14:45:00 [facility] [place] Weight 2020-03-21 14:45:00 [facility] [place] Temperature Oral (F) 2020-03-21 14:45:00 97.5 F [facility] Temperature Oral (F) 2020-03-21 14:45:00 97.5 F [facility] [place] Diastolic (mm Hg) 2020-03-21 14:45:00 Mem orial Kevin Diastolic (mm Hg) 2020-03-21 14:45:00 Mem orial [place] Diastolic (mm Hg) 2020-03-21 14:45:00 Mem orial [place] Systolic (mm Hg) 2020-03-21 14:45:00 Jose rial [place] Systolic (mm Hg) 2020-03-21 14:45:00 Jose rial Kevin Height 2020-01-10 13:30:00 [facility] Kevin Height 2020-01-10 13:30:00 [facility] [place] Height 2020-01-10 13:30:00 [facility] Weight 2020-01-10 13:30:00 [facility] Weight 2020-01-10 13:30:00 [facility] [place] Temperature Oral (F) 2020-01-10 13:30:00 97.8 F [facility] Temperature Oral (F) 2020-01-10 13:30:00 97.8 F [facility] Temperature Oral (F) 2020-01-10 13:30:00 97.8 F [facility] [place] Diastolic (mm Hg) 2020-01-10 13:30:00 Mem orial [place] Diastolic (mm Hg) 2020-01-10 13:30:00 Mem orial [place] Diastolic (mm Hg) 2020-01-10 13:30:00 Mem orial [place] Systolic (mm Hg) 2020-01-10 13:30:00 Jose rial Kevin Systolic (mm Hg) 2020-01-10 13:30:00 Jose rial Kevin Systolic (mm Hg) 2020-01-10 13:30:00 Jose rial Kevin Height 2019-05-25 13:10:00 [facility] [place] Height 2019-05-25 13:10:00 [facility] Kevin Height 2019-05-25 13:10:00 [facility] Kevin Weight 2019-05-25 13:10:00 [facility] Weight 2019-05-25 13:10:00 [facility] [place] Temperature Oral (F) 2019-05-25 13:10:00 96.3 F [facility] [place] Temperature Oral (F) 2019-05-25 13:10:00 96.3 F [facility] Diastolic (mm Hg) 2019-05-25 13:10:00 Mem orial [place] Diastolic (mm Hg) 2019-05-25 13:10:00 Mem orial Kevin Diastolic (mm Hg) 2019-05-25 13:10:00 Mem orial Kevin Systolic (mm Hg) 2019-05-25 13:10:00 Jose rial [place] Systolic (mm Hg) 2019-05-25 13:10:00 Jose rial [place] Systolic (mm Hg) 2019-05-25 13:10:00 Jose rial Kevin Procedures This patient has no known procedures. Plan of Care Planned Activity Planned Date Details Comments Source Future Scheduled 2030-04-[address] [facility] colon (procedure) [code = 799530604] Future Scheduled 2030-04-[address] [facility] 00:00:00 [facility] colon (procedure) [code = 126811160] Future Scheduled 2030-04-[address] [facility] 00:00:00 [facility] colon (procedure) [code = 703559682] Future Scheduled 2030-04-[address] [facility] 00:00:00 [facility] colon (procedure) [code = 137195283] Future Scheduled 2030-04-[address] [facility] 00:00:00 [facility] colon (procedure) [code = 916797213] Future Scheduled 2030-04-[address] [facility] 00:00:00 [facility] colon (procedure) [code = 645556074] Future Scheduled 2022-11-12 65+ [facility]OCOCCAL [facility] 11:07:05 VACCINE (1 - PCV) [code = 65+ PNEUMOCOCCAL VACCINE (1 - PCV)] Future Scheduled 2022-11-12 Hepatitis C screening [facility] Test 11:07:05 (procedure) [code = 641232182] Future Scheduled 2022-11-12 COLONOSCOPY SCREENING [facility] Test 11:07:05 [code = COLONOSCOPY SCREENING] Future Scheduled 2022-11-12 SHINGLES VACCINES (1 Met [facility] Test 11:07:05 of 2) [code = SHINGLES VACCINES (1 of 2)] Future Scheduled 2022-11-12 COVID-19 VACCINE (3 - [facility] Test 11:07:05 Booster for Pfizer series) [code = COVID-19 VACCINE (3 - Booster for Pfizer series)] Future Scheduled 2022-11-12 INFLUENZA VACCINE [facility] Test 11:07:05 [code = INFLUENZA VACCINE] Future Scheduled 2022-11-12 65+ P[facility]UMOCOCCAL [facility] Test 11:07:05 VACCINE (1 - PCV) [code = 65+ PNEUMOCOCCAL VACCINE (1 - PCV)] Future Scheduled 2022-11-[address] [facility] Test 11:07:05 (procedure) [code = 523704392] Future Scheduled 2022-11-12 COLONOSCOPY SCREENING [facility] Test 11:07:05 [code = COLONOSCOPY SCREENING] Future Scheduled 2022-11-12 SHINGLES VACCINES (1 Met [facility] Test 11:07:05 of 2) [code = SHINGLES VACCINES (1 of 2)] Future Scheduled 2022-11-12 COVID-19 VACCINE (3 - [facility] Test 11:07:05 Booster for Pfizer series) [code = COVID-19 VACCINE (3 - Booster for Pfizer series)] Future Scheduled 2022-11-12 INFLUENZA VACCINE [facility] Test 11:07:05 [code = INFLUENZA VACCINE] Future Scheduled 2022-10-27 65+ [facility]OCOCCAL [facility] Test 04:38:14 VACCINE (1 - PCV) [code = 65+ PNEUMOCOCCAL VACCINE (1 - PCV)] Future Scheduled 2022-10-27 Hepatitis C screening [facility] Test 04:38:14 (procedure) [code = 414351662] Future Scheduled 2022-10-27 COLONOSCOPY SCREENING [facility] Test 04:38:14 [code = COLONOSCOPY SCREENING] Future Scheduled 2022-10-27 SHINGLES VACCINES (1 Met [facility] Test 04:38:14 of 2) [code = SHINGLES VACCINES (1 of 2)] Future Scheduled 2022-10-27 COVID-19 VACCINE (3 - [facility] Test 04:38:14 Booster for Pfizer series) [code = COVID-19 VACCINE (3 - Booster for Pfizer series)] Future Scheduled 2022-10-27 INFLUENZA VACCINE [facility] Test 04:38:14 [code = INFLUENZA VACCINE] Future Scheduled 2022-08-04 COLONOSCOPY SCREENING [facility] Test 05:05:38 [code = COLONOSCOPY SCREENING] Future Scheduled 2022-08-04 SHINGLES VACCINES (1 Met [facility] Test 05:05:38 of 2) [code = SHINGLES VACCINES (1 of 2)] Future Scheduled 2022-08-04 COVID-19 VACCINE (3 - Me [facility] Test 05:05:38 Booster for Pfizer series) [code = COVID-19 VACCINE (3 - Booster for Pfizer series)] Future Scheduled 2022-08-04 INFLUENZA VACCINE [facility] Test 05:05:38 [code = INFLUENZA VACCINE] Future Scheduled 2022-08-04 HEPATITIS B VACCINES Met [facility] Test 05:05:38 (1 of 3 - 3-dose series) [code = HEPATITIS B VACCINES (1 of 3 - 3-dose series)] Future Scheduled 2022-08-04 65+ P[facility]UMOCOCCAL [facility] Test 05:05:38 VACCINE (1 - PCV) [code = 65+ PNEUMOCOCCAL VACCINE (1 - PCV)] Future Scheduled 2022-08-04 Hepatitis C screening [facility] Test 05:05:38 (procedure) [code = 513862709] Future Scheduled 2022-07-15 INFLUENZA VACCINE (#1) [facility] 00:00:00 [code = INFLUENZA Medical Ce nter VACCINE (#1)] Future Scheduled 2022-07-15 INFLUENZA VACCINE (#1) [facility] 00:00:00 [code = INFLUENZA Medical Ce nter VACCINE (#1)] Future Scheduled 2022-07-15 INFLUENZA VACCINE (#1) [facility] 00:00:00 [code = INFLUENZA Medical Ce nter VACCINE (#1)] Future Scheduled 2021-11-[address] [facility] Test 00:00:00 (12+) [code = Medical Center DEPRESSION SCREENING (12+)] Future Scheduled 2021-11-14 FALLS RISK SCREENING [facility] Test 00:00:00 [code = FALLS RISK Medical C enter SCREENING] Future Scheduled 2021-11-[address] [facility] Test 00:00:00 (12+) [code = Medical Center DEPRESSION SCREENING (12+)] Future Scheduled 2021-11-14 FALLS RISK SCREENING [facility] Test 00:00:00 [code = FALLS RISK Medical C enter SCREENING] Future Scheduled 2021-11-[address] [facility] Test 00:00:00 (12+) [code = Medical Center DEPRESSION SCREENING (12+)] Future Scheduled 2021-11-14 FALLS RISK SCREENING [facility] Test 00:00:00 [code = FALLS RISK Medical C enter SCREENING] Future Scheduled 2021-04-[address] [facility] Test 00:00:00 Counseling and Medical Cente r Screening (12+) [code = Tobacco Cessation Counseling and Screening (12+)] Future Scheduled 2021-04-[address] [facility] Test 00:00:00 Counseling and Medical Cente r Screening (12+) [code = Tobacco Cessation Counseling and Screening (12+)] Future Scheduled 2021-04-[address] [facility] Test 00:00:00 Counseling and Medical Cente r Screening (12+) [code = Tobacco Cessation Counseling and Screening (12+)] Future Scheduled 2020-11-[address] [facility] 00:00:00 WELLNESS (YEAR 2 or Medical Center FIRST YEAR if no IPPE) [code = MEDICARE ANNUAL WELLNESS (YEAR 2 or FIRST YEAR if no IPPE)] Future Scheduled 2020-11-[address] [facility] 00:00:00 WELLNESS (YEAR 2 or Medical Center FIRST YEAR if no IPPE) [code = MEDICARE ANNUAL WELLNESS (YEAR 2 or FIRST YEAR if no IPPE)] Future Scheduled 2020-11-[address] [facility] 00:00:00 WELLNESS (YEAR 2 or Medical Center FIRST YEAR if no IPPE) [code = MEDICARE ANNUAL WELLNESS (YEAR 2 or FIRST YEAR if no IPPE)] Future Scheduled 2000 SHINGLES VACCINES ([address] [facility] Test 00:00:00 of 2) [code = SHINGLES Medic al Center VACCINES (1 of 2)] Future Scheduled 2000 SHINGLES VACCINES ([address] [facility] Test 00:00:00 of 2) [code = SHINGLES Medic al Center VACCINES (1 of 2)] Future Scheduled 2000 SHINGLES VACCINES ([address] [facility] Test 00:00:00 of 2) [code = SHINGLES Medic al Center VACCINES (1 of 2)] Future Scheduled 1969 DTAP/TDAP/TD [facility]ACCINES [facility] 00:00:00 (1 - Tdap) [code = Medical C enter DTAP/TDAP/TD VACCINES (1 - Tdap)] Future Scheduled 1969 DTAP/TDAP/TD [facility]ACCINES [facility] 00:00:00 (1 - Tdap) [code = Medical C enter DTAP/TDAP/TD VACCINES (1 - Tdap)] Future Scheduled 1969 DTAP/TDAP/TD [facility]ACCINES [facility] 00:00:00 (1 - Tdap) [code = Medical C enter DTAP/TDAP/TD VACCINES (1 - Tdap)] Future Scheduled 1968 HE[facility]ITIS C [facility] 00:00:00 [code = HEPATITIS C Medical Center SCREENING] Future Scheduled 1968 HEPATITIS C [facility] 00:00:00 [code = HEPATITIS C Medical Center SCREENING] Future Scheduled 1968 HEPATITIS C [facility] 00:00:00 [code = HEPATITIS C Medical Center SCREENING] Future Scheduled 1956 PNEUMOCOCCAL 65+ Y[facility] Test 00:00:00 (1 - PCV) [code = Medical Ce nter PNEUMOCOCCAL 65+ YRS (1 - PCV)] Future Scheduled 1956 PNEUMOCOCCAL 65+ YRS [facility] Test 00:00:00 (1 - PCV) [code = Medical Ce nter PNEUMOCOCCAL 65+ YRS (1 - PCV)] Future Scheduled 1956 PNEUMOCOCCAL 65+ YRS [facility] Test 00:00:00 (1 - PCV) [code = Medical Ce nter PNEUMOCOCCAL 65+ YRS (1 - PCV)] Future Scheduled 1950 COVID-19 VACCINE (#1) [facility] 00:00:00 [code = COVID-[address] VACCINE (#1)] Future Scheduled 1950 COVID-19 VACCINE (#1) [facility] 00:00:00 [code = COVID-[address] VACCINE (#1)] Future Scheduled 1950 COVID-19 VACCINE (#1) [facility] 00:00:00 [code = COVID-[address] VACCINE (#1)] Future Scheduled [address] [facility] 00:00:00 (combo) [code = CT Medical C enter Colonography (combo)] Future Scheduled [address] [facility] 00:00:00 [facility] Center colon (procedure) [code = 543087813] Future Scheduled [address] [facility] 00:00:00 [facility] Center colon (procedure) [code = 469453849] Future Scheduled 1950 Sigmoidoscopy [code = [facility]] Medical Cente r Future Scheduled [address] [facility] 00:00:00 (combo) [code = CT Medical C enter Colonography (combo)] Future Scheduled [address] [facility] 00:00:00 [facility] colon (procedure) [code = 516474247] Future Scheduled [address] [facility] 00:00:00 [facility] colon (procedure) [code = 701370475] Future Scheduled 1950 Sigmoidoscopy [facility]code [facility]] Medical Cent[facility] r Future Scheduled [address] [facility] 00:00:00 (combo) [code = CT Medical C enter Colonography (combo)] Future Scheduled [address] [facility] 00:00:00 [facility] colon (procedure) [code = 447835942] Future Scheduled [address] [facility] 00:00:00 malignant [facility] of [facility] colon (procedure) [code = 656775558] Future Scheduled 1950 Sigmoidoscopy [facility] S[facility]oscopy] Medical Luz Marina r Encounters Start End Encounter Admission Attending Care Care Encounter Source Date/Time Date/Time Type Type Clinicians Facility Department ID 2021-08-18 Outpatient [facility] [id number] [facility] 19[facility]25:26 [facility] 2020-11-28 Inpatient EL Oh, Patt [facility] [id number] [facility] 11:09:[address] [facility] 2020-08-14 Inpatient EL Oh, Patt [facility] [id number] [facility] 00:[facility]:[address] [facility] 2020-07-15 Inpatient EL Oh, Patt [facility] [id number] [facility] 00:[facility] [facility] 2020-06-15 Inpatient EL Oh, Patt [facility] [id number] [facility] 16:23:[address] [facility] 2022-11-11 2022-11-12 [facility] [id number] [facility] 18:28:28 05:59:59 r [facility] 2022-11-11 2022-11-12 Outpatient nullFlavo [facility] [id number] Memoria 18:28:28 05:59:59 [facility] 2022-11-11 2022-11-12 Outpatient nullFlavo [facility] [id number] [facility] 18:28:28 05:59:59 [facility] 2022-11-11 2022-11-11 Outpatient Ivory, [id number] 12:28:28 23:59:59 [facility] 2022-11-11 2022-11-11 Outpatient nullFlavo [facility] [id number] Memoria 12:28:28 23:59:59 [place] 2022-11-11 2022-11-11 Outpatient Ivory, [id number] 12:28:28 23:59:59 Ryley 8 2022-11-11 2022-11-11 Outpatient nullFlavo [facility] [id number] Memoria 12:28:28 23:59:59 [place] Brown 2022-11-11 2022-11-11 Outpatient Ivory, [id number] 12:28:28 23:59:59 Ryley 8 2022-11-11 2022-11-11 Outpatient nullFlavo [facility] [id number] Memoria 12:28:28 23:59:59 [place] Brown 2022-05-31 2022-05-31 Outpatient EL Oh, Patt [facility] RTX [id number] [facility] 15:27:00 15:27:[address] [facility] 2022-05-31 2022-05-31 Outpatient EL Oh, Patt [facility] H[facility]U [id number] [facility] 15:27:00 15:27:[id number] [facility] 2021-06-08 2021-06-08 Inpatient EL Oh, Patt [facility] RTX [id number] [facility] 09:52:00 09:52:[address] [facility] 2021-04-27 2021-04-27 Outpatient TOR MARRERO [facility] [id number] [place] 00:00:00 00:00:[address] 2021-04-27 2021-04-27 Outpatient TOR MARRERO [facility] [id number] [place] 00:00:00 00:00:[address] 2021-02-26 2021-02-26 [facility] [place] [id number] [place] 15:40:00 15:40:00 [facility] 2021-02-26 2021-02-26 [facility]patient [place] [id number] [place] 15:40:00 15:40:00 [facility] 2021-02-26 2021-02-26 [facility]patient [place] [id number] [place] 15:40:00 15:40:00 [facility] 2021-01-05 2021-01-05 [facility] [place] [id number] [place] 16:31:00 16:31:00 [facility] 2021-01-05 2021-01-05 [facility] [place] [id number] [place] 16:31:00 16:31:00 [facility] 2021-01-05 2021-01-05 [facility] [place] [id number] [place] 16:31:00 16:31:00 [facility] 2021-01-05 2021-01-05 [facility] [place] [id number] [place] 13:13:00 13:13:00 [facility] 2021-01-05 2021-01-05 [facility] [place] [id number] [place] 13:13:00 13:13:00 [facility] 2021-01-05 2021-01-05 [facility] [place] [id number] [place] 13:13:00 13:13:00 [facility] 2020-05-30 2020-05-30 Outpatient EL [facility] [id number] [facility] 13:22:00 13:22:[address] [facility] 2020 2020 Outpatient [facility] [id number] [address] [place] [address] 00:00:00 00:00:[address] 2020-05-07 2020-05-07 [facility] [place] [id number] [place] 15:28:00 15:28:00 [facility] 2020-05-07 2020-05-07 [facility] [place] [id number] [place] 15:28:00 15:28:00 [facility] 2020-05-07 2020-05-07 [facility] [place] [id number] [place] 15:28:00 15:28:00 [facility] 2020-04-22 2020-04-22 Outpatient EL [facility] [id number] [facility] 00:00:00 00:00:00 2020-04-17 2020-04-17 Outpatient SMILEY, [facility] [id number] [address] [place] [address] 00:00:00 00:00:00 VINCENT [address] 2020-04-10 2020-04-10 [facility] [place] [id number] [place] 14:01:00 14:01:00 [facility] 2020-04-10 2020-04-10 [facility] [place] [id number] [place] 14:01:00 14:01:00 [facility] 2020-04-10 2020-04-10 Outpatient [place] [id number] [place] 14:01:00 14:01:00 [facility] 2020-04-10 2020-04-10 Outpatient SMILEY, [facility] [id number] [place] 00:00:00 00:00:00 VINCENT [address] 2020-04-09 2020-04-09 Outpatient SMILEY, [facility] [id number] [place] 00:00:00 00:00:00 VINCENT 9[address] 2020-04-09 2020-04-09 Outpatient SMILEY, [facility] [id number] [place] 00:00:00 00:00:00 VINCENT 708 [address] i 2020-04-09 2020-04-09 Outpatient SMILEY, [facility] [id number] [place] 00:00:00 00:00:00 VINCENT [address] 2020-04-09 2020-04-09 Emergency KATHIA PRESSLEY [facility] [id number] [place] 00:00:00 00:00:00 [address] 2020-03-31 2020-03-31 [facility] [place] [id number] [place] 11:22:00 11:22:00 [facility] 2020-03-31 2020-03-31 Outpatient [place] [id number] [place] 11:22:00 11:22:00 [facility] 2020-03-31 2020-03-31 [facility] [place] [id number] [place] 11:22:00 11:22:00 [facility] 2020-03-21 2020-03-21 [facility] [place] [id number] [place] 09:45:00 09:45:00 [facility] 2020-03-21 2020-03-21 Outpatient [place] [id number] [place] 09:45:00 09:45:00 [facility] 2020-03-21 2020-03-21 [facility] [place] [id number] [place] 09:45:00 09:45:00 [facility] 2020-03-19 2020-03-19 [facility] [place] [id number] [place] 10:53:00 10:53:00 [facility] 2020-03-19 2020-03-19 [facility] [place] [id number] [place] 10:53:00 10:53:00 [facility] 2020-03-19 2020-03-19 Outpatient [place] [id number] [place] 10:53:00 10:53:00 [facility] 2020-02-07 2020-02-07 Outpatient BABITA, [facility] [id number] [place] 00:00:00 00:00:00 ELLIOTT [address] 2020-01-29 2020-01-29 [facility] [place] [id number] [place] 10:26:00 10:26:00 [facility] 2020-01-29 2020-01-29 Out[facility] [place] [id number] [place] 10:26:00 10:26:00 [facility] 2020-01-29 2020-01-29 Outpatient [place] [id number] [place] 10:26:00 10:26:00 [facility] TV 2020-01-29 2020-01-29 Out[facility] [place] [id number] [place] 10:16:00 10:16:00 [facility] 2020-01-29 2020-01-29 [facility] [place] [id number] [place] 10:16:00 10:16:00 [facility] 2020-01-29 2020-01-29 [facility]patient [place] [id number] [place] 10:16:00 10:16:00 [facility] 2020-01-15 2020-01-15 Outpatient [place] [id number] [place] 13:26:00 13:26:00 [facility] 2020-01-15 2020-01-15 Outpatient [place] [id number] [place] 13:26:00 13:26:00 [facility] 2020-01-15 2020-01-15 Out[facility] [place] [id number] [place] 13:26:00 13:26:00 [facility] 2020-01-10 2020-01-10 Outpatient [place] [id number] [place] 08:30:00 08:30:00 [facility] 2020-01-10 2020-01-10 Outpatient [place] [id number] [place] 08:30:00 08:30:00 [facility] 2020-01-10 2020-01-10 Outpatient [place] [id number] [place] 08:30:00 08:30:00 [facility] 2020-01-10 2020-01-10 Out[facility] [place] [id number] [place] 08:20:00 08:20:00 [facility] 2020-01-10 2020-01-10 Outpatient [place] [id number] [place] 08:20:00 08:20:00 [facility] 2020-01-10 2020-01-10 Outpatient [place] [id number] [place] 08:20:00 08:20:00 [facility] 2019-10-04 2019-10-04 [facility] [place] [id number] [place] 18:41:00 18:41:00 [facility] 2019-10-04 2019-10-04 Outpatient [place] [id number] [place] 18:41:00 18:41:00 [facility] 2019-10-04 2019-10-04 Outpatient [place] [id number] [place] 18:41:00 18:41:00 [facility] 2019-10-04 2019-10-04 Out[facility] [place] [id number] [place] 13:55:00 13:55:00 [facility] 2019-10-04 2019-10-04 [facility] [place] [id number] [place] 13:55:00 13:55:00 [facility] 2019-10-04 2019-10-04 Outpatient [place] [id number] [place] 13:55:00 13:55:00 [facility] 2019-10-01 2019-10-01 Outpatient [place] [id number] [place] 10:21:00 10:21:00 [facility] 2019-10-01 2019-10-01 Outpatient [place] [id number] [place] 10:21:00 10:21:00 [facility] 2019-10-01 2019-10-01 Outpatient [place] [id number] [place] 10:21:00 10:21:00 [facility] 2019-09-25 2019-09-25 [facility] [place] [id number] [place] 18:26:00 18:26:00 [facility] 2019-09-25 2019-09-25 Outpatient [place] [id number] [place] 18:26:00 18:26:00 [facility] 2019-09-25 2019-09-25 Outpatient [place] [id number] [place] 18:26:00 18:26:00 [facility] 2019-05-25 2019-05-25 Outpatient [place] [id number] [place] 08:10:00 08:10:00 [facility] 2019-05-25 2019-05-25 Outpatient [place] [id number] [place] 08:10:00 08:10:00 [facility] 2019-05-25 2019-05-25 Outpatient [place] [id number] [place] 08:10:00 08:10:00 [facility] 2018-10-30 2018-10-31 [id number] 05:59:59 r [facility] 2018-10-30 2018-10-31 [facility] [place] [id number] [place] 22:35:50 05:59:59 r [facility] 2018-10-30 2018-10-31 [id number] [place] 22:35:50 05:59:59 r [facility] 2018-10-30 2018-10-30 Outpatient Neisha [id number] 16:35:50 23:59:59 Hu Coon 8 2018-10-30 2018-10-30 Outpatient Neisha [id number] 16:35:50 23:59:59 Hu Coon 8 2018-10-30 2018-10-30 Outpatient nullFlavo [facility] [id number] Memoria 16:35:50 23:59:59 virginia Brown 2018-10-30 2018-10-30 Outpatient nullFlavo [facility] [id number] [place] 16:35:50 23:59:59 virginia Brown 2018-10-30 2018-10-30 Outpatient Neisha, [id number] 16:35:50 23:59:59 Hu Coon 8 2018-10-30 2018-10-30 Outpatient nullFlavo [facility] [id number] [place] 16:35:50 23:59:59 r tyler Brown Results Test Description Test Time Test Comments Results Result Comments Source SARS-COV2/RT-PCR ([facility]) 2020-04-23 16:21:00 Test Item Value Reference Range Interpretation Comme nts SARS-COV2/RT-PCR (test code = 6829510) Negative Not Detected, N egative SARS-COV-2 PERFORMING LAB (test code = 0655064) [facility] SARS coronavirus 2 RNA [Presence] in Respiratory specimen by MIGUELINA with probe [id number] 00:27:51 Test Item Value Reference Range Interpretation Comments SARS coronavirus 2 RNA Not detected Not-Detected [Presence] in Respiratory specimen by MIGUELINA with probe detection (test code = 23756-2) [facility]
[2022-11-19 22:31] LABS: Absolute Lymphocytes (CBC) 1.6 K/uL (0.7-4.9); Hematocrit 52.6 % (39.6-49.0); Lymphocytes % 14.6 % (15.3-44.8); MCV 92.1 fL (80-100); MPV 9.1 fL (7.6-11.3); RBC Red Blood Cell Count 5.71 M/uL (4.33-5.43)
[2022-11-19 22:56] LABS: Potassium 5.2 mmol/L (3.5-5.1); Troponin High Sensitivity 25.2 pg/mL (<58.9)
[2022-11-19 23:01] LABS: Protime INR 1.15
[2022-11-19 23:23] LABS: Bilirubin Direct 0.5 mg/dL (0-0.2); Bilirubin Total 1.8 mg/dL (0.2-1.0); Magnesium 2.1 mg/dL (1.6-2.4); Protein, Total 7.4 g/dL (6.4-8.2)
[2022-11-19 23:24] LABS: Thyroid Stimulating Hormone 6.38 uIU/mL (0.358-3.740)
--- NOTE | 2022-11-20 00:05 | ER ---
Nurse's Notes [facility] Name: Matteo Hernandez Age: 72 yrs Sex: Male : 1950 Arrival Date: 11/19/2022 Time: 21:18 Bed 6 Private MD: Diagnosis: Dyspnea;Unspecified atrial fibrillation-new onset Presentation: 11/19 21:42 Chief complaint: Patient states: ongoing SOB since Thanksgi when he had covid. CXR kb3 on 11/[address] yesterday showed no pneumonia, no PE, mild CHF. Coronavirus screen: Vaccine status: Patient reports receiving the 2nd dose of the covid vaccine. Client denies travel out of the [place] in the last 14 days. Ebola Screen: Patient negative for fever greater than or equal to 101.5 degrees Fahrenheit, and additional compatible Ebola Virus Disease symptoms Patient denies exposure to infectious person. Patient denies travel to an Ebola-affected area in the 21 days before illness onset. Initial Sepsis Screen: Does the patient meet any 2 criteria? No. Patient's initial sepsis screen is negative. Does the patient have a suspected source of infection? No. Patient's initial sepsis screen is negative. Risk Assessment: Do you want to hurt yourself or someone else? Patient reports no desire to harm self or others. Onset of symptoms is unknown. 21:42 Method Of Arrival: Ambulatory 3 21:42 Acuity: JOHNNY 3 kb3 Triage Assessment: 21:48 General: Appears in no apparent distress. Behavior is calm, cooperative. Pain: Denies kb3 pain. Respiratory: Reports shortness of breath at rest Airway is patent Respiratory effort is even, unlabored, Onset: The symptoms/episode began/occurred gradually, the patient has mild shortness of breath. Historical: - Allergies: 21:47 No Known Allergies; kb3 - PMHx: 21:47 Hypertension; Myocardial infarction; Bilateral pedal Edema; kb3 21:48 Hypercholesterolemia; kb3 - PSHx: 21:48 Cardiac Stents; Coronary artery bypass graft; kb3 - Immunization history:: Adult Immunizations up to date, Client reports receiving the 2nd dose of the Covid vaccine, Last tetanus immunization: up to date. - Social history:: Smoking status: Patient/guardian denies using tobacco, Stopped _ months ago 1.5. Screenin:24 Abuse screen: Denies threats or abuse. Denies injuries from another. Nutritional aa9 screening: No deficits noted. Tuberculosis screening: No symptoms or risk factors identified. 11/20 01:59 [facility] ED Fall Risk Assessment (Adult) History of falling in the last 3 months, aa9 including since admission No falls in past 3 months (0 pts) Confusion or Disorientation No (0 pts) Intoxicated or Sedated No (0 pts) Impaired Gait No (0 pts) Mobility Assist Device Used No (0 pt) Altered Elimination No (0 pt) Score/Fall Risk Level 0 - 2 = Low Risk. Assessment: 11/19 22:24 General: Appears in no apparent distress. comfortable, Behavior is calm, cooperative, aa9 appropriate for age. Neuro: Level of Consciousness is awake, alert, obeys commands, Oriented to person, place, time, situation. Cardiovascular: Patient's skin is warm and dry. Cardiovascular: Denies chest pain. Respiratory: Airway is patent Respiratory effort is even, unlabored, Respiratory pattern is regular. Respiratory: Parent/caregiver reports the patient having shortness of breath at rest. GI: No signs and/or symptoms were reported involving the gastrointestinal system. : No signs and/or symptoms were reported regarding the genitourinary system. Derm: Skin is intact, is healthy with good turgor. Musculoskeletal: No signs and/or symptoms reported regarding the musculoskeletal system. 22:30 Cardiovascular: Rhythm is atrial fibrillation. aa9 11/20 00:00 Reassessment: Patient appears in no apparent distress at this time. Patient is alert, aa9 oriented x 3, equal unlabored respirations, skin warm/dry/pink. Patient denies pain at this time. 01:30 Reassessment: Patient appears in no apparent distress at this time. Patient is alert, aa9 oriented x 3, equal unlabored respirations, skin warm/dry/pink. Patient denies pain at this time. 01:59 Respiratory: Breath sounds are clear. aa9 02:03 Reassessment: report given to Inna GARIBAY. aa9 Vital Signs: 11/19 21:42 BP 153 / 83; Pulse 56; Resp 20; Temp 98.1; Pulse Ox 99% ; Weight 95.25 kg; Height 5 ft. kb3 10 in. (177.80 cm); Pain 0/10; 23:03 Pulse 47; Resp 20 S; Pulse Ox 98% on R/A; Pain 0/10; aa9 21:42 Body Mass Index 30.13 (95.25 kg, 177.80 cm) kb3 ED Course: 21:18 Patient arrived in ED. jj6 21:26 Concepcion Deleon [facility]NP-C [facility]. kb 21:26 Inna Gibbs MD is Attending Physician. kb 21:47 Triage completed. kb3 21:48 Arm band placed on right wrist. Patient placed in an exam room. kb3 22:20 Inserted saline lock: 20 gauge in left antecubital area, using aseptic technique. Blood aa9 collected. 22:23 Basic Metabolic Panel Sent. aa9 22:23 CBC with Diff Sent. aa9 22:23 Troponin HS Sent. aa9 22:23 NT PRO-BNP Sent. aa9 22:24 Patient has correct armband on for positive identification. Placed in gown. Bed in low aa9 position. Call light in reach. Adult w/ patient. 22:55 XRAY Chest (1 view) In Process Unspecified. EDMS 23:03 Ellen Henderson, RN is Primary Nurse. aa9 07 00:00 US Extremity Venous W Compression Tong In Process Unspecified. EDMS 00:02 Barber Jasso MD is Hospitalizing Provider. kb 00:40 SARS RAPID Sent. aa9 01:58 No provider procedures requiring assistance completed. Patient admitted, IV remains in aa9 place. Administered Medications: 00:40 Drug: Lasix (furosemide) 40 mg Route: IVP; Site: left antecubital; aa9 01:55 Follow up: Response: No adverse reaction aa9 00:40 Drug: Lovenox (enoxaparin) 1 mg/kg Route: Sub-Q; Site: left lower abdomen; aa9 01:55 Follow up: Response: No adverse reaction aa9 Medication: 01:58 VIS not applicable for this client. aa9 Outcome: 00:04 Decision to Hospitalize by Provider. kb 01:58 Admitted to Med/surg accompanied by tech, via wheelchair, room 224, with chart. aa9 01:58 Condition: stable 01:58 Instructed on the need for admit. 02:05 Patient left the ED. aa9 Signatures: Dispatcher [employer] EDMS Concepcion Deleon FNP-C FNP-CkIveth Andino jj6 Ellen Henderson, RN RN aa9 Geneva Gutierrez, RN RN kb3
--- NOTE | 2022-11-20 00:06 | EDPHYS ---
Physician Documentation [facility] Name: Matteo Hernandez Age: 72 yrs Sex: Male : 1950 Arrival Date: 11/19/2022 Time: 21:18 Bed 6 Private MD: ED Physician Inna Gibbs HPI: 11/19 22:59 This 72 yrs old Male presents to ER via Ambulatory with complaints of Shortness Of kb Breath. 22:59 The patient has shortness of breath at rest. Onset: The symptoms/episode began/occurred kb 1 month(s) ago. Duration: The symptoms are continuous. The patient's shortness of breath is aggravated by Sitting, is alleviated by Standing. Associated signs and symptoms: The patient has no apparent associated signs or symptoms. Severity of symptoms: At their worst the symptoms were mild moderate in the emergency department the symptoms are unchanged. The patient has not experienced similar symptoms in the past. The patient has been recently seen by a physician:. Patient states he had COVID during and has had shortness of breath since then. Was seen by PCP on November 04, had blood work and chest x-ray done. Chest x-ray showed pneumonia at the time so patient was placed on antibiotics and steroids. Blood work came back this week with an elevated D-dimer, patient was sent for CT chest to rule out PE yesterday which was negative for PE but showed mild CHF. Patient denies history of CHF. Patient does take Lasix 20 mg daily and was told by his doctor to increase to 40 mg daily today. Patient states that shortness of breath has not gotten any better since it started.. Historical: - Allergies: 21:47 No Known Allergies; kb3 - PMHx: 21:47 Hypertension; Myocardial infarction; Bilateral pedal Edema; kb3 21:48 Hypercholesterolemia; kb3 - PSHx: 21:48 Cardiac Stents; Coronary artery bypass graft; kb3 - Immunization history:: Adult Immunizations up to date, Client reports receiving the 2nd dose of the Covid vaccine, Last tetanus immunization: up to date. - Social history:: Smoking status: Patient/guardian denies using tobacco, Stopped _ months ago 1.5. ROS: 22:58 Constitutional: Negative for fever, chills, and weight loss. kb 22:58 Respiratory: Positive for shortness of breath. 22:58 All other systems are negative. Exam: 22:40 Constitutional: This is a well developed, well nourished patient who is awake, alert, kb and in no acute distress. Head/Face: Normocephalic, atraumatic. ENT: Moist Mucous membranes Respiratory: Respirations even and unlabored. No increased work of breathing. Talking in full sentences Abdomen/GI: Soft, non-tender. No distention Skin: Warm, dry with normal turgor. Normal color. MS/ Extremity: Pulses equal, no cyanosis. Neurovascular intact. Full, normal range of motion. Neuro: Awake and alert, GCS 15, oriented to person, place, time, and situation. Moves all extremities. Normal gait. Psych: Awake, alert, with orientation to person, place and time. Behavior, mood, and affect are within normal limits. 22:40 Cardiovascular: Rate: normal, Rhythm: irregularly irregular, Pulses: no pulse deficits are appreciated. 22:40 ECG was reviewed by the Attending Physician. Vital Signs: 21:42 BP 153 / 83; Pulse 56; Resp 20; Temp 98.1; Pulse Ox 99% ; Weight 95.25 kg; Height 5 ft. kb3 10 in. (177.80 cm); Pain 0/10; 23:03 Pulse 47; Resp 20 S; Pulse Ox 98% on R/A; Pain 0/10; aa9 21:42 Body Mass Index 30.13 (95.25 kg, 177.80 cm) kb3 MDM: 21:57 Patient medically screened. kb 22:58 Data reviewed: vital signs, nurses notes. Data interpreted: Pulse oximetry: on room air kb is 99 %. Interpretation: normal. 23:53 Counseling: I had a detailed discussion with the patient and/or guardian regarding: the kb historical points, exam findings, and any diagnostic results supporting the discharge/admit diagnosis, lab results, radiology results, the need for further work-up and treatment in the hospital. 11/20 00:07 Differential diagnosis: CHF exacerbation, pulmonary edema. ED course: Consideration of kb hospitalization: We will hospitalize patient for new onset A. fib and possible CHF. Management of the patient was discussed with the following: Usman Baron NP Independent interpretation of the following tests in the emergency department: EKG reveals A. fib History obtained from: pt and spouse. 11/19 22:03 Order name: Basic Metabolic Panel; Complete Time: 22:57 kb 11/19 22:03 Order name: CBC with Diff; Complete Time: 22:39 kb 11/19 22:03 Order name: NT PRO-BNP; Complete Time: 22:57 kb 11/19 22:03 Order name: Troponin HS; Complete Time: 22:57 kb 11/19 22:21 Order name: TSH; Complete Time: 23:38 la1 11/19 22:21 Order name: LFT's; Complete Time: 23:38 la1 11/19 22:03 Order name: XRAY Chest (1 view) kb 11/19 22:21 Order name: PT-INR; Complete Time: 23:01 la1 11/19 22:57 Order name: Magnesium; Complete Time: 23:38 EDMS 11/19 23:01 Order name: US Extremity Venous W Compression Tong kb 11/19 23:26 Order name: T4 Free; Complete Time: 23:38 EDMS 11/20 00:05 Order name: SARS RAPID aa9 11/19 22:03 Order name: EKG; Complete Time: 22:03 kb 11/19 22:03 Order name: Cardiac monitoring; Complete Time: 22:23 kb 11/19 22:03 Order name: EKG - Nurse/Tech; Complete Time: 22:23 kb 11/19 22:03 Order name: IV Saline Lock; Complete Time: 22:23 kb 11/19 22:03 Order name: Labs collected and sent; Complete Time: 22:23 kb 11/19 22:03 Order name: O2 Per Protocol; Complete Time: 22:23 kb 11/19 22:03 Order name: O2 Sat Monitoring; Complete Time: 22:23 kb EC/06 22:40 Rate is 50 beats/min. Rhythm is irregularly irregular. QRS Ward is Normal. QRS interval kb is normal at 136 msec. QT interval is normal at 448 msec. Clinical impression: Atrial Fibrillation. Administered Medications: 11/20 00:40 Drug: Lasix (furosemide) 40 mg Route: IVP; Site: left antecubital; :55 Follow up: Response: No adverse reaction 00:40 Drug: Lovenox (enoxaparin) 1 mg/kg Route: Sub-Q; Site: left lower abdomen; :55 Follow up: Response: No adverse reaction aa9 Disposition Summary: 11/20/22 00:04 Hospitalization Ordered Hospitalization Status: Observation kb Provider: Barber Jasso Location: Telemetry/MedSurg (observation) kb Condition: Stable kb Problem: new kb Symptoms: are unchanged kb Bed/Room Type: Standard kb Room Assignment: 224(11/20/22 01:45) cg Diagnosis - Dyspnea kb - Unspecified atrial fibrillation - new onset kb Forms: - Medication Reconciliation Form kb - SBAR form kb Signatures: Dispatcher [employer] EDNJ Concepcion Deleon, SECONDARY SPECIAL EDUCATION TEACHER-C SECONDARY SPECIAL EDUCATION TEACHER-Neda Garcia, RN RN cg Ellen Henderson RN RN aa9 Geneva Gutierrez, RN RN kb3 Corrections: (The following items were deleted from the chart) 11/19 22:57 22:26 MAGNESIUM+C.LAB.BRZ ordered. [facility] 11/20 01:45 00:04 kb cg
[2022-11-20] MEDS ORDERED: ENOXAPARIN 100 MG/ML SYR SQ ONE (00:15)
[2022-11-20] MEDS ORDERED: FUROSEMIDE 40 MG/4 ML VIAL ONE (00:16)
--- NOTE | 2022-11-20 00:49 | P.HP ---
Certification for Inpatient Patient admitted to: Observation With expected LOS: <2 Midnights Patient will require the following post-hospital care: None Practitioner: I am a practitioner with admitting privileges, knowledge of patient current condition, hospital course, and medical plan of care. Services: Services provided to patient in accordance with Admission requirements found in Title 42 Section 412.3 of the Code of Federal Regulations <Usman Baron - Last Filed: 11/20/22 00:41> Patient History Date of Service: 11/20/22 Reason for admission: New Onset A. fib, dyspnea History of Present Illness: 72-year-old male with history of hypertension, CAD status post CABG, hyperlipidemia presents to the emergency department for dyspnea. He reports feeling short of breath the week before Thanksgiving has been worked up from an outpatient standpoint including having a CT PE protocol yesterday which was negative for pulmonary embolism but showed mild CHF. His physician increased his Lasix dose p.o. at home to feel short of breath so he presented to the emergency department. Patient initial EKG shows atrial fibrillation versus atrial flutter with slow ventricular response with a rate in the 40s to 50s. Patient reports his heart rate typically runs around this number. He does not beta-blockers or other antiarrhythmics. Patient was given therapeutic Lovenox in ED, other labs were significant for mildly elevated potassium at 5.2P 1383 TSH is 6.38, free T4 0.9. ED provider wishes to admit under observation for new onset A. fib, dyspnea. - Past Medical/Surgical History -: CAD S/P CABG -: HTN -: HLD -: CABG ~1989 Psychosocial/ Personal History: Pt lives at home with /family - Family History Mother -: Heart disease, Cancer Brother -: Cancer - Social History Smoking Status: Former smoker Alcohol use: No CD- Drugs: No Caffeine use: Yes Place of Residence: Home <Usman Baron - Last Filed: 11/20/22 00:41> Date of Service: 11/20/22 <Barber Jasso - Last Filed: 11/20/22 17:10> Review of Systems 10-point ROS is otherwise unremarkable Respiratory: Shortness of Breath Cardiovascular: Edema <Usman Baron - Last Filed: 11/20/22 00:41> Physical Examination - Physical Exam General: Alert, In no apparent distress, Oriented x3 HEENT: Atraumatic, PERRLA, Mucous membr. moist/pink, EOMI, Sclerae nonicteric Neck: Supple, 2+ carotid pulse no bruit, No LAD, Without JVD or thyroid abnormality Respiratory: Clear to auscultation bilaterally, Normal air movement Cardiovascular: Regular rate/rhythm, Normal S1 S2 Capillary refill: <2 Seconds Gastrointestinal: Normal bowel sounds, No tenderness Musculoskeletal: No tenderness Integumentary: No rashes Neurological: Normal speech, Normal strength at 5/5 x4 extr, Normal tone, Normal affect - Studies Laboratory Data (last 24 hrs) 11/19/22 22:40: PT 12.6 H, INR 1.15 11/19/22 22:40: Magnesium 2.1, Total Bilirubin 1.8 H, AST 30, ALT 53, Alkaline Phosphatase 118 H 11/19/22 22:26: Magnesium Cancelled 11/19/22 22:21: WBC 11.10 H, Hgb 17.4, Hct 52.6 H, Plt Count 129 L 11/19/22 22:21: Sodium 140, Potassium 5.2 H, BUN 24 H, Creatinine 1.30, Glucose 110 H <Usman Baron - Last Filed: 11/20/22 00:41> - Studies Laboratory Data (last 24 hrs) 11/19/22 22:40: PT 12.6 H, INR 1.15 11/19/22 22:40: Magnesium 2.1, Total Bilirubin 1.8 H, AST 30, ALT 53, Alkaline Phosphatase 118 H 11/19/22 22:26: Magnesium Cancelled 11/19/22 22:21: WBC 11.10 H, Hgb 17.4, Hct 52.6 H, Plt Count 129 L 11/19/22 22:21: Sodium 140, Potassium 5.2 H, BUN 24 H, Creatinine 1.30, Glucose 110 H <Barber Jasso - Last Filed: 11/20/22 17:10> Assessment and Plan - Plan Assessment: New onset Afib with slow ventricular response Pedal edema, Elevated BNP, Dyspnea, suspect underlying CHF-unknown EF CAD S/P CABG HTN HLD Plan: New onset Afib with slow ventricular response: Cardiology consult, CHADS-VASC score 3 given age, HTN, Vascular disease history, 4 if accounting for suspected CHF. Given lovenox in ED, likely to require anticoagulation at discharge. Pedal edema, Elevated BNP, Dyspnea, suspect underlying CHF-unknown EF: Continue with IV lasix for now, mild pitting edema present. Takes lasix for the last five years or so but denies known CHF, not sure when last echo was. Echo ordered. CAD S/P CABG: Continue home meds, trend troponins. HTN: Continue home meds, avoid betablockers given bradycardia. HLD: Continue statin. DVT PPX:Lovenox Code status:Full Discharge Plan: Home Plan to discharge in: 24 Hours - Advance Directives Does patient have a Living Will: No Does patient have a Durable POA for Healthcare: No - Code Status/Comfort Care Code Status Assessed: Yes (Full code) Critical Care: No Time Spent Managing Pts Care (In Minutes): 55 <Usman Baron - Last Filed: 11/20/22 00:41> Physician Review: Patient Assessed, Agree with Above Assessment and Plan <Barber Jasso - Last Filed: 11/20/22 17:10>
[2022-11-20 01:26] LABS: SARS-CoV-2 Antigen Rapid Res Negative (Negative)
[2022-11-20] MEDS ORDERED: ONDANSETRON 4 MG/2 ML VIAL IV PRN (02:18)
[2022-11-20 02:25] VITALS: BMI 30.6
[2022-11-20 05:12] LABS: Absolute Lymphocytes (CBC) 2.1 K/uL (0.7-4.9); Hematocrit 50.9 % (39.6-49.0); Lymphocytes % 17.5 % (15.3-44.8); MCV 91.8 fL (80-100); MPV 9.9 fL (7.6-11.3); RBC Red Blood Cell Count 5.55 M/uL (4.33-5.43)
[2022-11-20 05:33] LABS: Troponin High Sensitivity 26.3 pg/mL (<58.9)
[2022-11-20 05:37] LABS: Albumin 3.9 g/dL (3.4-5.0); Protein, Total 7.2 g/dL (6.4-8.2)
[2022-11-20] MEDS ORDERED: PNEUMOCOCCAL VACCINE 0.5 ML IMVAC ONE (08:00)
[2022-11-20] MEDS: FUROSEMIDE 20 MG/ 2ML VIAL IV SCH ×2 (08:40→17:02)
[2022-11-20] MEDS: ENOXAPARIN 100 MG/ML SYR SQ SCH ×2 (08:40→20:57)
[2022-11-20] MEDS ORDERED: FUROSEMIDE 20 MG/ 2ML VIAL IV ONE (12:00)
--- NOTE | 2022-11-20 17:33 | RAD REPORT ---
EXAM DESCRIPTION: US - Extrem Venous W Compress Tong - 11/19/2022 11:59 pm CLINICAL HISTORY: 72 years, Male, SWELLING COMPARISON: None FINDINGS: Multiple grayscale images as well as duplex Doppler ultrasound (color and spectral analysi s) of both lower extremities were performed. Both common femoral veins, superficial femoral veins, popliteal veins, anterior, posterior tibial and peroneal veins at the level of the calves were imaged. Spectral waveform demonstrate normal comp ressibility, phasicity and augmentation. No intraluminal defects were seen. IMPRESSION: No sonographic evidence of acute lower extremity deep venous thrombosis. Electronically signed by: Ryley Parisi MD 11/20/2022 12:12 AM COMMUTATOR V RING ASSEMBLER Due to temporary technical issues with the PACS/Fluency reporting system, reports are being signed by the in house radiologists without review as a courtesy to insure prompt reporting. The interpreting radiologist is fully responsible for the content of the report.
--- NOTE | 2022-11-20 17:35 | RAD REPORT ---
EXAM DESCRIPTION: RAD - Chest Single View - 11/19/2022 10:53 pm CLINICAL HISTORY: 72 years, Male, DYSPNEA COMPARISON: None FINDINGS: Single view of the chest was obtained portable. No prior films are available for compariso n. The heart is prominent. Sternotomy wires pericardial clips suggest previous CABG. There is intimal aortic arch cortication. The pulmonary vasculature is normal distribution. Costophrenic angles are s harp. No areas of consolidation or masses are seen. The rest of the soft tissue and bony structur es demonstrate to be unremarkable. IMPRESSION: Cardiomegaly. Status post CABG. No focal areas of acute airspace disease. Electronically signed by: Ryley Parisi MD 11/20/2022 1:13 AM FISHING ACCESSORIES MAKER Due to temporary technical issues with the PACS/Fluency reporting system, reports are being signed by the in house radiologists without review as a courtesy to insure prompt reporting. The interpreting radiologist is fully responsible for the content of the report.
--- NOTE | 2022-11-20 17:39 | EKG ---
Test Date: 2022-11-19 Test Time: 22:14:22 Welder Explosion: WOLFGANG MEASUREMENT RESULTS: Intervals: Rate: 50 OR: QRSD: 136 QT: 492 QTc: 448 [place]: P: OR: QRS: 222 T: 116 INTERPRETIVE STATEMENTS: Atrial fibrillation with slow ventricular response Right bundle branch block Lateral infarct, age undetermined Abnormal ECG No previous ECG available for comparison Electronically Signed On 11-20-22 17:38:51 DRUG ENFORCEMENT ADMINISTRATION AGENT by Raúl Meraz
[2022-11-20] MEDS ORDERED: TRAZODONE 50 MG TABLET PO PRN (20:01)
[2022-11-20] MEDS ORDERED: ALBUTEROL INHALER 60 PUFF/8 GM IH PRN (20:01)
[2022-11-20] MEDS: ATORVASTATIN 40 MG TAB PO SCH (20:56)
[2022-11-20] MEDS: MELATONIN 5 MG TABLET PO SCH (20:57)
[2022-11-20] MEDS: ROPINIROLE HCL 1 MG TAB PO SCH (20:57)
[2022-11-20] MEDS: GABAPENTIN 300 MG CAP PO SCH (20:57)
[2022-11-20] MEDS ORDERED: ATORVASTATIN 40 MG TAB PO SCH (21:00)
--- NOTE | 2022-11-20 22:52 | CON ---
Date of Consultation: 11/20/2022 Reason For Consultation: Atrial fibrillation and heart failure. History Of Present Illness: A 72-year-old male with history of hypertension, coronary artery disease status post coronary artery bypass surgery and multiple cardiac stents, presented with shortness of breath and lower extremity edema started around Thanksgiving time and D-dimer was elevated, so CT PE protocol was performed, was negative for PE. The patient was on Lasix at home, increased the dose an d did not feel better, so presented to the ER. In the ER, he was found to be in atrial fibrillation with slow ventricular rate in the 40s. The patient is not on any AV node blocking agents or antiarrh ythmic drugs. Denies having any chest pain. Past Medical History: Coronary artery disease, hypertension, dyslipidemia. Past Surgical History: CABG, multiple cardiac stents. Medications: Refer reconciliation sheet for detailed list. Allergies: NO KNOWN DRUG ALLERGIES. Family History: No premature coronary artery disease. Social History: He is an ex-smoker. Does not drink or use any drugs. Review of Systems: All systems reviewed are negative except mentioned in HPI. Physical Examination: Vital Signs: Reviewed. Head and Neck: Pupils are equal and reactive to light. Intact eye movements. No JVD. No cervical adenopathy. Neck is supple. Thyroid is not enlarged. Lungs: Clear to auscultation bilaterally. No rhonchi, wheezing, or crackles. No accessory muscle u se. Heart: Irregularly irregular. No extra sounds. Abdomen: Soft, nontender. Bowel sounds positive. No organomegaly. No masses or hernia. No rigidi ty or rebound. Extremities: No clubbing or cyanosis. Intact pulses. Skin: No rash. Neurologic: Alert, awake, oriented x3. No acute focal deficits appreciated. Lymph nodes: No cervical or axillary lymphadenopathy. Investigations: BUN 25, creatinine 1.24. NT-proBNP was 1383. Troponins x3 are negative. Assessment And Recommendations: 1.Acute on chronic congestive heart failure exacerbation, responding well to Lasix. Continue low-do se Lasix cautiously. Monitor BUN, creatinine, electrolytes, and obtain echocardiogram on Tuesday. 2.Atrial fibrillation. Rate is slow. He has been anticoagulated. I will plan for a CLAYTON-guided car dioversion on Tuesday. If he continues to be in atrial fibrillation to see what his actual heart rate without medications and based on the echo results, we will plan for further management of atrial fib rillation. Medication selection after the cardioversion. 3.Coronary artery disease. Cardiac enzymes are negative and there is no chest pain. Monitor clinic ally. SR/MODL Voice ID: [id number] Report ID: [id number]
[2022-11-21 06:34] LABS: Absolute Lymphocytes (CBC) 1.8 K/uL (0.7-4.9); Hematocrit 51.7 % (39.6-49.0); Lymphocytes % 16.9 % (15.3-44.8); MCV 91.2 fL (80-100); MPV 9.2 fL (7.6-11.3); RBC Red Blood Cell Count 5.66 M/uL (4.33-5.43)
[2022-11-21 06:44] LABS: Magnesium 2.1 mg/dL (1.6-2.4); Potassium 3.7 mmol/L (3.5-5.1)
[2022-11-21] MEDS ORDERED: FUROSEMIDE 40 MG/4 ML VIAL IV SCH (09:00)
[2022-11-21] MEDS ORDERED: BISOPROLOL 5 MG TABLET PO SCH (09:00)
[2022-11-21] MEDS: ENOXAPARIN 100 MG/ML SYR SQ SCH ×2 (09:03→20:42)
[2022-11-21] MEDS: DOCOSAHEXANOIC AC/EPA 1000 MG PO SCH (09:03)
[2022-11-21] MEDS: ramipriL 5 MG CAP PO SCH (09:03)
[2022-11-21] MEDS: COENZYME Q10- 100 MG CAP PO SCH (09:03)
[2022-11-21] MEDS: ROPINIROLE HCL 1 MG TAB PO SCH ×2 (09:03→20:43)
[2022-11-21] MEDS: GABAPENTIN 300 MG CAP PO SCH ×3 (09:04→20:43)
[2022-11-21] MEDS: FUROSEMIDE 20 MG/ 2ML VIAL IV SCH ×2 (09:32→16:14)
[2022-11-21 11:21] VITALS: O2SAT 93
--- NOTE | 2022-11-21 14:32 | P.PN ---
Subjective Date of Service: 11/21/22 Chief Complaint: New Onset A. fib, dyspnea No acute events overnight. He reports that his shortness of breath is improving; however, he continues to have mild dyspnea. His heart rate has remained in the 40s-50s. Per Dr. Merza, plan for CLAYTON-DCCV tomorrow morning. He denies chest pain or palpitations. Review of Systems 10-point ROS is otherwise unremarkable Respiratory: Shortness of Breath Cardiovascular: Orthopnea Physical Examination - Vital Signs Temperature: 97.0 F Blood Pressure: 112/71 Pulse: 63 Respirations: 14 Pulse Ox (%): 95 - Physical Exam General: Alert, In no apparent distress, Oriented x3 HEENT: Atraumatic, Mucous membr. moist/pink, EOMI, Sclerae nonicteric Neck: JVD distended (minimally) Respiratory: Crackles/rales (bibasilar - improved compared to yesterday) Cardiovascular: No gallops, No rubs, No murmurs, Edema (1+ BLE), Irregular heart rate/rhythm Gastrointestinal: Soft and benign, Non-distended, No tenderness, No rebound, No guarding Musculoskeletal: No clubbing Integumentary: No rashes Neurological: Normal speech, Normal affect Assessment And Plan - Plan # Suspected Acute on Chronic Decompensated Congestive Heart Failure with Unknown Ejection Fraction - Consult Cardiology and spoke with Dr. Meraz - recommendations appreciated - Ordered transthoracic echocardiogram - Diuresis with IV furosemide for today - Continue home ramipril - Hold home bisoprolol - Daily weights - Strict I/O - Cardiac diet, 1.5 L fluid restriction, 2 g Na restriction # New-Onset Atrial Fibrillation with Slow Ventricular Response His [id number] = 4 (CHF=1, HTN=1, CAD=1, Age 65-74=1), which warrants anticoagulation. - Evaluation thus far: - Troponin = 25.2 -> 26.3 -> 26.5 - EKG = atrial fibrillation with SVR - CXR = "Cardiomegaly. Status post CABG. No focal areas of acute airspace disease." - Potassium = 3.7, Magnesium = 2.1 - Target K> 4, Mg >2 - TSH = 6.380 - BNP = 1,383 - Transthoracic echocardiogram ordered - Overnight pulse oximeter to screen for FRANCIS - Counseled on healthy alcohol and caffeine intake - Counseled on importance of medication adherence - Management plan: - Cardiology consulted and spoke with Dr. Meraz - recommendations appreciated - Plan for [facility] on 11/22/2022 - For anticoagulation, started enoxaparin - Switch to apixaban at discharge # Coronary Artery Disease s/p CABG # Hypertension # Hyperlipidemia - Continue home atorvastatin, ramipril - Hold home bisoprolol # Subclinical Hypothyroidism - TSH 6.380, Free T4 0.90 - Counseled on this finding and advised that he follow with his PCP for further evaluation Barber Jasso M.D.
--- NOTE | 2022-11-21 20:22 | PN ---
Date of Progress Note: 11/21/2022 Subjective: Seen bedside, doing clinically well. No new complaints. Review of Systems: No chest pain or shortness of breath. No nausea, vomiting, or diarrhea. No dysuria, polyuria, or ur inary urgency. No skin rash or headache. All other systems reviewed and they were negative except w hat is mentioned in HPI. Physical Examination: Vital Signs: Reviewed. Head And Neck: Pupils are equal and reactive to light. Intact eye movements. No JVD. No cervical lymphadenopathy. Neck is supple. Thyroid is not enlarged. Lungs: Clear to auscultation bilaterally. No rhonchi, wheezing, or crackles. No accessory muscle us e. Heart: Regular rate and rhythm. No extra sounds. Abdomen: Soft, nontender. Bowel sounds positive. No organomegaly. No masses or hernia. No rigidi ty or rebound. Extremities: No edema, clubbing, or cyanosis. Intact pulses. Skin: No rash or nodules. Neurologic: Alert, awake, and oriented x3. No acute focal deficits appreciated. Lymph Nodes: No cervical or axillary lymphadenopathy. Investigations: BUN is 28 and creatinine 1.36. Assessment/recommendation: 1.Atrial flutter/possible atrial fibrillation with slow ventricular response. Plan for CLAYTON cardiove rsion tomorrow. 2.Mwzcv-ii-ldaskrx congestive heart failure exacerbation. He is euvolemic. His BUN and creatinine are slightly going up. Discontinue Lasix. 3.Acute renal failure due to diuresis. Stop the Lasix and re-dose it on as needed basis. SR/MODL Voice ID: [id number] Report ID: [id number]
[2022-11-21] MEDS: ATORVASTATIN 40 MG TAB PO SCH (20:42)
[2022-11-21] MEDS: MELATONIN 5 MG TABLET PO SCH (20:43)
[2022-11-22 06:07] LABS: Absolute Lymphocytes (CBC) 2.4 K/uL (0.7-4.9); Hematocrit 55.8 % (39.6-49.0); Lymphocytes % 18.6 % (15.3-44.8); MCV 91.4 fL (80-100); MPV 8.8 fL (7.6-11.3)
[2022-11-22 06:25] LABS: Potassium 4.5 mmol/L (3.5-5.1)
[2022-11-22] MEDS ORDERED: PHENOL 1.4% ORAL SPRAY 180ML ONE (06:49)
[2022-11-22] MEDS ORDERED: NA CHLORIDE 0.9% 500 ML ONE (06:50)
[2022-11-22] MEDS: GABAPENTIN 300 MG CAP PO SCH ×2 (09:00→13:06)
[2022-11-22] MEDS: ENOXAPARIN 100 MG/ML SYR SQ SCH (09:00)
[2022-11-22] MEDS: ROPINIROLE HCL 1 MG TAB PO SCH (09:00)
[2022-11-22] MEDS: COENZYME Q10- 100 MG CAP PO SCH (09:00)
[2022-11-22] MEDS: DOCOSAHEXANOIC AC/EPA 1000 MG PO SCH (09:00)
[2022-11-22] MEDS: ramipriL 5 MG CAP PO SCH (09:00)
[2022-11-22 16:12] VITALS: BP 133/64; TEMP 97
--- NOTE | 2022-11-22 19:49 | PN ---
Date of Progress Note: 11/22/2022 Subjective: Seen at bedside, doing clinically well. Review of Systems: No chest pain, shortness of breath, orthopnea, cough, nausea, vomiting, diarrhea. All other systems reviewed, they are negative. Physical Examination: Vital Signs: Temperature is 96.8, pulse 56, breathing at 14, blood pressure 124/60, saturating 98% o n room air. General: Pleasant elderly male, in no apparent distress. Head and Neck: Pupils are eq ual, reactive to light. Intact eye movements. Neck: No JVD. No cervical lymphadenopathy. Neck is supple. Thyroid is not enlarged. Lungs: Clear to auscultation bilaterally. No rhonchi, rales, or crackles. No accessory muscle use. Heart: Irregularly irregular. No extra sounds. Abdomen: Soft, nontender. Bowel sounds positive. No organomegaly. No masses or hernia. No rigidi ty or rebound. Extremities: No edema, clubbing, or cyanosis. Intact pulses. Skin: No rash. Neur ologic: Alert, awake, oriented x3. No acute focal deficits appreciated. Investigations: BUN 28, creatinine 1.37, and hemoglobin is 15.8. Assessment And Recommendation: 1.Acute on chronic diastolic heart failure. On echo, his ejection fraction is normal. Appears to b e euvolemic. I do not believe he needs Lasix as he is slightly on the dry side. Low-salt diet is re commended and follow up with me in the office in 4 weeks. 2.Atrial fibrillation, status post CLAYTON. Has small left atrial appendage thrombus. Continue on anti coagulant. Discontinue the Lovenox and start Eliquis 5 mg twice a day, to continue that at home. Follow up with me in 4 weeks. At that time, we will plan for cardioversion. SR/MODL Voice ID: [id number] Report ID: [id number]
[2022-11-22] MEDS ORDERED: APIXABAN 5 MG TABLET PO SCH (21:00)
--- NOTE | 2022-11-22 22:31 | OP ---
Date of Procedure: 11/22/2022 Surgeon: LUCY HECTOR Procedure Performed: Transesophageal echocardiogram. Indication: Pre cardioversion due to atrial fibrillation. Description Of Procedure: After risks, benefits, and alternatives were explained, the patient agreed to the procedure and signed informed consent. The patient was brought into the Endo Suite and using viscous lidocaine to numb the back of his throat and then I gave him 5 mg of Versed and then inserte d the CLAYTON probe without difficulty. CLAYTON was performed and the patient had small left atrial appendag e flow thrombus. Then, the probe was removed. The patient tolerated the procedure very well. Conclusion: Left atrial appendage thrombus. Cardioversion was not done. Recommendation: Eliquis 5 mg twice a day and in 4 weeks to re-evaluate for another CLAYTON-guided cardio version. SR/MODL Voice ID: [id number] Report ID: [id number]
--- NOTE | 2022-11-23 06:51 | TEE ---
TRANSESOPHAGEAL ECHOCARDIOGRAM REPORT CARDIOLOGY DEPARTMENT DATE OF STUDY: 11/22/2022 HEIGHT: 5'10" WEIGHT: 213 lbs DIAGNOSIS: CARDIOSERVER FRONT OFFICE CLERK COMMENTS: CLAYTON CARDIAC HISTORY: CATHERIZATION: SURGERY: PROSTHETIC VALVE: PACEMAKER: 2 DIMENSIONAL ASSESSMENT: RIGHT ATRIUM: NORMAL LEFT ATRIUM: NORMAL RIGHT VENTRICLE: NORMAL LEFT VENTRICLE: NORMAL TRICUSPID VALVE: NORMAL MITRAL VALVE: MODERATE MITRAL REGURGITATION PULMONIC VALVE: NORMAL AORTIC VALVE: NORMAL PERICARDIAL EFFUSION: NONE AORTIC ROOT: NORMAL EJECTION FRACTION: 55-60 % LEFT VENTRICULAR WALL MOTION: NORMAL DOPPLER/COLOR FLOW: MODERATE MITRAL REGURGITATION COMMENTS: 1. NORMAL LEFT VENTRICULAR EJECTION FRACTION 55-60% 2. ATRIAL FIBRILLATION 3. MODERATE MITRAL REGURGITATION 4. SMALL LEFT ATRIAL APPENDAGE THROMBUS TECHNOLOGIST: HILDA FLORES
== END 2022-11-22 16:45 | disposition home or self-care (01) | DRG 308 ==
LOC: ER 21:14 → ERHOLD 11-20 00:34 → 2ND 11-20 01:56 → OBSVTOIN 11-22 14:58
PROVIDERS: ADMIT Internal Medicine; ATTEND Hospitalist
PROC: B245ZZ4 Ultrasonography of Left Heart, Transesophageal (ICD-10-PCS; principal; 2022-11-22)
DX: I48.91 Unspecified atrial fibrillation (principal); I50.33 Acute on chronic diastolic (congestive) heart failure; N17.9 Acute kidney failure, unspecified; I11.0 Hypertensive heart disease with heart failure; I51.3 Intracardiac thrombosis, not elsewhere classified; I48.92 Unspecified atrial flutter; I34.0 Nonrheumatic mitral (valve) insufficiency; I25.10 Atherosclerotic heart disease of native coronary artery without angina pectoris; E78.5 Hyperlipidemia, unspecified; E03.8 Other specified hypothyroidism; I25.2 Old myocardial infarction; Z95.1 Presence of aortocoronary bypass graft; Z95.5 Presence of coronary angioplasty implant and graft; Z79.899 Other long term (current) drug therapy; Z87.891 Personal history of nicotine dependence; Z20.822 Contact with and (suspected) exposure to COVID-19; Z82.49 Family history of ischemic heart disease and other diseases of the circulatory system; Z80.9 Family history of malignant neoplasm, unspecified
CPT/HCPCS: 36415; 71045; 80048; 80053; 80061; 80076; 83735; 83880; 84439; 84443; 84484; 85025; 85610; 87811; 93005; 93312; 93970; 96372; 96374; 99285; G0378; J1650; J1940; J7040

== ENCOUNTER → 2023-01-04 | Day surgery (SDC) | payer OTHER, MEDICARE ==
[~2023-01-04] MED LIST: ATROPINE SULF 1 MG/10 ML SYR IV ONE; FENTANYL CITR 100 MCG/2 ML ONE; FLUMAZENIL 0.1 MG/ML (5 mL VIAL) IV ONE; LIDOCAINE VISCOUS 2% SOLN 15 ML UDC ONE; MIDAZOLAM HCL 10 ML ONE; NA CHLORIDE 0.9% 500 ML ONE; NALOXONE 0.4 MG/ML VIAL ONE; PHENOL 1.4% ORAL SPRAY 180ML ONE
[2023-01-04 15:01] LABS: MPV 8.2 fL (7.6-11.3); RBC Red Blood Cell Count 5.23 M/uL (4.33-5.43)
[2023-01-04 15:08] LABS: Protime INR 1.53
[2023-01-05 14:43] VITALS: BP 103/40; O2SAT 99
--- NOTE | 2023-01-05 15:23 | EKG ---
Test Date: 2023-01-04 Test Time: 14:37:15 Director Surface Transportation: MEASUREMENT RESULTS: Intervals: Rate: 66 NM: QRSD: 158 QT: 434 QTc: 454 [place]: P: NM: QRS: -28 T: 41 INTERPRETIVE STATEMENTS: Atrial fibrillation Right bundle branch block Minimal voltage criteria for LVH, may be normal variant Possible Lateral infarct, age undetermined Cannot rule out Inferior infarct, age undetermined Abnormal ECG Compared to ECG 11/19/2022 22:14:22 Left ventricular hypertrophy now present Myocardial infarct finding still present Myocardial infarct finding still present Electronically Signed On 01-05-23 15:20:11 INSTRUCTOR ADJUNCT SURGICAL TECHNICIAN by Raúl Meraz
== END | disposition home or self-care (01) ==
LOC: CCL 08:00
PROVIDERS: ATTEND Internal Medicine
PROC: B24BZZ4 Ultrasonography of Heart with Aorta, Transesophageal (ICD-10-PCS; principal; 2023-01-04)
DX: I48.91 Unspecified atrial fibrillation (principal); Z53.8 Procedure and treatment not carried out for other reasons; I11.0 Hypertensive heart disease with heart failure; I50.30 Unspecified diastolic (congestive) heart failure; I25.10 Atherosclerotic heart disease of native coronary artery without angina pectoris; I45.10 Unspecified right bundle-branch block; E78.5 Hyperlipidemia, unspecified; Z95.1 Presence of aortocoronary bypass graft; F17.210 Nicotine dependence, cigarettes, uncomplicated; Z79.82 Long term (current) use of aspirin; Z79.01 Long term (current) use of anticoagulants; Z79.899 Other long term (current) drug therapy
CPT/HCPCS: 36415; 80048; 85025; 85610; 85730; 93005; J0461; J2250; J2310; J3010; J7040

== ENCOUNTER 2023-01-14 08:20 | Day surgery (SDC) | payer OTHER, MEDICARE ==
[~2023-01-14 08:20] MED LIST changes: -FENTANYL CITR 100 MCG/2 ML ONE; -FLUMAZENIL 0.1 MG/ML (5 mL VIAL) IV ONE; +LIDOCAINE 2% MPF 5 ML VIAL ONE; +METOPROLOL TARTRATE 5 MG/5 ML INJ IV ONE; -MIDAZOLAM HCL 10 ML ONE; +MIDAZOLAM HCL 2 MG/2 ML INJ ONE; -NALOXONE 0.4 MG/ML VIAL ONE; +propofoL 200 MG/20 ML VIAL IV ONE
[2023-01-14] MEDS ORDERED: AMIODARONE HCL 150 MG in D5W 100 ML IV SCH (09:00)
[2023-01-14 11:52] VITALS: BP 129/90; O2SAT 99
--- NOTE | 2023-01-15 02:26 | OP ---
Date of Procedure: 01/14/2023 Surgeon: LUCY HECTOR Procedure Performed: 1.Transesophageal echocardiogram. 2.Electrical cardioversion. Diagnosis: Atrial fibrillation. Description Of Procedure: After risks, benefits, and alternatives were explained, the patient agreed to the procedure and signed informed consent. Then, the back of the throat was numbed using local l idocaine. Anesthesia was present and administered propofol after heavy sedation and deep sedation. CLAYTON probe was inserted without difficulties and there was no left atrial appendage thrombus seen. As such, we removed the CLAYTON probe without complications and then charged the paddles to 200 joules and synchronized electrical cardioversion was done successfully converting into normal sinus rhythm. Conclusion: Successful CLAYTON guided electrical cardioversion to normal sinus rhythm. Plan: Amiodarone load 180 and then to put him on 20 mg by mouth twice a day. Follow up with me in t he office in 4 weeks and continue Oma. SR/MODL Voice ID: [id number] Report ID: [id number]
--- NOTE | 2023-01-17 07:21 | TEE ---
TRANSESOPHAGEAL ECHOCARDIOGRAM REPORT CARDIOLOGY DEPARTMENT DATE OF STUDY: 01/14/2023 HEIGHT: 5'10" WEIGHT: 209 lbs DIAGNOSIS: CARDIOVERSION CORPORATE SECRETARY COMMENTS: CLAYTON CARDIAC HISTORY: CATHERIZATION: SURGERY: PROSTHETIC VALVE: PACEMAKER: 2 DIMENSIONAL ASSESSMENT: RIGHT ATRIUM: [*] LEFT ATRIUM: RIGHT VENTRICLE: LEFT VENTRICLE: TRICUSPID VALVE: MITRAL VALVE: PULMONIC VALVE: AORTIC VALVE: PERICARDIAL EFFUSION: AORTIC ROOT: EJECTION FRACTION: 55-60 % LEFT VENTRICULAR WALL MOTION: DOPPLER/COLOR FLOW: COMMENTS: 1. NORMAL LEFT VENTRICULAR EJECTION FRACTION 55-60% 2. NO LEFT ATRIAL APPENDAGE THROMBUS IS SEEN. TECHNOLOGIST: FARIDA SILVESTRE
== END 2023-01-14 09:15 | disposition home or self-care (01) ==
LOC: CCL 08:20
PROVIDERS: ATTEND Internal Medicine
DX: I48.91 Unspecified atrial fibrillation (principal); I25.10 Atherosclerotic heart disease of native coronary artery without angina pectoris; I10 Essential (primary) hypertension; I25.2 Old myocardial infarction; G25.81 Restless legs syndrome; Z95.1 Presence of aortocoronary bypass graft; Z95.5 Presence of coronary angioplasty implant and graft
CPT/HCPCS: 93312; 92960; J2704; J2001; J2250; J7040; J0461

== ENCOUNTER 2024-07-19 06:30 | Day surgery (SDC) | payer OTHER, MEDICARE ==
[2024-07-12 11:37] LABS: Absolute Basophils 0.1 K/uL (0-0.5); Absolute Eosinophils 0.2 K/uL (0-0.5); Absolute Lymphocytes (CBC) 1.7 K/uL (0.7-4.9); Absolute Monocytes 0.5 K/uL (0.1-1.3); Absolute Neutrophil 5.4 K/uL (1.8-8.0); Basophils % 0.8 % (0-1.3); Hematocrit 48.4 % (39.6-49.0); Hemoglobin 16.3 g/dL (13.6-17.9); Lymphocytes % 21.9 % (15.3-44.8); MCH 32.1 pg (27.0-35.0); MCHC 33.6 g/dL (32.0-36.0); MCV 95.7 fL (80-100); MPV 8.9 fL (7.6-11.3); Monocytes % 6.4 % (3.3-12.3); Neutrophils % 68.9 % (41.7-73.7); Platelets 152 thou/uL (152-406); RBC Red Blood Cell Count 5.06 M/uL (4.33-5.43); Red Cell Distribution Width 13.7 % (12.1-15.2)
[2024-07-12 11:44] LABS: PT Prothrombin Time 10.9 SECONDS (9.4-12.5); PTT, Activated Partial Thromb 38.3 SECONDS (24.3-36.9); Protime INR 0.97
--- NOTE | 2024-07-12 11:46 | RAD REPORT ---
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 COMPARISON: Chest Single View dated 11/19/2022 TECHNIQUE: PA and lateral views of the chest were obtained. FINDINGS: The lungs are hyperexpanded compatible with COPD. The heart is upper limit of normal in si ze. No fracture or aggressive bony process. Sternotomy wires. IMPRESSION: COPD without acute process identified.
[2024-07-12 11:53] LABS: Anion Gap 9.1 mEq/L (5.0-15.0); Potassium 4.1 mEq/L (3.5-5.1)
--- NOTE | 2024-07-13 14:40 | EKG ---
Test Date: 2024-07-12 Test Time: 11:22:51 Lock Assembler: MELI MEASUREMENT RESULTS: Intervals: Rate: 69 WI: 408 QRSD: 146 QT: 430 QTc: 460 [place]: P: 64 WI: 408 QRS: -31 T: 83 INTERPRETIVE STATEMENTS: Sinus rhythm with 1st degree AV block Left axis deviation Right bundle branch block Lateral infarct, age undetermined Inferior infarct, age undetermined Abnormal ECG Compared to ECG 01/04/2023 14:37:15 First degree AV block now present Left-axis deviation now present Atrial fibrillation no longer present Left ventricular hypertrophy no longer present Myocardial infarct finding still present Electronically Signed On 07-13-24 14:38:43 CDT by Spike Ma
[2024-07-19] MEDS ORDERED: NA CHLORIDE 0.9% 500 ML ONE (07:04)
[2024-07-19] MEDS ORDERED: HEPARIN 10,000 UNIT/10 ML VIAL IV ONE (07:13)
[2024-07-19] MEDS ORDERED: NITROGLYCERIN/D5W 50 MG/250 ML BTL IV ONE (07:13)
[2024-07-19] MEDS ORDERED: HEPA 1000U/500MLS 2,000 UNIT/1,000 ML BAG IV ONE (07:13)
[2024-07-19] MEDS ORDERED: LIDOCAINE 1% 20 ML MDV ONE (07:13)
[2024-07-19] MEDS ORDERED: HEPARIN 5000 UNIT/ML 1 ML VIAL ONE (07:14)
[2024-07-19] MEDS ORDERED: CLOPIDOGREL 75 MG TABLET ONE (07:14)
[2024-07-19] MEDS ORDERED: FENTANYL CITR 100 MCG/2 ML ONE (07:14)
[2024-07-19] MEDS ORDERED: ATROPINE SULF 1 MG/10 ML SYR IV ONE (07:14)
[2024-07-19] MEDS ORDERED: MIDAZOLAM HCL 2 MG/2 ML INJ ONE (07:14)
[2024-07-19] MEDS ORDERED: ASPIRIN 325 MG TAB ONE (07:15)
[2024-07-19] MEDS ORDERED: TICAGRELOR 90 MG TABLET PO ONE (07:15)
[2024-07-19 08:57] VITALS: TEMP 97.5
[2024-07-19 09:57] VITALS: O2SAT 98
[2024-07-19 10:39] VITALS: BP 115/56
--- NOTE | 2024-07-19 10:57 | OP ---
Date of Procedure: 07/19/2024 Surgeon: Spike Ma Procedures Performed: 1.Left heart catheterization. 2.Selective coronary angiogram of bypass graft. Indication For Procedure: History of CAD with abnormal stress test. Complications: None. Estimated Blood Loss: Less than 50 cc. Access: Right common femoral artery, closed by an Angio-Seal. Sedation Time: 30 minutes with 1 of Versed and 50 of fentanyl. Description Of Procedure: After risks, benefits, and alternatives were explained to the patient, the patient agreed to proceed with the procedure and signed informed consent. The patient was brought b k to the cardiac cath rn, prepped and draped in sterile fashion. Time-out was performed. Sedation was ad ministered. Next, right common femoral artery access was obtained using ultrasound-guided micropunct ure technique. A JL4 catheter was advanced over the J-wire. Selective coronary angiogram was done. That was exchanged with a JR4 catheter for the LVEDP. Pullback did not show any gradient. Same cat heter was used for the right coronary angiograms and for the bypass graft angiogram. At the end of t he procedure, sheath was removed. Angio-Seal was applied and hemostasis was achieved. The patient w as moved back to recovery in stable condition. Findings: 1.Left main, normal. 2.LAD, mid 100% occluded, then gives a large diagonal before that. 3.Left circ, mild luminal irregularities, gives OM1 with ostial 60% to 70% disease, then OM2 with mi ld luminal irregularities. 4.RCA, proximal occluded with nayh-gn-iwwwk collaterals into the small RPDA. No line graft. 5.ORTEGA to LAD is patent, distal ORTEGA not like 40% disease. 6.SVG to RPDA is occluded. 7.SVG to OM is occluded. Assessment And Plan: 1.Significant LAD disease with patent free ORTEGA bypass. 2.Significant proximal RCA disease with occluded graft with good pyua-jq-hiyac collaterals. 3.Moderate OM1 disease with occluded graft. SVG to OM is occluded. 4.The plan will be to continue aggressive medical management for CAD. ARNALDO/POONAM Voice ID: [id number] Report ID: [id number]
== END 2024-07-19 10:41 | disposition home or self-care (01) ==
LOC: CCL 06:30
PROVIDERS: ATTEND Internal Medicine Interventional Cardiology
DX: I25.110 Atherosclerotic heart disease of native coronary artery with unstable angina pectoris (principal); I25.700 Atherosclerosis of coronary artery bypass graft(s), unspecified, with unstable angina pectoris; I25.82 Chronic total occlusion of coronary artery; I11.0 Hypertensive heart disease with heart failure; I50.32 Chronic diastolic (congestive) heart failure; I35.1 Nonrheumatic aortic (valve) insufficiency; I48.11 Longstanding persistent atrial fibrillation; E78.2 Mixed hyperlipidemia; F17.210 Nicotine dependence, cigarettes, uncomplicated; Z79.01 Long term (current) use of anticoagulants; Z79.899 Other long term (current) drug therapy
CPT/HCPCS: 93005; 85025; 80048; 36415; 85610; 85730; 71046; 93459; 76937; C1893; C1760; Q9967; G0269; J1644; J2001; J2250; J3010; J7040; 99152; 99153; J0461